=== PATIENT | male | born 1935 | race Caucasian/White ===

== ENCOUNTER → 2021-07-04 12:26 | Outpatient (CLI) | payer MEDICARE, SELFPAY ==
--- NOTE | ~2021-07-04 | XR_ITS ---
XR chest 2V 07/04/2021 12:55 Indication: COPD. Dyspnea. Procedure: 2 view chest Comparison: 02/20/2019 Findings: Status post median sternotomy for CABG. Pacemaker leads are stable. Cardiomegaly. 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 No focal pneumonia, edema, pleural ef fusion or pneumothorax. No acute osseous abnormality Impression: 1: No acute cardiopulmonary disease. Reviewed, dictated and finalized at location B. Impression: 1: No acute cardiopulmonary disease.
== END ==
PROVIDERS: Visit Provider Internal Medicine
DX: J44.9 Chronic obstructive pulmonary disease, unspecified (principal); I50.9 Heart failure, unspecified; I51.7 Cardiomegaly
CPT/HCPCS: 71046

== ENCOUNTER 2022-06-08 14:55 | Outpatient (CLI) | payer MEDICARE, SELFPAY ==
--- NOTE | ~2022-06-08 | CT_ITS ---
EXAMINATION: CT lumbar spine wo con DATE: 06/08/2022 15:19 INDICATION: Low back pain. TECHNIQUE: Computed tomography (CT) of the lumbar spine was performed without intravenous contrast. A utomated exposure control and iterative reconstruction technique were employed. The dose-length produ ct was 1157.38 mGy-cm. COMPARISON: CT lumbar spine 10/27/2014 FINDINGS: Partially visualized is cardiomegaly. There is 7 degrees dextrocurvature of lumbar spine. T here is mild chronic anterior wedging of L2 vertebral body. There is 3 mm retrolisthesis of L3 on L4. There are changes of posterior fusion procedure at L4-L5 with pedicle screws. There is mildly decrea sed disc height at L1-L2 and severely decreased disc height at L3-L4 and L5-S1 with endplate remodeli ng. A bone stimulator is noted. There are bone graft donor sites in the bilateral iliac bones. The fo llowing disc levels are specifically discussed: L1-L2: The disc is bulging. There is severe bilateral facet joint osteoarthritis. There is mild bilat eral neural foraminal stenosis. There is mild central canal stenosis. L2-L3: The disc is bulging. There is severe bilateral facet joint osteoarthritis. There is moderate b ilateral neural foraminal stenosis. There is moderate central canal stenosis. L3-L4: The disc is bulging. There is severe bilateral facet joint osteoarthritis. There is moderate b ilateral neural foraminal stenosis. There is mild central canal stenosis. There is severe stenosis of right lateral recess. L4-L5: There is no facet joint hypertrophy. There is no neural foraminal stenosis. There is no centra l canal stenosis. L5-S1: The disc is bulging. There is severe bilateral facet joint osteoarthritis. There is moderate b ilateral neural foraminal stenosis. There is mild central canal stenosis. IMPRESSION: 1. Severe lumbar spondylosis, stable from 10/27/2014. 2. Posterior fusion procedure at L4-L5. Reviewed, dictated and finalized at location A.
== END 2022-06-08 14:56 | disposition home or self-care (01) ==
PROVIDERS: PCP Family Medicine; Visit Provider Family Medicine
DX: G89.29 Other chronic pain (principal); G95.19 Other vascular myelopathies; M54.9 Dorsalgia, unspecified; M47.816 Spondylosis without myelopathy or radiculopathy, lumbar region; Z98.1 Arthrodesis status
CPT/HCPCS: 72131

== ENCOUNTER 2022-08-06 09:45 | Outpatient (CLI) | payer MEDICARE, SELFPAY ==
[2022-08-06 10:28] LABS: INR 1.2; Prothrombin Time 14.7 Seconds (11.1-14.7)
== END 2022-08-06 09:46 | disposition home or self-care (01) ==
PROVIDERS: PCP Family Medicine; Visit Provider Pain Medicine Pain Medicine
DX: Z79.01 Long term (current) use of anticoagulants (principal)
CPT/HCPCS: 36415; 85610

== ENCOUNTER → 2022-10-09 09:43 | Outpatient (CLI) | payer MEDICARE, SELFPAY ==
--- NOTE | ~2022-10-09 | XR_ITS ---
AP view of the pelvis and AP and lateral views of the left hip Clinical history: Pain Findings: No acute fracture or dislocation is seen. Osseous alignment is anatomic. Right hip arthropl asty in place. There is moderate degenerative change of the left hip joint. Soft tissues are unremark able. Impression: Moderate degenerative change of the left hip joint. Right hip arthroplasty. Reviewed, dictated and finalized at location . 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 Right hip arthroplasty.
== END ==
PROVIDERS: PCP Family Medicine; Visit Provider Nurse Practitioner Family
DX: M25.552 Pain in left hip (principal); Z96.641 Presence of right artificial hip joint; R93.6 Abnormal findings on diagnostic imaging of limbs
CPT/HCPCS: 73502

== ENCOUNTER 2023-01-02 11:30 | Outpatient (CLI) | payer MEDICARE, SELFPAY ==
[2023-01-02 12:07] LABS: Sodium 141 mmol/L (137-145)
[2023-01-02 12:08] LABS: Anion Gap 6 mmol/L (8-16); Blood Urea Nitrogen 23 mg/dL (9-20); Carbon Dioxide 32 mmol/L (22-30); Chloride 103 mmol/L (98-107); Estimated Glomerular Filt Rate > 60; Glucose 92 mg/dL (65-110); Magnesium 2.3 mg/dL (1.6-2.3); Potassium 4.3 mmol/L (3.4-5.0)
[2023-01-02 12:10] LABS: INR 2.1; Prothrombin Time 22.5 Seconds (11.1-14.7)
== END 2023-01-02 11:31 | disposition home or self-care (01) ==
PROVIDERS: PCP Family Medicine; Visit Provider Internal Medicine Cardiovascular Disease
DX: Z01.812 Encounter for preprocedural laboratory examination (principal); I48.92 Unspecified atrial flutter; I48.0 Paroxysmal atrial fibrillation
CPT/HCPCS: 36415; 80048; 83735; 85610

== ENCOUNTER 2023-01-18 10:48 | Outpatient (CLI) | payer MEDICARE, SELFPAY ==
[2023-01-18 12:19] LABS: Basophils Percent Auto 0.4 % (0.2-1.2); Eosinophils Absolute Auto 0.1 K/mm3 (0-0.3); Eosinophils Percent Auto 1.4 % (0-4.4); Hematocrit 39.9 % (42.0-52.0); Hemoglobin 12.8 g/dL (14.0-18.0); Immature Granulocyte Absolute 0.03 K/mm3 (0.00-0.031); Immature Granulocyte Percent A 0.4 % (0-0.5); Lymphocytes Absolute Auto 1.14 K/mm3 (0.9-3.2); Lymphocytes Percent Auto 16.5 % (18.3-44.2); Mean Corpuscular HGB Conc 32.1 g/dl (32-36); Mean Corpuscular Volume 93.7 fl (80-100); Mean Platelet Volume 9.1 fl (7.4-10.4); Monocytes Absolute Auto 0.6 K/mm3 (0.1-0.6); Monocytes Percent Auto 8.5 % (2.6-8.5); Neutrophils Percent Auto 72.8 % (45.5-73.1); Platelet Count Result 151 k/mm3 (150-375); Red Blood Count 4.26 M/mm3 (4.6-6.20); Red Cell Distribution Width 16.2 % (11.5-14.5); White Blood Count 6.9 K/mm3 (4.5-10.0)
[2023-01-18 12:42] LABS: Alanine Aminotransferase 28 U/L (6-50); Albumin Level 4.2 g/dL (3.5-5.1); Alkaline Phosphatase 82 U/L (38-126); Anion Gap 3 mmol/L (8-16); Aspartate Amino Transferase 30 U/L (17-59); Bilirubin,Total 1.2 mg/dL (0.2-1.3); Blood Urea Nitrogen 23 mg/dL (9-20); Calcium 8.5 mg/dL (8.4-10.2); Carbon Dioxide 30 mmol/L (22-30); Chloride 106 mmol/L (98-107); Cholesterol 112 mg/dL (0-200); Estimated Glomerular Filt Rate > 60; Glucose 101 mg/dL (65-110); HDL Direct 42 mg/dL; Potassium 4.2 mmol/L (3.4-5.0); Sodium 139 mmol/L (137-145); Triglycerides 109 mg/dL (<150); Uric Acid 3.2 mg/dL (3.5-8.5)
[2023-01-18 12:53] LABS: LDL Cholesterol Direct 39 mg/dL
[2023-01-18 14:30] LABS: Hemoglobin A1C 5.7 % (<5.7)
== END 2023-01-18 10:49 | disposition home or self-care (01) ==
PROVIDERS: PCP Family Medicine; Visit Provider Internal Medicine Cardiovascular Disease
DX: R10.9 Unspecified abdominal pain (principal); M79.606 Pain in leg, unspecified; Z95.810 Presence of automatic (implantable) cardiac defibrillator; G20 Parkinson's disease; M19.90 Unspecified osteoarthritis, unspecified site; R20.0 Anesthesia of skin; I42.9 Cardiomyopathy, unspecified; R06.02 Shortness of breath; E78.2 Mixed hyperlipidemia; R42 Dizziness and giddiness; I50.9 Heart failure, unspecified; I49.3 Ventricular premature depolarization; I34.0 Nonrheumatic mitral (valve) insufficiency; G47.00 Insomnia, unspecified; K92.2 Gastrointestinal hemorrhage, unspecified; I49.01 Ventricular fibrillation; I47.20 Ventricular tachycardia, unspecified; R07.9 Chest pain, unspecified; M25.559 Pain in unspecified hip; D64.9 Anemia, unspecified; E03.9 Hypothyroidism, unspecified; I48.0 Paroxysmal atrial fibrillation; Z79.01 Long term (current) use of anticoagulants; I25.10 Atherosclerotic heart disease of native coronary artery without angina pectoris; I45.10 Unspecified right bundle-branch block; G47.30 Sleep apnea, unspecified; R19.7 Diarrhea, unspecified; N18.9 Chronic kidney disease, unspecified; Z85.828 Personal history of other malignant neoplasm of skin; I48.92 Unspecified atrial flutter; Z87.891 Personal history of nicotine dependence; Z86.69 Personal history of other diseases of the nervous system and sense organs; Z01.812 Encounter for preprocedural laboratory examination; Z01.810 Encounter for preprocedural cardiovascular examination; Z23 Encounter for immunization
CPT/HCPCS: 36415; 80053; 80061; 82248; 83036; 84550; 85025

== ENCOUNTER 2023-02-06 16:15 | Emergency (ER) | payer MEDICARE, SELFPAY ==
[2023-02-06 16:26] VITALS: BP 140/73; PULSE 84; RESP 18; TEMP 36.5; O2SAT 92
[2023-02-06 16:48] LABS: Appearance Urine Clear (Clear); Bilirubin Urine Negative (Negative); Blood Urine Negative (Negative); Color Urine Dark Yellow (Yellow); Glucose Urine UA Negative (Negative); Ketones Urine Negative (Negative); Leukocyte Esterase Ur Negative LEU/UL (Negative); Nitrate Urine Negative (Negative); Protein Urine Negative (Negative); Specific Grav Ur 1.015 (1.001-1.035); Urobilinogen Urine 0.2 mg/dL (<2.0)
[2023-02-06 16:52] LABS: Add Urine Microscopic? NO
--- NOTE | 2023-02-06 17:36 | ED.GENADULT ---
HPI - General Adult General Chief complaint: Urogenital-Male Stated complaint: sent by heart , concerned for bladder Time Seen by Provider: 02/06/23 17:25 History of Present Illness HPI narrative: 87-year-old male with a history of BPH here for evaluation of abnormal ultrasound done as an outpatient. Patient states that his booking officer ordered an abdominal ultrasound due to some nausea and diarrhea, this was done today and he was referred to the ED because his bladder was distended. Patient states that he did not urinate prior to the exam. He does state that he has some difficulty with urinary retention over the past year or so but he has been able to void and denies any discomfort in his abdomen, blood in his urine, burning with urination. This has been attributed to BPH in the past that he follows with Dr. Briceno. He has never required a urinary catheter. Related Data Home Medications Medication Instructions Recorded Confirmed allopurinol 300 mg tablet 300 mg PO DAILY 09/23/19 01/28/23 dofetilide 500 mcg capsule 500 mcg PO ONCE 09/23/19 01/28/23 magnesium oxide 400 mg PO DAILY 09/23/19 01/28/23 tamsulosin 0.4 mg capsule 0.4 mg PO DAILY 09/23/19 01/28/23 furosemide 40 mg tablet 20 mg PO QAM 04/26/21 01/28/23 sacubitril 24 mg-valsartan 26 mg 1 tablet PO BID 04/26/21 01/28/23 tablet (Entresto) atorvastatin 20 mg tablet 20 mg PO DAILY 10/26/21 01/28/23 budesonide 160 mcg-glycopyr 9 2 inh inhalation QAM AND QPM 10/26/21 01/28/23 mcg-formot 4.8 mcg/actuation HFA inhaler (Breztri Aerosphere) cholecalciferol (vitamin D3) 50 50 mcg PO DAILY 03/02/22 01/28/23 mcg (2,000 unit) capsule omega-3 417 mg-dha 120 mg-epa-276 cap PO 03/02/22 01/28/23 mg-fish oil 600 mg-tumeric capsule ([place] MonoPure Curcumin EC) turmeric 400 mg capsule mg PO 03/02/22 01/28/23 warfarin 5 mg tablet 7.5 mg PO QMWF 04/25/22 01/28/23 Allergies Allergy/AdvReac Type Severity Reaction Status Date / Time codeine Allergy Mild rash Verified 02/06/23 16:17 Review of Systems Review of Systems: Gen.: Denies fevers or chills Eyes: Denies eye pain or visual change ENT: Denies congestion Respiratory: Denies shortness of breath or cough CV: Denies chest pain or palpitations GI: Denies abdominal pain nausea, emesis or diarrhea reports chronic urinary retention. 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 Smoked 22 years, less than 1/2 ppd. Surgical History Surgical History AICD (automatic cardioverter/defibrillator) present H/O mitral valve replacement History of total hip arthroplasty R Family History Family History Sibling Family history of cardiovascular disease, Onset Age: 49 Mother Family history of malignant neoplasm, Onset Age: 82 Other Family history of Hodgkin's lymphoma Family history of gastrointestinal disorder Hypertension Social History Social History (Updated 01/25/23 @ 09:44 by Yamileth Malone) Social History: Smoking status: Former smoker Tobacco type: cigarettes Second hand tobacco smoke exposure: No Smoking end date: 09/16/75 Alcohol intake: never Substance use: never Substance use type: does not use Lack of Transportation: No Lack of Food: Never True Current Housing: I Have Housing Concerned About Future Housing: No Difficulty Paying Gas/Electric Bills: No Difficult
[2023-02-06 18:00] VITALS: BP 112/78; PULSE 80; RESP 16; O2SAT 98
--- NOTE | 2023-02-06 18:16 | PC.NURSE ---
bladder scan showing 360ml of urine in bladder after attempting to urinate
[2023-02-06] MEDS: LIDOCAINE HCL 2% GEL UROJET 10 ML PKG (18:44)
--- NOTE | 2023-02-06 18:45 | PC.NURSE ---
attempted to insert a 16Fr indwelling urinary catheter without success. catheter would not advance. urojet instilled into urethra preparing for a coude.
[2023-02-06 18:48] VITALS: BP 127/85; PULSE 80; RESP 16; O2SAT 97
[2023-02-06 19:26] VITALS: BP 133/82; PULSE 80; RESP 17; TEMP 36.6; O2SAT 98
== END 2023-02-06 20:56 | disposition home or self-care (01) ==
PROVIDERS: Emergency Medicine; Emergency Provider Physician Assistant; PCP Family Medicine
DX: N40.1 Benign prostatic hyperplasia with lower urinary tract symptoms (principal); R33.8 Other retention of urine; I48.20 Chronic atrial fibrillation, unspecified; Z95.810 Presence of automatic (implantable) cardiac defibrillator; Z96.641 Presence of right artificial hip joint; Z95.2 Presence of prosthetic heart valve; Z87.891 Personal history of nicotine dependence; Z79.01 Long term (current) use of anticoagulants
CPT/HCPCS: 51702; 81003; 99283

== ENCOUNTER → 2023-05-07 15:37 | Outpatient (CLI) | payer MEDICARE, SELFPAY ==
--- NOTE | ~2023-05-07 | XR_ITS ---
EXAMINATION: XR knee RT min 4V DATE: 05/07/2023 16:24 INDICATION: Right knee pain and swelling TECHNIQUE: Four views of the right knee were obtained. COMPARISON: None. FINDINGS: Alignment is normal. No fracture or osteochondral lesion. There is moderate tricompartmenta l osteoarthritis. A small knee joint effusion is present. Calcified atherosclerosis is noted. IMPRESSION: 1. Tricompartmental osteoarthritis and small knee joint effusion without acute osseous abnormality. Reviewed, dictated and finalized at location A.
== END ==
PROVIDERS: PCP Family Medicine; Visit Provider Nurse Practitioner Family
DX: M25.561 Pain in right knee (principal); M17.12 Unilateral primary osteoarthritis, left knee
CPT/HCPCS: 73564

== ENCOUNTER 2023-08-30 11:46 | Outpatient (CLI) | payer MEDICARE, SELFPAY | END 2023-08-30 11:47 | disposition home or self-care (01) | PROVIDERS: PCP Family Medicine; Visit Provider Physician Assistant | DX: E03.9 Hypothyroidism, unspecified (principal) | CPT/HCPCS: 36415; 84443 ==

== ENCOUNTER 2023-10-30 12:30 | Outpatient (RCR) | payer MEDICARE, SELFPAY ==
--- NOTE | 2023-10-18 14:06 | STOPEVAL1 ---
Assessment and note entered by Shae Chun CEMENTING MACHINE OPERATOR Evaluation Information Assessment Status Evaluation Reported Pain Level Pain Score 0: Self Report Assessment ST Clinical Summary BEDSIDE SWALLOW EVALUATION The patient was seen for a Bedside Swallow Evaluation at the request of his physician. Patient has no specific history, according to him, that would lend itself to Dysphagia. He reports that he has difficulty swallowing liquids, that it does cause me to strangle and cough a lot. Patient reports that he generally does tolerate food consistencies well but that if he is not careful, he can suck food into my lungs, too. He reports that these issues are long-standing. The patient was presented with thin liquid per cup /straw, pudding, fruit cocktail, and elliott cracker. He exhibited intermittent throat clearing throughout this evaluation after consuming all consistencies except the pudding. No cough was observed, no complaints of pharyngeal residue were offered, and vocal quality was clear throughout. Patient was instructed about the anatomy and physiology of normal swallowing using verbal, visual, and written aids, and then abnormal swallowing with resultant signs/symptoms of aspiration were described. Patient voiced understanding and admitted he does not feel that his valve is closing correctly, contributing to frequent coughing. Patient was seen for a treatment including instruction of head flexion, purpose and how to use it including demonstration and verbal/visual/ written instructions. He was then taught and provided with a written list of six exercises for strengthening the muscles of the swallowing including base of tongue retraction exercises, the Masaka procedure, and effortful swallows with chin tuck against resistance. Patient voiced and demonstrated good understanding of home exercise program. Patient will be seen for an additional three visits to assess response to use of head flexion and home exercise p
--- NOTE | 2023-10-22 11:56 | OPREHPOC ---
Outpatient Therapy Plan of Care This is a Multidisciplinary Plan of Care that may contain components documented by all disciplines (PT, OT, and ST.) ST Problem 1 ST Problem #[address] Goal 1 Goal 1. Patient will voice and demonstrate good understanding of normal vs. abnormal swallowing skills, use of head flexion, and purpose and use of home exercise program to improve the swallowing . Target Visit [address] Problem #[address] Goal 1 Goal 1. Patient will complete a variety of laryngeal elevation and base of tongue retraction exercises, along with the Sherice procedure and hard, effortful swallows using chin tuck against resistance with good strength and effort. Target Visit 3 ST Goal 2 Goal 2. Patient will report reduced coughing/throat clearing during meals at home and during therapy tasks from frequent to minimal. Target Visit 3
--- NOTE | 2023-11-01 10:23 | STOPDC ---
Assessment and note entered by Shae Chun, CREDIT VERIFIER Reported Pain Level Pain Score 0: Self Report Assessment ST Clinical Summary TREATMENT NOTE AND DISCHARGE SUMMARY Patient seen for swallowing evaluation and then two additional treatments for swallowing disorder. Patient was instructed in the use of laryngeal adduction, laryngeal elevation, and base of tongue retraction exercises in order to improve the strength of the swallowing to reduce coughing, throat clearing when consuming liquids, especially, but all consistencies. Patient voiced and demonstrated good ability to complete the exercises. He reports he completes the program at home, initially admitting he was not completing them as frequently as he should, but by time of discharge, today at last treatment session, he admits he has been completing them more often as he can see the benefit. He initially complained of coughing frequently on thin liquids but today, he would consider his coughing to be more intermittent, not every sip. While completing the exercises today, he was noted to cough twice in the 60 minute session and then stated that he revealed his problem to me, perhaps hoping that he would not cough indicating significant improvement. In spite of demonstrating his dysphagia, he still requested discharge as he understands that at this point, continuing would involve repetition of exercises and he feels he can do them at home independently with his 's assistance. agreed to continue to encourage patient to complete home program on a regular basis. Patient is discharged today with all goals for instruction and understanding of home program achieved. Additionally, a swallowing goal was written with the goal to demonstrate minimal difficulty however patient does admit that drinking the water can still cause trouble. Goal as written is achieved however patient continues to require use of head flexion, small sips, and to continue home exercise program. Patient and voiced understanding of discharge recommendations. Plan of Care ST Services Indicated No
== END 2023-11-01 13:34 | disposition home or self-care (01) ==
LOC: ANHST 12:30
PROVIDERS: PCP Family Medicine; Visit Provider Family Medicine
DX: R13.10 Dysphagia, unspecified (principal); R09.89 Other specified symptoms and signs involving the circulatory and respiratory systems
CPT/HCPCS: 92526; 92610

== ENCOUNTER 2023-11-26 11:49 | Outpatient (CLI) | payer MEDICARE, SELFPAY ==
[2023-11-26 12:43] LABS: Basophils Percent Auto 0.4 % (0.2-1.2); Eosinophils Absolute Auto 0.2 K/mm3 (0-0.3); Eosinophils Percent Auto 1.6 % (0-4.4); Hemoglobin 13.1 g/dL (14.0-18.0); Immature Granulocyte Absolute 0.19 K/mm3 (0.00-0.031); Immature Granulocyte Percent A 1.9 % (0-0.5); Lymphocytes Absolute Auto 0.85 K/mm3 (0.9-3.2); Lymphocytes Percent Auto 8.5 % (18.3-44.2); Mean Corpuscular HGB Conc 31.2 g/dl (32-36); Mean Corpuscular Hemoglobin 29.6 pg (26-34); Mean Corpuscular Volume 94.8 fl (80-100); Mean Platelet Volume 9.5 fl (7.4-10.4); Monocytes Absolute Auto 0.9 K/mm3 (0.1-0.6); Monocytes Percent Auto 9.4 % (2.6-8.5); Neutrophils Absolute Auto 7.8 K/mm3 (1.3-6.7); Neutrophils Percent Auto 78.2 % (45.5-73.1); Platelet Count Result 158 k/mm3 (150-375); Red Blood Count 4.43 M/mm3 (4.6-6.20); Red Cell Distribution Width 17.1 % (11.5-14.5)
[2023-11-26 12:59] LABS: Alanine Aminotransferase 27 U/L (6-50); Alkaline Phosphatase 85 U/L (38-126); Anion Gap 0 mmol/L (8-16); Aspartate Amino Transferase 27 U/L (17-59); Bilirubin,Total 1.8 mg/dL (0.2-1.3); Blood Urea Nitrogen 25 mg/dL (9-20); Calcium 9.2 mg/dL (8.4-10.2); Carbon Dioxide 31 mmol/L (22-30); Chloride 105 mmol/L (98-107); Cholesterol 144 mg/dL (0-200); Estimated Glomerular Filt Rate > 60; Glucose 98 mg/dL (65-110); HDL Direct 53 mg/dL; Potassium 4.5 mmol/L (3.4-5.0); Sodium 136 mmol/L (137-145); Triglycerides 118 mg/dL (<150)
[2023-11-26 13:11] LABS: LDL Cholesterol Direct 66 mg/dL
[2023-11-26 13:13] LABS: Digoxin < 0.5 ng/mL (0.8-2.0)
[2023-11-26 14:13] LABS: Free T4 Free Thyroxine 1.37 ng/mL (0.78-2.19)
== END 2023-11-26 11:50 | disposition home or self-care (01) ==
LOC: ANHLAB 11:54
PROVIDERS: PCP Family Medicine; Visit Provider Family Medicine
DX: I50.9 Heart failure, unspecified (principal); E78.2 Mixed hyperlipidemia; I10 Essential (primary) hypertension; E03.9 Hypothyroidism, unspecified
CPT/HCPCS: 36415; 80053; 80061; 80162; 84439; 84443; 85025

== ENCOUNTER 2024-05-08 13:33 | Outpatient (CLI) | payer MEDICARE, SELFPAY ==
[2024-05-08 14:01] LABS: Basophils Percent Auto 0.4 % (0.2-1.2); Eosinophils Percent Auto 0.6 % (0-4.4); Hematocrit 36.8 % (42.0-52.0); Hemoglobin 11.8 g/dL (14.0-18.0); Immature Granulocyte Absolute 0.09 K/mm3 (0.00-0.031); Immature Granulocyte Percent A 1.3 % (0-0.5); Lymphocytes Absolute Auto 0.96 K/mm3 (0.9-3.2); Lymphocytes Percent Auto 13.7 % (18.3-44.2); Mean Corpuscular HGB Conc 32.1 g/dl (32-36); Mean Corpuscular Hemoglobin 30.1 pg (26-34); Mean Corpuscular Volume 93.9 fl (80-100); Mean Platelet Volume 9.1 fl (7.4-10.4); Monocytes Absolute Auto 0.7 K/mm3 (0.1-0.6); Monocytes Percent Auto 9.7 % (2.6-8.5); Neutrophils Absolute Auto 5.2 K/mm3 (1.3-6.7); Neutrophils Percent Auto 74.3 % (45.5-73.1); Platelet Count Result 179 k/mm3 (150-375); Red Blood Count 3.92 M/mm3 (4.6-6.20); Red Cell Distribution Width 16.6 % (11.5-14.5)
[2024-05-08 14:12] LABS: INR 1.5; Prothrombin Time 18.8 Seconds (11.1-14.7)
[2024-05-08 14:13] LABS: Alanine Aminotransferase 17 U/L (6-50); Albumin Level 3.9 g/dL (3.5-5.1); Alkaline Phosphatase 81 U/L (38-126); Anion Gap 6 mmol/L (4-12); Aspartate Amino Transferase 27 U/L (17-59); Bilirubin,Total 1.1 mg/dL (0.2-1.3); Blood Urea Nitrogen 20 mg/dL (9-20); Calcium 8.7 mg/dL (8.4-10.2); Carbon Dioxide 31 mmol/L (22-30); Chloride 102 mmol/L (98-107); Estimated Glomerular Filt Rate > 60; Glucose 96 mg/dL (65-110); Potassium 4.3 mmol/L (3.4-5.0); Sodium 139 mmol/L (137-145)
[2024-05-08 14:13] LABS: Partial Thromboplastin Time 37.6 Seconds (22.3-36.8)
== END 2024-05-08 13:34 | disposition home or self-care (01) ==
LOC: ANHLAB 13:35
PROVIDERS: PCP Family Medicine; Visit Provider Internal Medicine Cardiovascular Disease
DX: I48.0 Paroxysmal atrial fibrillation (principal); I50.9 Heart failure, unspecified; I48.92 Unspecified atrial flutter; Z79.01 Long term (current) use of anticoagulants
CPT/HCPCS: 36415; 80053; 85025; 85610; 85730

== ENCOUNTER 2024-05-21 12:30 | Outpatient (CLI) | payer MEDICARE, SELFPAY ==
--- NOTE | ~2024-05-21 | CT_ITS ---
EXAMINATION: CT lumbar spine wo con DATE: 05/21/2024 13:10 INDICATION: Lumbar radicular pain. TECHNIQUE: Computed tomography (CT) of the lumbar spine was performed without intravenous contrast. A utomated exposure control and iterative reconstruction technique were employed. The dose-length produ ct was 1015.54 mGy-cm. COMPARISON: CT lumbar spine 06/08/2022 FINDINGS: The bladder is markedly distended. There is 4 degrees dextrocurvature of lumbar spine. Ther e is mild chronic anterior wedging of L1 and L2 vertebral bodies. There are changes of posterior fusi on procedure L4-L5 with pedicle screws. There is mildly decreased disc height at L1-L2 and severely d ecreased disc height at L3-L4 and L5-S1. A bone stimulator is noted. The following disc levels are sp ecifically discussed: L1-L2: The disc is bulging. There is severe bilateral facet joint osteoarthritis. There is mild bilat eral neural foraminal stenosis. There is mild central canal stenosis. L2-L3: The disc is bulging. There is severe bilateral facet joint osteoarthritis. There is moderate b ilateral neural foraminal stenosis. There is moderate central canal stenosis. L3-L4: The disc is bulging. There is severe bilateral facet joint osteoarthritis. There is moderate b ilateral neural foraminal stenosis. There is mild central canal stenosis. There is severe stenosis of right lateral recess. L4-L5: The disc is bulging. There is no facet joint hypertrophy. There is mild bilateral neural iftikhar inal stenosis. There is no central canal stenosis. There is posterior decompression. L5-S1: The disc is bulging. There is severe bilateral facet joint osteoarthritis. There is moderate b ilateral neural foraminal stenosis. There is mild central canal stenosis. IMPRESSION: 1. Severe lumbar spondylosis, stable from 06/08/2022. 2. Posterior fusion procedure at L4-L5. Reviewed, dictated and finalized at location A.
== END 2024-05-21 12:31 | disposition home or self-care (01) ==
LOC: MICIMG 12:31
PROVIDERS: PCP Family Medicine; Visit Provider Nurse Practitioner Family
DX: M43.06 Spondylolysis, lumbar region (principal); Z98.1 Arthrodesis status
CPT/HCPCS: 72131

== ENCOUNTER 2024-12-16 10:13 | Outpatient (CLI) | payer MEDICARE, SELFPAY ==
[2024-12-16 11:03] LABS: Hematocrit 37.3 % (42.0-52.0); Mean Corpuscular HGB Conc 32.2 g/dl (32-36); Mean Corpuscular Hemoglobin 29.8 pg (26-34); Mean Corpuscular Volume 92.6 fl (80-100); Mean Platelet Volume 9.2 fl (7.4-10.4); Platelet Count Result 136 k/mm3 (150-375); Red Blood Count 4.03 M/mm3 (4.6-6.20); Red Cell Distribution Width 16.3 % (11.5-14.5); White Blood Count 4.8 K/mm3 (4.5-10.0)
[2024-12-16 11:14] LABS: Alanine Aminotransferase 17 U/L (6-50); Alkaline Phosphatase 96 U/L (38-126); Anion Gap 8 mmol/L (4-12); Aspartate Amino Transferase 23 U/L (17-59); Bilirubin,Total 1.4 mg/dL (0.2-1.3); Blood Urea Nitrogen 19 mg/dL (9-20); Carbon Dioxide 27 mmol/L (22-30); Chloride 105 mmol/L (98-107); Cholesterol 122 mg/dL (0-200); Estimated Glomerular Filt Rate > 60; Glucose 102 mg/dL (65-110); HDL Direct 43 mg/dL; Potassium 4.3 mmol/L (3.4-5.0); Sodium 140 mmol/L (137-145); Triglycerides 93 mg/dL (<150)
[2024-12-16 11:25] LABS: LDL Cholesterol Direct 45 mg/dL; NT Pro B Type Natriuretic Pept 1040 pg/mL (19.9-100)
--- OUTSIDE RECORDS SUMMARY | 2024-12-16 11:31 | XMS_ITS | Encounter Summary ---
Author Organization [facility] Address [address] [place] [address] Phone Care Team Providers Care Extruder Operator Horizontal Name Role Phone Srini Elizabeth MD Primary Care Provider [phone] Hanna Carey RN Unavailable [phone] Suzi Mitchell MD Primary Care Provider Encounter Details Date Type Department Care Team (Late st Contact Info) Description 03/18/2019 Telephone [facility] Orthopaedic Surgery [address] [facility] [facility] 1[address] [place] [address] Len Colon MD [address] [facility] [address] [place] [address] Social History Tobacco Use Types Packs/Day Years Used Date Smoking Tobacco: Some Days Cigarettes Last attempted to quit: 09/16/1975 Alcohol Use Standard Drinks/Week Comments Yes 0 (1 standard drink = 0.6 oz pur e alcohol) Sex and Gender Information Value Date Recorded Sex Assigned at Not on file 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 Gender Identity Not on file Sexual Orientation Not on file documented as of this encounter Plan of Treatment Not on file documented as of this encounter Visit Diagnoses Not on filedocumented in this encounter Care Teams Extruder Operator Horizontal Relationship Specialty Start Date End Date Srini Elizabeth MD [address] [place] [address] PCP - General 07/15/14 04/16/22 Suzi Mitchell MD [address] [facility] [address] [place] [address] PCP - General Family Medicine 04/17/22 Hanna Carey, RN [address] [place] [address] Outpatient Senior Medical Transcriptionist 03/12/1907/05 documented as of this encounter
--- OUTSIDE RECORDS SUMMARY | 2024-12-16 11:31 | XMS_ITS | Clinical Summary ---
Author Organization [facility] Address [address] [place] [address] Care Team Providers Care Family Court Counsellor Name Role Phone Suzi Mitchell MD Primary Care Provider Allergies Active Allergy Reactions Criticality Noted Date Comments Codeine Other (See comments) Low 10/28/2015 Reaction: FAINTNESS, DISORIENTED Patient is taking it now, and tolerating well Medications dofetilide (TIKOSYN) 500 mcg capsuleIndications :Cardioversion of Atrial Fibrillation Take 500 mcg by mouth 2 (two) times a day 1 12/13/19 19 Active finasteride (PROSCAR) 5 mg tabletIndications: prostate Take 5 mg by mouth nightly 12/19/19 19 Active tamsulosin (FLOMAX) 0.4 mg extended release capsuleIndications :prostate Take 0.4 mg by mouth nightly 12/19/19 19 Active DIGOX 125 mcg tabletIndications: heart Take 125 mcg by mouth nightly 0 12/12/19 19 Active allopurinol (ZYLOPRIM) 300 mg tabletIndications: prevention of acute gout attack Take 300 mg by mouth every morning 3 11/20/19 19 Active furosemide (LASIX) 40 mg tabletIndications: Edema,hypertension Take 40 mg by mouth every morning 0 11/20/19 19 Active levothyroxine (SYNTHROID, LEVOTHROID) 75 mcg tabletIndications: hypothyroidism Take 75 mcg by mouth every morning 1 11/03/19 19 Active atorvastatin (LIPITOR) 20 mg tabletIndications: coronary artery disease,hyperlipid emia Take 20 mg by mouth every morning 11 01/23/20 19 Active neomycin-polymyxin -HC (CORTISPORIN) 3.5-10,000-1 mg/mL-unit/mL-% otic suspension PLACE 1 - 2 DROPS BID AEA FOR 10 DAYS 0 01/22/20 19 Active warfarin (COUMADIN) 2 mg tabletIndications: Anticoagulation monitoring, special range TAKE 2 AND 1/2 TABLETS BY MOUTH DAILY AT 5:00 PM 225 tablet 1 04/08/20 19 Active Additional Information Patient taking differently: 2.5 mg oral See admin instructions, TAKE 2 AND 1/2 TABLETS BY MOUTH DAILY AT 5:00 PM,Indications: atrial fibrillation, Informant: Self, Reported on 04/20/2022 nitroglycerin (NITROSTAT) 0.4 mg SL tablet 03/29/20 19 Active AMOXICILLIN 500 mg capsuleIndications :Prophylaxis, Medical Take 1,000 mg by mouth as needed 1 hr before dentist 2 08/18/20 19 Active umeclidinium-vilan teroL (Anoro Ellipta) 62.5-25 mcg/actuation blister with deviceIndications: Bronchospasm Prevention with COPD Inhale 2 puffs every morning 07/08/20 20 Active traMADoL (ULTRAM) 50 mg tabletIndications: Pain Take 50 mg by mouth as needed Active magnesium oxide (MAG-OX) 400 mg (241.3 mg elemental magnesium) tabletIndications: supplement Take 400 mg by mouth 2 (two) times a day 10/30/19 14 Active gabapentin (NEURONTIN) 100 mg capsuleIndications :Neuropathic Pain Take 100 mg by mouth nightly 07/08/20 20 Active sacubitriL-valsart an (ENTRESTO) 24-26 mg tabletIndications: chronic heart failure Take 0.5 tablets by mouth every morning Active warfarin (COUMADIN) 5 mg tabletIndications: atrial fibrillation Take 5 mg by mouth as directed 11/07/19 22 Active rOPINIRole (REQUIP) 1 mg tabletIndications: Idiopathic Parkinsonism Take 1 mg by mouth 2 (two) times a day 10/22/19 22 Active potassium chloride ER 20 mEq CR tabletIndications: supplement Take 20 mEq by mouth every morning 10/22/19 22 Active levoFLOXacin (LEVAQUIN) 500 mg tablet TAKE 1 TABLET BY MOUTH BEFORE DENTAL SURGERY 02/17/20 22 Active acetaminophen (TYLENOL) 500 mg tabletIndications: Pain Take 1,000 mg by mouth every 6 (six) hours as needed for pain Active mupirocin (BACTROBAN) 2 % ointmentIndication s:Primary osteoarthritis of left hip Apply topically 2 (two) times a day Apply to both nares twice daily for 5 days prior to surgery. 22 g 04/27/20 22 Active Active Problems Problem Noted Date Diagnosed Date Primary osteoarthritis of left hip 03/05/2022 Overview (03/05/2022): Added automatically from request for surgery [id number] Degeneration of intervertebral disc 01/18/2021 Primary localized osteoarthritis of pelvic regio n and thigh 01/18/2021 Mitral stenosis 12/30/2020 Encounter for immunization 12/02/2020 Numbness of foot 12/02/2020 Anemia 07/08/2020 GI bleed 07/08/2020 Hematoma 03/31/2019 Assessment & Plan (04/01/2019 1:47 PM CDT): 83 yo male with multiple medical comorbidities s/p R CHELE on 03/25/19 c/b postoperative hematoma s/p I+D on 03/29/19. There are no signs or symptoms of infection based on history or exam and reportedly no c/f infection intra op. Pt currently on vanc/cefazolin per primary team. Hip hematoma cx remain NGTD. Pt on vanc/cefazolin per primary team. Recommendations: - if he remains on vanc/cefazolin, would check a VT before next dose. Goal VT 15-20. Monitor LFTs as his ast was very slightly elevated. - Our clinical suspicion of an active infection is very low and wound not plan on [facility] ab[facility] at this time. We will follow culture results from his hematoma. If these are positive, our plan will likely change. - ID will continue to follow peripherally while in house- please call with questions or concerns. Primary osteoarthritis of right hip 02/18/2019 Overview (02/18/2019): Added automatically from request for surgery [id number] Arteriosclerosis of coronary artery 01/20/2019 Chest pain 01/02/2019 Arthralgia of right lower leg 12/18/2018 Hypothyroidism 06/29/2016 RBBB 11/11/2015 Overview (01/18/2021): QRS more than 150msec Chronic kidney disease, unspecified 09/15/2015 Personal history of nicotine dependence 08/26/20 Parkinson's disease 08/23/2014 Encounter for postoperative care 07/15/2014 Overview (12/21/2016): Postoperative visit Cholelithiasis 05/31/2014 Overview (12/21/2016): Cholelithiasis Cardiomyopathy 07/08/2013 Shortness of breath 10/10/2012 Atrial fibrillation 10/10/2012 Ventricular tachycardia 10/10/2012 Presence of automatic (implantable) cardiac defi brillator 08/09/2008 Dyslipidemia 09/16/1959 Immunizations Immunization Administration Dates Next Due Pfizer SARS-CoV-2 Monovalent Vaccination (12+ Yrs) PURPLE 01/03/2022,06/19/2021,12/08/2020,2020 Surgical History Surgery Date Site/Laterality Comments CARDIAC DEFIBRILLATOR PLACEMENT 09/16/2007 - 09/15/[address] UDY AND ABLATION 09/16/2012 - 09/15/2013 PATTERSON-MAZE MICROWAVE ABLATION 09/16/2005 - 09/15/2006 MITRAL VALVE REPAIR 09/16/2005 - 09/15/2006 CHOLECYSTECTOMY 06/16/2014 - 07/16/2014 HAND SURGERY multiple times LUMBAR FUSION 09/16/1995 - 09/15/1996 Medical History Medical History Date Comments Sleep apnea mouth gaurd Duodenal ulcer Family History Medical History Relation Name Comments Stroke Brother Stroke Father Stroke Mother Relation Name Status Comments Brother Alive Father Mother Social History Tobacco Use Types Packs/Day Years Used Date Smoking Tobacco: Former Cigarettes Q uit: 1975 Pipe Cigars Smokeless Tobacco: Never Comments:1970 Alcohol Use Standard Drinks/Week Comments Yes 0 (1 standard drink = 0.6 oz pur e alcohol) AUDIT-C Answer Date Recorded Q1: How often do you have a drink containing alcohol? Never 04/20/2022 Q2: How many drinks containi ng alcohol do you have on a typical day when you are drinking? Patient does not drink Q3: How often do you have si x or more drinks on one occasion? 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 Gender Identity Not on file Sexual Orientation Not on file Obstetrics History Last Filed Vital Signs Vital Sign Reading Time Taken Comments Blood Pressure 103/62 04/20/2022 11:43 AM CDT Pulse 78 04/20/2022 11:40 AM CDT Temperature 37.3 C (99.1 F) 04/06/2019 8:10 AM CDT Respiratory Rate 18 04/06/2019 8:10 AM CDT Oxygen Saturation 96% 04/20/2022 11:40 AM CDT Inhaled Oxygen Concentration - - Weight 97.1 kg (214 lb) 04/20/2022 11:15 AM CDT Height 182.9 cm (6') 04/20/2022 11:15 AM CDT Body Mass Index 29.02 04/20/2022 11:15 AM CDT Plan of Treatment Health Maintenance Due Date Last Done Comments Depression Screening 1935 DTaP/Tdap/Td Vaccine (1 - Tdap) 12/22/1946 Hepatitis B Screening 12/22/1953 Pneumococcal vaccine 65+ (1 of 1 - PCV) 12/22/1985 Zoster Vaccine (1 of 2) 12/22/1985 Well Visit 65+ 12/22/2000 Fall Risk Assessment 04/20/2023 04/20/2022 Covid-19 Vaccine (5 - 2023-2 5 season) 2024 01/03/2022, 06/19/2021, 12/08/2020, Additional history exists Influenza Vaccine (#1) 2024 Medical Devices Implanted Type Area Wire Harness Design Engineer Device Identifier Shelf Expiration Date Model / Serial / Lot Icd Left: Chest [employer] [id number] 56mm Limit 4 Hole Hip F Hemisphere Offset Shell Acetabular - [id number] Implanted:Qty: 1 on 03/25/2019 by Len Colon MD at [facility] Right: Hip [employer] [id number] 09/17/2028 [id number] / / [id number] [employer] [id number] Trilogy 6.5mm 25mm Self Tap Screw Bone - [id number] Implanted:Qty: 1 on 03/25/2019 by Len Colon MD at [facility] Right: Hip [employer] [id number] 07/16/2028 [id number] / / [id number] [employer] [id number] Trilogy 6.5mm 20mm Self Tap Screw Bone - [id number] Implanted:Qty: 1 on 03/25/2019 by Len Colon MD at [facility] Right: Hip [employer] [id number] 08/15/2028 [id number] / / [id number] [employer] [id number] 44mm 2 Mobility Hip F Liner Acetabular - [id number] Implanted:Qty: 1 on 03/25/2019 by Len Colon MD at [facility] Right: Hip [employer] [id number] 01/16/2029 [id number] / / [id number] [employer] [id number] Taperloc 142mm Type 1 Press Fit Reduce Hip 133d 11 High Offset - [id number] Implanted:Qty: 1 on 03/25/2019 by Len Colon MD at [facility] Right: Hip [employer] 09/22/2028 [id number] / / [id number] [employer] [id number] Active Articulation 44mm Bearing Hip Arcomxl Sterile 28mm Modular - [id number] Implanted:Qty: 1 on 03/25/2019 by Len Colon MD at [facility] Right: Hip [employer] [id number] 01/20/2024 [id number] / / [id number] [employer] [id number] 28mm Modular Hip Standard Head Femoral Biolox Delta - [id number] Implanted:Qty: 1 on 03/25/2019 by Len Colon MD at [facility] Right: Hip [employer] 08/13/2028 [id number] / / [id number] Insurance UHC MEDICARE ADVANTAGE [facility] MEDICARE Address: [address] [address] [place] [address] MEDICARE FORMERLY [facility] MEDICARE FORMERLY [facility] MEDICARE ADVANTAGE [facility] MEDICARE ADVANTAGE Advance Directives For more information, please contact: [phone] * Full Code (Latest Code Status on File) Date Activated Date Inactivated Comments 03/25/2019 6:35 PM 04/06/2019 7:[address] Counsellor Relationship Specialty Start Date End Date Suzi Mitchell MD [address] [facility] [address] [place] [address] PCP - General Family Medicine 04/17/22
--- OUTSIDE RECORDS SUMMARY | 2024-12-16 11:31 | XMS_ITS | CONTINUITY OF CARE DOCUMENT ---
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 Cony Chatman RN CAD active Hilda Quinteros MD CARDIOMYOPATHY active Jordyn Mcwilliams ATRIAL FIBRILLATION active Linda Samuel Unstable gait active Hilda Quinteros MD Abdominal pain active Garry Moreno Pre-procedural laboratory examination completed - Garry Moreno Dizziness active Garry Moreno Insomnia active Hilda Quinteros MD Hip pain active Hilda Quinteros MD Diarrhea active Saray Salazar Mitral stenosis active Saray Salazar Leg pain, bilateral active Saray Salazar Numbness in feet and legs active Saray Salazar s/p Vaccination for COVID-19 active Saray Salazar GI bleed active Saray Salazar Anemia active Saray Salazar Chest pain active Eloy Plata Preoperative cardiovascular evaluation active Eloy Plata Ventricular fibrillation active Essence Luis derson Hypothyroidism active Hilda Quinteros MD S/P BIV Biotronik ICD -/ Gen change BiV ICD [id number]/// Gen Change BiV ICD 05/14/24( NOT MRI SAFE/Med.Leads) active Tonja Lozada RBBB active Hilda Quinteros MD QRS more than 150msec Renal insufficiency chronic unspecified active Hilda Quinteros MD Tobacco use, quit active Hilda Quinteros MD Parkinson's disease active 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 Hilda Quinteros MD SKIN CANCER, HX OF active ? Hilda Quinteros MD CATARACT, HX OF active ? Hilda Quinteros MD ARTHRITIS active ? Hilda Quinteros MD CHF active ? Hilda Quinteros MD Dyslipidemia active Hilda Quinteros MD MITRAL INSUFFICIENCY-10/22 MVR active ? Hilda Quinteros MD ENCOUNTERS Date Type Provider Location Encounter Diag nosis - In-person encounter Office Visit Hilda Quinteros MD [facility] Unstable gait - In-person encounter Office Visit Hilda Quinteros MD [facility] - In-person encounter Office Visit Hilda Quinteros MD [facility] - In-person encounter Office Visit Hilda Quinteros MD [facility] Pre-procedural laboratory examination - In-person encounter Office Visit Hilda Quinteros MD [facility] - In-person encounter Office Visit Hilda Quinteros MD [facility] Abdominal pain - In-person encounter Office Visit Hilda Quinteros MD [facility] Dizziness - In-person encounter Office Visit Hilda Quinteros MD [facility] Hip painInsomnia - In-person encounter Office Visit Hilda Quinteros MD [facility] - In-person encounter Office Visit Hilda Quinteros MD [facility] - In-person encounter Office Visit Hilda Quinteros MD [facility] - In-person encounter Office Visit Hilda Quinteros MD [facility] - In-person encounter Office Visit Hilda Quinteros MD [facility] - In-person encounter Office Visit Hilda Quinteros MD [facility] - In-person encounter Office Visit Hilda Quinteros MD [facility] Diarrhea - In-person encounter Office Visit Hilda Quinteros MD [facility] Mitral stenosis - In-person encounter Office Visit Hilda Quinteros MD [facility] s/p Vaccination for COVID-19Numbness in feet and legsLeg pain, bilateral - In-person encounter Office Visit Hilda Quinteros MD [facility] AnemiaGI bleed - In-person encounter Office Visit Hilda Quinteros MD [facility] - In-person encounter Office Visit Hilda Quinteros MD [facility] - In-person encounter Office Visit Hilda Quinteros MD [facility] S/P BIV Biotronik ICD -/ Gen change BiV ICD [id number]/31/22// Gen Change BiV ICD 05/14/24( NOT MRI SAFE/Med.Leads)Preoperati ve cardiovascular evaluationChest pain - In-person encounter Office Visit Hilda Quinteros MD [facility] - In-person encounter Office Visit Hilda Quinteros MD [facility] - In-person encounter Office Visit Hilda Quinteros MD [facility] ATRIAL FLUTTERVentricular fibrillation - In-person encounter Office Visit Hilda Quinteros MD [facility] S/P BIV Biotronik ICD -/ Gen change BiV ICD Ibzvepxzb09/31/22// Gen Change BiV ICD 05/14/24( NOT MRI SAFE/Med.Leads) - In-person encounter Office Visit Hilda Quinteros MD [facility] DyslipidemiaFamily History of CVA or Stroke:Family History of Sudden Cardiac :Hypothyroidism - In-person encounter Office Visit Hilda Quinteros MD [facility] - In-person encounter Office Visit Hilda Quinteros MD [facility] - In-person encounter Office Visit Hilda Quinteros MD [facility] RBBB - In-person encounter Office Visit Hilda Quinteros MD [facility] - In-person encounter Office Visit Hilda Quinteros MD [facility] - In-person encounter Office Visit Hilda Quinteros MD [facility] Renal insufficiency chronic unspecified - In-person encounter Office Visit Hilda Quinteros MD [facility] Tobacco use, quit - In-person encounter Office Visit Hilda Quinteros MD [facility] Parkinson's disease - In-person encounter Office Visit Hilda Quinteros MD [facility] - In-person encounter Office Visit Hilda Quinteros MD [facility] - In-person encounter Office Visit Hilda Quniteros MD [facility] - In-person encounter Office Visit Hilda Quinteros MD [facility] - In-person encounter Office Visit Hilda Quinteros MD [facility] ATRIAL FLUTTER - In-person encounter Office Visit Hilda Quinteros MD [facility] MITRAL INSUFFICIENCY-10/22 MVRDyslipidemiaCHFARTHRIT ISCATARACT, HX OFSKIN CANCER, HX OFSLEEP APNEAVENTRICULAR TACHYCARDIAPVC'SSHORTNESS OF BREATH VITAL SIGNS Date Observation Value Provider Body Mass Index (Ratio) 29.51 kg/m2 Ben Quinteros MD blood pressure, diastolic 81 mm[Hg] Tequila nkLogic blood pressure, systolic 132 mm[Hg] Maria E kLogic blood pressure, diastolic 81 mm[Hg] Salvador hallman [facility] blood pressure, systolic 132 mm[Hg] Yenxi chavez [facility] blood pressure, cuff size regular Salvador yla [facility] oxygen saturation, oximetry 96 % Nicole [facility] pulse rate 78 /min [facility] E&M 217 [lb_av] Nicole [facility] height E&M 71.9 [in_i] [facility] Body Mass Index (Ratio) 29.78 kg/m2 Garry Moreno blood pressure, diastolic 78 mm[Hg] Dena Zhu blood pressure, systolic 120 mm[Hg] [facility] pulse rate 80 /min [facility] respiratory rate E&M 16 /min [facility] oxygen saturation, oximetry 90 % [facility] weight E&M 219 [lb_av] [facility] blood pressure, cuff size regular Vi [facility] height E&M 71.9 [in_i] [facility] Body Mass Index (Ratio) 29.51 kg/m2 [facility] blood pressure, cuff size regular Ke rri Gruenenfelder blood pressure, diastolic 80 mm[Hg] Ke rri Gruenenfelder blood pressure, systolic 122 mm[Hg] Ker ri Gruenenfelder oxygen saturation, oximetry 100 % Lesli Gruenenfelder respiratory rate E&M 12 /min Lesli G ruenenfelder pulse rate 80 /min Lesli Gruenenfe lder weight E&M 217 [lb_av] Lesli Gruenenfe ld height E&M 71.9 [in_i] Lesli Gruenenfe lder Body Mass Index (Ratio) 29.92 kg/m2 [facility] blood [facility], cuff size regular Ke rri Gruenenfelder blood pressure, diastolic 70 mm[Hg] Ke rri Gruenenfelder blood pressure, systolic 104 mm[Hg] Ker ri Gruenenfelder weight E&M 220 [lb_av] Lesli Gruenenfe lder oxygen saturation, oximetry 93 % Lesli Gruenenfelder respiratory rate E&M 12 /min Lesli G ruenenfelder pulse rate 78 /min Lesli Breannnenfe [facility] height E&M 71.9 [in_i] Lesli Emilianoe [facility] Body Mass Index (Ratio) 29.10 kg/m2 Garry Frost blood pressure, diastolic 71 mm[Hg] Tequila natyLog blood pressure, systolic 118 mm[Hg] Maria E [facility] oxygen saturation, oximetry 98 % Mihaela Saunders pulse rate 80 /min Mihaela Saunders respiratory rate E&M 18 /min Mihaela Saunders blood pressure, diastolic 71 mm[Hg] kathryn Saunders blood pressure, systolic 118 mm[Hg] She pawel Saunders blood pressure, cuff size large kathryn Saunders weight E&M 214 [lb_av] [facility] height E&M 71.9 [in_i] Mhiaela Saunders Body Mass Index (Ratio) 29.37 kg/m2 Garry [facility] blood pressure, diastolic 70 mm[Hg] eTquila nkLog blood pressure, systolic 102 mm[Hg] Maria E og blood pressure, cuff size regular Ke rri Gruenenfeld blood pressure, diastolic 70 mm[Hg] Ke rri Gruenenfelder blood pressure, systolic 102 mm[Hg] Meliton ri Breannnenfmarko oxygen saturation, oximetry 98 % Lesli Mireyanfmarko respiratory rate E&M 14 /min Lesli wild pulse rate 64 /min Lesli Gruenenfe [facility] weight E&M 216 [lb_av] Lesli Gruenenfe sharon height E&M 71.9 [in_i] Lesli Gruenenfe [facility] Body Mass Index (Ratio) 29.92 kg/m2 Garry Ahmedzai blood pressure, diastolic -1 mm[Hg] Li nkLogic blood pressure, systolic 131 mm[Hg] Maria E kLogic blood pressure, diastolic 74 mm[Hg] An maricel Compa blood pressure, systolic 131 mm[Hg] Laura jasmine Compa oxygen saturation, oximetry 98 % Shannon Compa pulse rate 57 /min Shannon Compa weight E&M 220 [lb_av] Shannon Compa blood pressure, cuff size large An maricel Compa height E&M 71.9 [in_i] Shannon Compa Body Mass Index (Ratio) 29.51 kg/m2 Ben Quinteros MD blood pressure, diastolic 73 mm[Hg] Maryanne moore Candelario blood pressure, systolic 120 mm[Hg] [facility] oxygen saturation, oximetry 96 % Aura Candelario pulse rate 85 /min Aura abbasi weight E&M 217 [lb_av] Aura abbasi respiratory rate E&M 16 /min Thu Candelario height E&M 71.9 [in_i] Aura abbasi Body Mass Index (Ratio) 28.69 kg/m2 Garry Ahmedzai blood pressure, diastolic 71 mm[Hg] Li nkLogic blood pressure, systolic 107 mm[Hg] Maria E kLogic blood pressure, diastolic 71 mm[Hg] Mi teresa Candelario blood pressure, systolic 107 mm[Hg] [facility] helle [place] oxygen saturation, oximetry 96 % Aura Candelario pulse rate 90 /min Aura abbasi weight E&M 211 [lb_av] Aura abbasi blood pressure, cuff size large Maryanne moore [employer] respiratory rate E&M 16 /min Thu Candelario height E&M 71.9 [in_i] Aura Alex abbasi Body Mass Index (Ratio) 29.24 kg/m2 Ben Quinteros MD blood pressure, cuff size large Ke rri Gruenenfelder blood pressure, diastolic 77 mm[Hg] Ke rri Gruenenfelder blood pressure, systolic 144 mm[Hg] Ker ri Gruenenfelder oxygen saturation, oximetry 99 % Lesli Gruenenfelder respiratory rate E&M 16 /min Lesli G ruenenfelder pulse rate 78 /min Lesli Gruenenfe [facility] weight E&M 215 [lb_av] Lesli Gruenenfe [facility] height E&M 71.9 [in_i] Lesli Gruenenfe [facility] Body Mass Index (Ratio) 29.37 kg/m2 [place] blood pressure, cuff size large Ke rri Gruenenfelder blood pressure, diastolic 74 mm[Hg] Ke rri Gruenenfelder blood pressure, systolic 120 mm[Hg] Ker ri Gruenenfelder oxygen saturation, oximetry 96 % Lesli Gruenenfelder respiratory rate E&M 14 /min Lesli G ruenenfelder pulse rate 72 /min Lesli Gruenenfe [facility] weight E&M 216 [lb_av] Lesli Gruenenfe [facility] height E&M 71.9 [in_i] Lesli Gruenenfe [facility] Body Mass Index (Ratio) 28.69 kg/m2 [place] blood pressure, cuff size large Ke rri Gruenenfelder blood pressure, diastolic 62 mm[Hg] Ke rri Gruenenfelder blood pressure, systolic 110 mm[Hg] Ker ri Gruenenfelder oxygen saturation, oximetry 92 % Lesli Gruenenfelder respiratory rate E&M 16 /min Lesli G ruenenfelder pulse rate 70 /min Lesli Gruenenfe lder weight E&M 211 [lb_av] Lesli Gruenenfe lder height E&M 71.9 [in_i] Lesli Gruenenfe lder Body Mass Index (Ratio) 27.88 kg/m2 [place] on blood pressure, diastolic 72 mm[Hg] Li nkLogic blood pressure, systolic 82 mm[Hg] Maria E kLogic blood pressure, cuff size large Ke rri Gruenenfelder blood pressure, diastolic 72 mm[Hg] Ke rri Gruenenfelder blood pressure, systolic 82 mm[Hg] Meliton ri Gruenenfelder oxygen saturation, oximetry 97 % Lesli Gruenenfelder respiratory rate E&M 16 /min Lesli G ruenenfelder pulse rate 76 /min Lesli Gruenenfe lder weight E&M 205 [lb_av] Lesli Gruenenfe lder height E&M 71.9 [in_i] Lesli Gruenenfe lder Body Mass Index (Ratio) 28.42 kg/m2 [place] blood pressure, cuff size large Ke rri Gruenenfelder blood pressure, diastolic 86 mm[Hg] Ke rri Gruenenfelder blood pressure, systolic 142 mm[Hg] Ker ri Gruenenfelder oxygen saturation, oximetry 98 % Lesli Gruenenfelder respiratory rate E&M 16 /min Lesli G ruenenfelder pulse rate 81 /min Lesli Grkirknenfe lder weight E&M 209 [lb_av] Lesli Gruenenfe lder height E&M 71.9 [in_i] Lesli Grkirknenfe [facility] Body Mass Index (Ratio) 29.51 kg/m2 [place] blood pressure, cuff size large Ke rri [facility] hospital[facility] blood pressure, diastolic 62 mm[Hg] Ke rri Gruenenfelder blood pressure, systolic 126 mm[Hg] Meliton massey Gruenenfelder oxygen saturation, oximetry 92 % Lesli Crainneevelynelder respiratory rate E&M 16 /min Lesli Alexis ruenenfelder pulse rate 79 /min Lesli Grkirknenfe [facility] weight E&M 217 [lb_av] Lesli Grjatine [facility] height E&M 71.9 [in_i] Lesli Gruenenfe [facility] Body Mass Index (Ratio) 30.03 kg/m2 Jord en Zheng blood pressure, diastolic 69 mm[Hg] Lynne Rios blood pressure, systolic 111 mm[Hg] Berna Rios oxygen saturation, oximetry 94 % Yuni Rios respiratory rate E&M 20 /min Amol Doughertyenson pulse rate 92 /min Yuni diazon weight E&M 220.8 [lb_av] Yuni jain height E&M 71.9 [in_i] Yuni houston Body Mass Index (Ratio) 27.20 kg/m2 Jord en Zheng blood pressure, diastolic 60 mm[Hg] Atul colvin Mcdonald blood pressure, systolic 100 mm[Hg] Lex Silverioam oxygen saturation, oximetry 98 % Alex Mcdonald respiratory rate E&M 16 /min [place] Mcdonald pulse rate 82 /min Alex Mcdonald weight E&M 200 [lb_av] Alex height E&M 71.9 [in_i] Alex Mcdonald Body Mass Index (Ratio) 28.56 kg/m2 Romie Plata oxygen saturation, oximetry 97 % Nayeli Chatman pulse rate 79 /min Nayeli Gunter s respiratory rate E&M 17 /min Nayeli Chatman blood pressure, cuff size large Cr pam Chatman blood pressure, diastolic 60 mm[Hg] Cr pam Chatman blood pressure, systolic 100 mm[Hg] Cry stabrenton Chatman weight E&M 210 [lb_av] Nayeli bain height E&M 71.9 [in_i] Nayeli Gunter s Body Mass Index (Ratio) 27.88 kg/m2 Romie goodson Boni blood pressure, cuff size regular Cy gustavokenroy Banerjee blood pressure, diastolic 64 mm[Hg] Cy gunner Banerjee blood pressure, systolic 110 mm[Hg] Bhavna lul Banerjee oxygen saturation, oximetry 93 % Jodee Banerjee respiratory rate E&M 16 /min Jodee Banerjee pulse rate 91 /min Jodee Woodybel l weight E&M 205 [lb_av] Jodee Campbel l height E&M 71.9 [in_i] Jodee Campbel l Body Mass Index (Ratio) 28.56 kg/m2 Ben Quinteros MD blood pressure, diastolic 80 mm[Hg] Atul Silverioam blood pressure, systolic 128 mm[Hg] Lex Silverioam oxygen saturation, oximetry 98 % Alex Mcdonald respiratory rate E&M 16 /min Alex Mcdonald pulse rate 94 /min [place] Mcdonald weight E&M 210 [lb_av] Alex Mcdonald height E&M 71.9 [in_i] [place] Body Mass Index (Ratio) 28.29 kg/m2 Ben Quinteros MD blood pressure, cuff size regular Ke rri Carlitos blood pressure, diastolic 75 mm[Hg] Ke rri Carlitos blood pressure, systolic 108 mm[Hg] Meliton shilpa Urbina oxygen saturation, oximetry 97 % Leslishilpa Urbina pulse rate 95 /min Lesli Owen [facility] respiratory rate E&M 16 /min Lesli wild weight E&M 208 [lb_av] Lesli Brayden [facility] height E&M 71.9 [in_i] Lesli Owen [facility] blood pressure, resting No Zheng gutierrez [facility] Body Mass Index (Ratio) 28.31 kg/m2 Zheng gutierrez Miguel blood pressure, diastolic 82 mm[Hg] Lynne Rios blood pressure, systolic 119 mm[Hg] Berna Rios oxygen saturation, oximetry 93 % Yuni Rios respiratory rate E&M 20 /min Amol Rios pulse rate 91 /min Yuni houston weight E&M 208.2 [lb_av] Yuni jain height E&M 71.9 [in_i] Yuni houston blood pressure, diastolic 70 mm[Hg] Lynne Rios blood pressure, systolic 102 mm[Hg] Berna Rios pulse rate 93 /min Yuni h[place] oxygen saturation, oximetry 93 % Yuni Rios respiratory rate E&M 16 /min Amol Rios Body Mass Index (Ratio) 27.96 kg/m2 Radha Rios weight E&M 205.6 [lb_av] Yuni jain blood pressure, diastolic 65 mm[Hg] Lynne Rios blood pressure, systolic 111 mm[Hg] Berna Rios pulse rate 108 /min Yuni houston oxygen saturation, oximetry 96 % Yuni Rios respiratory rate E&M 16 /min Amol Rios Body Mass Index (Ratio) 28.29 kg/m2 Radha Rios weight E&M 208 [lb_av] Yuni Dubon [place] blood pressure, diastolic 75 mm[Hg] Ms alexia Davey blood pressure, systolic 118 mm[Hg] Romelia guillen Davey pulse rate 102 /min Noemy Davey oxygen saturation, oximetry 98 % Noemy Davey respiratory rate E&M 15 /min Noemy Davey Body Mass Index (Ratio) 27.88 kg/m2 Zarina guerrero Davey weight E&M 205 [lb_av] Noemy Davey blood pressure, diastolic 85 mm[Hg] Lynne Rios blood pressure, systolic 118 mm[Hg] Berna Rios pulse rate 80 /min Yuni houston oxygen saturation, oximetry 98 % Yuni Rios respiratory rate E&M 16 /min Amol Rios Body Mass Index (Ratio) 27.41 kg/m2 Radha Rios weight E&M 201.6 [lb_av] Yuni jain blood pressure, diastolic 77 mm[Hg] Rodrigo jama Carlitos blood pressure, systolic 127 mm[Hg] Meliton massey Josekirkandreinaevelynmarko pulse rate 81 /min Lesli Owen lder oxygen saturation, oximetry 97 % Lesli Garciaryanevelynmjblanca respiratory rate E&M 16 /min Lesli Espinoza junito Body Mass Index (Ratio) 27.61 kg/m2 Senthil vargas Carlitos weight E&M 203 [lb_av] Lesli Owen lder blood pressure, diastolic 83 mm[Hg] Me alexia Davey blood pressure, systolic 126 mm[Hg] Romelia wilmer Davey pulse rate 90 /min Noemy Davey oxygen saturation, oximetry 96 % Noemy Davey respiratory rate E&M 15 /min Noemy Davey Body Mass Index (Ratio) 28.29 kg/m2 Zarina ssa Davey weight E&M 208 [lb_av] Noemy Davey blood pressure, diastolic 75 mm[Hg] Me alexia blood pressure, systolic 111 mm[Hg] Romelia wilmer Davey pulse rate 88 /min Noemy Davey oxygen saturation, oximetry 96 % Noemy Davey respiratory rate E&M 15 /min Noemy Davey Body Mass Index (Ratio) 28.29 kg/m2 Zarina ssa Davey weight E&M 208 [lb_av] Nomey Davey blood pressure, diastolic 79 mm[Hg] Me alexia Davey blood pressure, systolic 118 mm[Hg] Romelia wilmer Davey pulse rate 70 /min Noemy Davey oxygen saturation, oximetry 98 % Noemy Davey respiratory rate E&M 15 /min Noemy Davey Body Mass Index (Ratio) 28.42 kg/m2 Zarina Davey weight E&M 209 [lb_av] Noemy Davey pulse rate 90 /min Sravani Poe oxygen saturation, oximetry 96 % Sravani Poe Body Mass Index (Ratio) 28.15 kg/m2 Ashl ee Deepika blood pressure, diastolic 60 mm[Hg] As hlee kane blood pressure, systolic 100 mm[Hg] Kyrie martin Poe respiratory rate E&M 18 /min Sravani harriett weight E&M 207 [lb_av] Sravani [facility] Body Mass Index (Ratio) 28.56 kg/m2 Ndiaye i Carlitos blood pressure, diastolic 60 mm[Hg] Ke rri Carlitos blood pressure, systolic 146 mm[Hg] Meliton Urbina pulse rate 105 /min Lesli Brayden lder oxygen saturation, oximetry 96 % Lesli Urbina respiratory rate E&M 16 /min Lesli wild weight E&M 210 [lb_av] Lesli Owen lder blood pressure, diastolic 86 mm[Hg] Cody Hammond RN blood pressure, systolic 110 mm[Hg] Wing Hammond RN pulse rate 95 /min Wing Hammond RN oxygen saturation, oximetry 98 % Wing Hammond RN respiratory rate E&M 16 /min Wing mckeon RN Body Mass Index (Ratio) 30.17 kg/m2 Wing Hammond RN weight E&M 221 [lb_av] Wing Hammond RN blood pressure, diastolic 82 mm[Hg] Cody Hammond RN blood pressure, systolic 118 mm[Hg] Wing Hammond RN pulse rate 93 /min Wing Hammond RN oxygen saturation, oximetry 98 % Wing Hammond RN respiratory rate E&M 16 /min Wing mckeon RN weight E&M 219 [lb_av] Wing Hammond RN blood pressure, diastolic, left arm 86 mm [Hg] Wing Hammond RN blood pressure, systolic, left arm 122 mm [Hg] Wing Hammond RN blood pressure, diastolic, right arm 83 m m[Hg] Wing Hammond RN blood pressure, systolic, right arm 121 m m[Hg] Wing Hammond RN blood pressure, diastolic 86 mm[Hg] Cody almeida Hammond RN blood pressure, systolic 122 mm[Hg] Wing Pooles RN pulse rate 89 /min Wing Hammond RN oxygen saturation, oximetry 96 % Wing Hammond RN respiratory rate E&M 16 /min Wing mckeon RN Body Mass Index (Ratio) 33.99 kg/m2 Wing Hammond RN weight E&M 249 [lb_av] Wing Hammond RN Body Mass Index (Ratio) 29.35 kg/m2 Senthil Urbina blood pressure, diastolic 64 mm[Hg] Rodrigo Urbina blood pressure, systolic 98 mm[Hg] Meliton Urbina pulse rate 96 /min Lesli herreraer oxygen saturation, oximetry 96 % Lesli Urbina respiratory rate E&M 17 /min Lesli wild weight E&M 215 [lb_av] Lesli herreraer blood pressure, diastolic 83 mm[Hg] Cody almeida Hammond RN blood pressure, systolic 129 mm[Hg] Wing Hammond RN pulse rate 85 /min Wing Hammond RN oxygen saturation, oximetry 95 % Wing Hammond RN respiratory rate E&M 16 /min Wing mckeon RN weight E&M 219 [lb_av] Wing Hammond RN height E&M 71.9 [in_i] Wing Hammond RN ALLERGIES Allergy Name Onset Date Reaction Criticality Status CODEINE Low Criticality active RESULTS Date Observation Value Provider Reference Range Interpretation Location international normalized ratio (INR) 2.3 Betty Cervantes Normal coagulation managed by Betty Cervantes RN Betty Cervantes 10/11 coagulation managed by Cony Chatman RN 10/11 international normalized ratio (INR) 3.0 Cony Chatman RN Normal 10/11 prothrombin time (patient) 36.2 s Cony Chatman RN 09/12 coagulation managed by Cony Chatman RN 09/12 international normalized ratio (INR) 2.5 Cony Chatman RN Normal 09/12 prothrombin time (patient) 30.2 s Cony Chatman RN 08/16 coagulation managed by Wing Hammond RN 08/16 international normalized ratio (INR) 3.3 Wing Hammond RN Normal 08/16 prothrombin time (patient) 39.9 s Wing Hammond RN 07/19 coagulation managed by Wnig Hammond RN 07/19 international normalized ratio (INR) 3.5 Wing Hammond RN Normal 07/19 prothrombin time (patient) 41.6 s Wing Hammond RN 06/21 coagulation managed by Wing Hammond RN 06/21 international normalized ratio (INR) 2.4 Wing Hammond RN Normal 06/21 prothrombin time (patient) 29.4 s Wing Hammond RN 06/03 international normalized ratio (INR) 2.3 Betty Cervantes Normal 06/03 coagulation managed by Betty Cervantes 05/17 coagulation managed by Wing Hammond RN 05/17 international normalized ratio (INR) 2.0 Wing Hammond RN Normal 05/17 prothrombin time (patient) 24.3 s Wing Hammond RN 05/10 prothrombin time (patient) 20.4 s Cony Chatman RN 05/10 coagulation managed by Cony Chatman RN Cony Chatman RN 05/10 international normalized ratio (INR) 1.7 Cony Chatman RN Normal 05/03 coagulation managed by Wing Hammond RN 05/03 international normalized ratio (INR) 4.6 Wing Hammond RN Normal 05/03 prothrombin time (patient) 55.8 s Wing Hammond RN 04/12 coagulation managed by Cony Chatman RN Cony Chatman RN 04/12 international normalized ratio (INR) 2.7 Cony Chatman RN Normal 04/12 prothrombin time (patient) 28.7 s Cony Chatman RN 04/05 coagulation managed by Cony Chatman RN Cony Chatman RN 04/05 international normalized ratio (INR) 2.4 Cony Chatman RN Normal 03/08 coagulation managed by Wing Hammond RN 03/08 international normalized ratio (INR) 2.0 Wing Hammond RN Normal 03/08 prothrombin time (patient) 23.5 s Wing Hammond RN 02/05 coagulation managed by Wing Hammond RN Wing Pooles RN 02/05 international normalized ratio (INR) 2.3 Wing Hammond RN Normal 02/05 prothrombin time (patient) 28.1 s Wing Hammond RN 01/18 coagulation managed by Wing Pooles RN 01/18 international normalized ratio (INR) 2.9 Wing Hammond RN Normal 01/18 prothrombin time (patient) 34.4 s Wing Hammond RN 01/11 coagulation managed by Wing Pooles RN 01/11 international normalized ratio (INR) 3.1 Wing Hammond RN Normal 01/11 prothrombin time (patient) 37.5 s Wing Hammond RN 12/14 coagulation managed by Cony Chatman RN 12/14 international normalized ratio (INR) 2.2 Cony Chatman RN Normal 12/14 prothrombin time (patient) 26.2 s Cony Chatman RN 11/30 coagulation managed by Wing Hammond RN 11/30 international normalized ratio (INR) 2.4 Wing Hammond RN Normal 11/30 prothrombin time (patient) 29.2 s Wing Hammond RN 11/16 coagulation managed by Wing Hammond RN 10/19 coagulation managed by Cony Chatman RN 10/19 international normalized ratio (INR) 2.8 Cony Chatman RN Normal 10/19 prothrombin time (patient) 34.1 s Cony Chatman RN 09/21 coagulation managed by Wing Hammond RN 09/21 international normalized ratio (INR) 2.1 Wing Hammond RN Normal 09/21 prothrombin time (patient) 24.9 s Wing Pooles RN 09/14 coagulation managed by Wing Hammond RN 09/14 international normalized ratio (INR) 3.1 Wing Stephany JENNINGS Normal 09/14 prothrombin time (patient) 36.7 s Wing Pooles RN 08/31 coagulation managed by Wing Stephany JENNINGS Wing Hammond RN 08/31 prothrombin time (patient) 35.7 s Wing Hammond RN 08/31 international normalized ratio (INR) 3.0 Wing Hammond RN Normal 08/17 coagulation managed by Cony Chatman RN 08/17 international normalized ratio (INR) 2.1 Cony Chatman RN Normal 08/08 coagulation managed by Cony Chatman RN 08/08 international normalized ratio (INR) 1.2 Cony Chatman RN Normal 08/08 prothrombin time (patient) 14.1 s Cony Chatman RN 07/11 coagulation managed by Cony Chatman RN 07/11 international normalized ratio (INR) 2.4 Cony Chatman RN Normal 07/11 prothrombin time (patient) 29.3 s Cony Chatman RN 06/06 PTT patient 35 s [facility] 23-32 High [facility] [place] [id number] [place] [id number] [facility] international normalized ratio (INR) 2.6 Aura Candelario Normal 06/01 prothrombin time (patient) 31.5 s Aura Candelario 05/24 coagulation managed by Betty Cervantes 05/24 international normalized ratio (INR) 4.2 Betty Cervantes Normal 04/26 coagulation managed by Cony Chatman RN 04/26 international normalized ratio (INR) 2.6 Cony Chatman RN Normal 04/26 prothrombin time (patient) 30.9 s Cony Chatman RN 04/11 coagulation managed by Cony Chatman RN 04/11 international normalized ratio (INR) 2.6 Cony Chatman RN Normal 04/11 prothrombin time (patient) 31.5 s Cony Chatman RN 04/04 coagulation managed by Cony Chatman RN 04/04 international normalized ratio (INR) 2.7 Cony Chatman RN Normal 04/04 prothrombin time (patient) 32.1 s Cony Chatman RN 03/21 coagulation managed by Cony Chatman RN 03/21 international normalized ratio (INR) 3.1 Cony Chatman RN Normal 03/21 prothrombin time (patient) 37.5 s Cony Chatman RN 03/07 coagulation managed by Cony Chatman RN 03/07 international normalized ratio (INR) 3.1 Cony Chatman RN Normal 03/07 prothrombin time (patient) 36.6 s Cony Chatman RN 03/02 coagulation managed by Cony Chatman RN 03/02 prothrombin time (patient) 26.7 s Cony Chatman RN 03/02 international normalized ratio (INR) 2.2 Cony Chatman RN Normal 02/23 coagulation managed by Betty Cervantes 02/23 international normalized ratio (INR) 2.0 Betty Cervantes Low 02/23 prothrombin time (patient) 23.8 s Lesli Urbina 12/21 coagulation managed by Wing Hammond RN 12/21 international normalized ratio (INR) 1.6 Dipti Trevor Normal 12/21 prothrombin time (patient) 19.1 s Dipti Trevor 12/07 prothrombin time (patient) 23.7 s [facility] 9.0-11.5 High 12/07 international normalized ratio (INR) 2.5 [facility] High 12/07 PTT patient 33 s [facility] 23-32 High 12/07 basophils as percent of blood leukocytes 0.7 % [facility] Normal 12/07 eosinophils as percent of blood leukocytes 1.1 % [facility] Normal 12/07 monocyte count, blood 8.6 % [facility] Normal 12/07 lymphocyte count, blood 25.9 % [facility] Normal 12/07 neutrophils as percent of blood leukocytes 63.7 % [facility] Normal 12/07 basophils, absolute, manual 43 cells/mcL [facility] 0-200 Normal 12/07 eosinophils, absolute, manual 67 cells/mcL [facility] 15-500 Normal 12/07 monocytes, absolute, manual 525 cells/mcL [facility] 200-950 Normal 12/07 lymphocytes, absolute 1580 CELLS/UL [facility] 850-3900 Normal 12/07 Absolute Neutrophil count 3886 cells/mcL [facility] 7486-0387 Normal 12/07 mean platelet volume 9.9 fL [facility] 7.5-12.5 Normal 12/07 platelet count 161 THOUSAND/UL [facility] 140-400 Normal 12/07 red blood cell distribution width 14.7 % [facility] 11.0-15.0 Normal 12/07 mean corpuscular hemoglobin concentration, RBC 33.4 G/DL [facility] 32.0-36.0 Normal 12/07 mean corpuscular hemoglobin, RBC 30.1 pg [facility] 27.0-33.0 Normal 12/07 mean corpuscular volume, RBC 90.0 fL [facility] 80.0-100.0 Normal 12/07 hematocrit, blood 38.9 % [facility] 38.5-50.0 Normal 12/07 hemoglobin electrophoresis, blood 13.0 [facility] 13.2-17.1 Low 12/07 erythrocyte (RBC) count 4.32 MILLION/UL [facility] 4.20-5.80 Normal 12/07 leukocyte (white blood cells) count, blood 6.1 THOUSAND/UL [facility] 3.8-10.8 Normal 12/07 alanine aminotransferase (SGPT), serum 17 1/L [facility] 9-46 Normal 12/07 aspartate aminotransferase (SGOT), serum 19 1/L [facility] 10-35 Normal 12/07 alkaline phosphatase, serum 67 1/L [facility] 35-144 Normal 12/07 bilirubin, serum, total 1.0 mg/dL [facility] 0.2-1.2 Normal 12/07 albumin/globulin ratio, serum 2.0 (calc) [facility] 1.0-2.5 Normal 12/07 globulins, serum, total 2.2 G/DL (CALC) [facility] 1.9-3.7 Normal 12/07 albumin, serum 4.3 g/dL [facility] 3.6-5.1 Normal 12/07 protein, total, serum 6.5 g/dL [facility] 6.1-8.1 Normal 12/07 calcium, serum 9.5 mg/dL [facility] 8.6-10.3 Normal 12/07 carbon dioxide, venous blood 31 mmol/L [facility] 20-32 Normal 12/07 chloride, serum 104 mmol/L [facility] 98-110 Normal 12/07 potassium, serum 4.5 mmol/L [facility] 3.5-5.3 Normal 12/07 sodium, serum 142 mmol/L [facility] 135-146 Normal 12/07 urea nitrogen/creatini ne ratio, serum 17 (calc) [facility] 6-22 Normal 12/07 Estimated Glomerular Filtration Rate (calc) 56 mL/min/{1.7 3_m2} [facility] > OR = 60 Low 12/07 creatinine, serum 1.34 mg/dL [facility] 0.70-1.11 High 12/07 urea nitrogen, blood 23 mg/dL [facility] 7-25 Normal 12/07 blood glucose, random 93 mg/dL [facility] 65-99 Normal 12/31 magnesium, serum 2.4 mg/dL [facility] 1.6-2.3 High 12/31 pro brain natriuretic peptide 1126 pg/mL [facility] 0-486 High 12/31 platelet count 177 X10E3/UL [facility] 253-460 7061/ 04/17 red blood cell distribution width 15.3 % [facility] 11.6-15.4 12/31 mean corpuscular hemoglobin concentration, RBC 33.8 G/DL [facility] 31.5-35.7 12/31 mean corpuscular hemoglobin, RBC 30.6 pg [facility] 26.6-33.0 12/31 mean corpuscular volume, RBC 91 fL [facility] 79-97 12/31 hematocrit, blood 39.9 % [facility] 37.5-51.0 12/31 hemoglobin, blood 13.5 g/dL [facility] 13.0-17.7 12/31 erythrocyte (RBC) count 4.41 X10E6/UL [facility] 4.14-5.80 12/31 leukocyte count, blood 7.0 X10E3/UL [facility] 3.4-10.8 12/31 alanine aminotransferase (SGPT), serum 18 1/L [facility] 0-44 12/31 aspartate aminotransferase (SGOT), serum 29 1/L [facility] 0-40 12/31 alkaline phosphatase, serum 91 1/L [facility] 39-117 12/31 bilirubin, serum, total 0.8 mg/dL [facility] 0.0-1.2 12/31 albumin/globulin ratio, serum 1.9 [facility] 1.2-2.2 12/31 globulin, serum 2.3 [facility] 1.5-4.5 12/31 albumin, serum 4.4 g/dL [facility] 3.6-4.6 12/31 protein, total, serum 6.7 g/dL [facility] 6.0-8.5 12/31 calcium, serum 9.2 mg/dL [facility] 8.6-10.2 12/31 carbon dioxide, venous blood 28 mmol/L [facility] 20-29 12/31 chloride, serum 104 mmol/L [facility] 96-106 12/31 potassium, serum 4.5 mmol/L [facility] 3.5-5.2 12/31 sodium, serum 142 mmol/L [facility] [phone]/ 04/17 urea nitrogen/creatini ne ratio, serum 17 [facility] 10-24 12/31 eGFR if 70 mL/min/{1.7 3_m2} [facility] >59 12/31 eGFR if not 61 mL/min/{1.7 3_m2} [facility] >59 12/31 creatinine, serum 1.10 mg/dL [facility] 0.76-1.27 12/31 urea nitrogen, blood 19 mg/dL [facility] 8-27 12/31 blood glucose, random 103 mg/dL [facility] 65-99 High 04/24 coagulation managed by Wing Hammond RN 04/24 international normalized ratio (INR) 3.4 [facility] Normal 04/24 prothrombin time (patient) 40.4 s [facility] 01/22 prothrombin time (patient) 17.3 s [facility] 9.0-11.5 High 01/22 international normalized ratio (INR) 1.7 [facility] High 01/22 basophils as percent of blood leukocytes 1.4 % [facility] Normal 01/22 eosinophils as percent of blood leukocytes 1.3 % [facility] Normal 01/22 monocyte count, blood 11.5 % [facility] Normal 01/22 lymphocyte count, blood 18.7 % [facility] Normal 01/22 neutrophils as percent of blood leukocytes 67.1 % [facility] Normal 01/22 basophils, absolute, manual 90 cells/mcL [facility] 0-200 Normal 01/22 eosinophils, absolute, manual 83 cells/mcL [facility] 15-500 Normal 01/22 monocytes, absolute, manual 736 cells/mcL [facility] 200-950 Normal 01/22 lymphocytes, absolute 1197 CELLS/UL [facility] 850-3900 Normal 01/22 Absolute Neutrophil count 4294 cells/mcL [facility] 9230-0077 Normal 01/22 mean platelet volume 9.7 fL [facility] 7.5-12.5 Normal 01/22 platelet count 167 THOUSAND/UL [facility] 140-400 Normal 01/22 red blood cell distribution width 15.2 % [facility] 11.0-15.0 High 01/22 mean corpuscular hemoglobin concentration, RBC 33.7 G/DL [facility] 32.0-36.0 Normal 01/22 mean corpuscular hemoglobin, RBC 29.8 pg [facility] 27.0-33.0 Normal 01/22 mean corpuscular volume, RBC 88.5 fL [facility] 80.0-100.0 Normal 01/22 hematocrit, blood 38.6 % [facility] 38.5-50.0 Normal 01/22 hemoglobin electrophoresis, blood 13.0 [facility] 13.2-17.1 Low 01/22 erythrocyte (RBC) count 4.36 MILLION/UL [facility] 4.20-5.80 Normal 01/22 leukocyte (white blood cells) count, blood 6.4 THOUSAND/UL [facility] 3.8-10.8 Normal 01/22 calcium, serum 9.1 mg/dL [facility] 8.6-10.3 Normal 01/22 carbon dioxide, venous blood 28 mmol/L [facility] 20-32 Normal 01/22 chloride, serum 104 mmol/L [facility] 98-110 Normal 01/22 potassium, serum 4.4 mmol/L [facility] 3.5-5.3 Normal 01/22 sodium, serum 139 mmol/L [facility] 135-146 Normal 01/22 urea nitrogen/creatini ne ratio, serum NOT APPLICABLE (calc) [facility] 6-22 01/22 Estimated Glomerular Filtration Rate (calc) 77 mL/min/{1.7 3_m2} [facility] > OR = 60 Normal 01/22 creatinine, serum 1.04 mg/dL [facility] 0.70-1.11 Normal 01/22 urea nitrogen, blood 20 mg/dL [facility] 7-25 Normal 01/22 blood glucose, random 96 mg/dL [facility] 65-99 Normal 01/22 cholesterol, non-HDL, total 218 MG/DL (CALC) [facility] <130 High 01/22 cholesterol/HDL ratio, serum, percent 7.8 (calc) [facility] <5.0 High 01/22 LDL cholesterol, serum * mg/dL (calc) [facility] 01/22 triglyceride, serum, fasting 439 mg/dL [facility] <150 High 01/22 HDL cholesterol, serum 32 mg/dL [facility] >40 Low 01/22 cholesterol, serum 250 mg/dL [facility] <200 High 06/28 international normalized ratio (INR) 2.0 [facility] 0.9-1.1 High 06/28 prothrombin time (patient) 20.9 s [facility] 9.0-11.5 High 06/28 thyroid stimulating hormone, serum 1.62 ?IU/ML [facility] 0.27-4.20 06/28 very low density lipoproteins 159.2 mg/dL [facility] 5.0-40.0 High 06/28 LDL/HDL (low-density lipoprotein/high- density lipoprotein) ratio 2 mg/dL [facility] 0-5 06/28 lipoprotein, beta, serum, point, quantitative, calculated 54 mg/dL [facility] 0-100 06/28 HDL cholesterol, serum 28 mg/dL [facility] 35-55 Low 06/28 cholesterol, serum 241 mg/dL [facility] 0-200 High 06/28 triglyceride, serum, fasting 796 mg/dL [facility] 0-150 High 06/28 Total LDL-cholesterol direct 72 mg/dL [facility] 0-100 06/28 Estimated Glomerular Filtration Rate (calc) 63 (?) [facility] >59 06/28 chloride, serum 103 mmol/L [facility] 98-107 06/28 potassium, serum 4.2 mmol/L [facility] 3.5-5.1 06/28 sodium, serum 144 mmol/L [facility] [phone]/ 10/13 creatinine, serum 1.2 mg/dL [facility] 0.7-1.2 06/28 carbon dioxide, venous blood 27 mmol/L [facility] 23-31 06/28 albumin, serum 4.7 g/dL [facility] 3.5-5.2 06/28 calcium, serum 9.5 mg/dL [facility] 8.6-10.2 06/28 aspartate aminotransferase (SGOT), serum 23 1/L [facility] 0-40 06/28 alkaline phosphatase, serum 73 1/L [facility] 40-130 06/28 alanine aminotransferase (SGPT), serum 14 1/L [facility] 0-41 06/28 protein, total, serum 6.9 g/dL [facility] 6.6-8.7 06/28 bilirubin, serum, total 0.7 mg/dL [facility] 0.0-1.2 06/28 urea nitrogen, blood 26 mg/dL [facility] 8-23 High 06/28 blood glucose, random 97 mg/dL [facility] 74-99 06/28 platelet count 170 THOUSAND/UL [facility] [phone]/ 10/13 Absolute Basophils 0.1 CELLS/UL [facility] 0.0-0.2 06/28 Absolute Monocytes 0.6 CELLS/UL [facility] 0.2-1.0 06/28 Absolute Lymphocytes 1.40 CELLS/UL [facility] 0.85-3.90 06/28 Absolute Neutrophils 4.2 CELLS/UL [facility] 1.5-7.8 06/28 mean corpuscular volume, RBC 98 fL [facility] 75-100 06/28 mean corpuscular hemoglobin concentration, RBC 32 G/DL [facility] 31-38 06/28 mean corpuscular hemoglobin, RBC 31 pg [facility] 25-35 06/28 hematocrit, blood 49 % [facility] 35-55 06/28 hemoglobin, blood 15.5 g/dL [facility] 11.5-16.5 06/28 erythrocyte count, whole blood 5.0 MILLION/UL [facility] 3.5-5.5 02/21 magnesium, serum 2.2 mg/dL [facility] 1.6-2.3 02/21 prothrombin time (patient) 26.4 s [facility] 9.1-12.0 High 02/21 international normalized ratio (INR) 2.6 [facility] 0.8-1.2 High 02/21 calcium, serum 9.0 mg/dL [facility] 8.6-10.2 02/21 carbon dioxide, venous blood 26 mmol/L [facility] 18-29 02/21 chloride, serum 100 mmol/L [facility] 96-106 02/21 potassium, serum 4.4 mmol/L [facility] 3.5-5.2 02/21 sodium, serum 145 mmol/L [facility] 134-144 High 02/21 urea nitrogen/creatini ne ratio, serum 13 [facility] 10-24 02/21 eGFR if not 58 mL/min/{1.7 3_m2} [facility] >59 Low 02/21 creatinine, serum 1.18 mg/dL [facility] 0.76-1.27 02/21 urea nitrogen, blood 15 mg/dL [facility] 8-27 02/21 blood glucose, random 128 mg/dL [facility] 65-99 High 11/22 coagulation managed by Wing Hammond RN 11/22 international normalized ratio (INR) 1.6 Noemy Davey Normal 11/22 prothrombin time (patient) 19.7 s Noemy Rodriguezann 11/11 coagulation managed by Wing Hammond RN 11/11 international normalized ratio (INR) 2.0 Yuni Rios Normal 11/11 prothrombin time (patient) 23.9 s Yunijuan pablo Rios 11/02 coagulation managed by Wing Hammond RN 11/02 international normalized ratio (INR) 2.0 Lesli Urbina Normal 11/02 prothrombin time (patient) 24.1 s Lesli Urbina 10/28 coagulation managed by Wing Hammond RN 10/28 international normalized ratio (INR) 2.1 Wing Hammond RN Normal 10/28 prothrombin time (patient) 25.0 s Wing Hammond RN 10/21 coagulation managed by Wing Hammond RN 10/21 international normalized ratio (INR) 2.2 Wing Hammond RN Normal 10/21 prothrombin time (patient) 26.1 s Wing Hammond RN 10/19 coagulation managed by Wing Hammond RN 10/19 international normalized ratio (INR) 2.0 Lesli Urbina Normal 10/19 prothrombin time (patient) 23.7 s Lesli Cummingselder 10/18 red blood cell distribution width, size density 58.9 fL [facility] - 10/18 immature granulocytes, percentage of total cells, blood 0.6 % [facility] - 10/18 nucleated red blood cells as percent of blood leukocytes 0.0 % [facility] - 10/18 red blood cell (erythrocyte) count, per high power field 0.0 10*3/UL [facility] - 10/18 eosinophils as percent of blood leukocytes 0.7 % [facility] - 10/18 neutrophils as percent of blood leukocytes 72.2 % [facility] - 10/18 Absolute Neutrophils 6.1 CELLS/UL [facility] 1.5 - 7.8 10/18 basophils as percent of blood leukocytes 0.9 % [facility] - 10/18 Absolute Basophils 0.1 CELLS/UL [facility] 0.0 - 0.2 10/18 monocytes as percent of blood leukocytes 10.2 % [facility] - 10/18 Absolute Monocytes 0.9 CELLS/UL [facility] 0.2 - 1.0 10/18 lymphocytes as percent of blood leukocytes 15.4 % [facility] - 10/18 Absolute Lymphocytes 1.3 CELLS/UL [facility] 0.9 - 3.9 10/18 mean platelet volume 10.3 (?) [facility] - 10/18 platelet count 178.0 THOUSAND/UL [facility] 100.0 - 400.0 10/18 mean corpuscular hemoglobin concentration, RBC 30.4 G/DL [facility] 31.0 - 38.0 Low 10/18 mean corpuscular hemoglobin, RBC 30.1 pg [facility] 25.0 - 35.0 10/18 mean corpuscular volume, RBC 99.0 fL [facility] 75.0 - 100.0 10/18 hematocrit, blood 47.7 % [facility] 35.0 - 55.0 10/18 hemoglobin, blood 14.5 g/dL [facility] 11.5 - 16.5 10/18 erythrocyte count, whole blood 4.8 MILLION/UL [facility] 3.5 - 5.5 10/18 activated partial thromboplastin time 32.7 SECONDS [facility] 23.0 - 33.0 10/18 prothrombin time (patient) 17.7 s [facility] 9.0 - 11.5 High 10/18 international normalized ratio (INR) 1.7 [facility] 0.9 - 1.1 High 10/18 urea nitrogen/creatini ne ratio, serum 16.1 [facility] - 10/18 Estimated Glomerular Filtration Rate (calc) 38.9 (?) [facility] 59.0 - Low 10/18 chloride, serum 98.5 mmol/L [facility] 98.0 - 107.0 10/18 potassium, serum 4.1 mmol/L [facility] 3.5 - 5.1 10/18 sodium, serum 141.0 mmol/L [facility] 136.0 - 145.0 10/18 creatinine, serum 1.8 mg/dL [facility] 0.7 - 1.2 High 10/18 carbon dioxide, venous blood 29.0 mmol/L [facility] 23.0 - 31.0 10/18 calcium, serum 9.0 mg/dL [facility] 8.6 - 10.2 10/18 urea nitrogen, blood 29.0 mg/dL [facility] 8.0 - 23.0 High 10/18 blood glucose, random 88.0 mg/dL [facility] 74.0 - 99.0 09/30 coagulation managed by Wing Hammond RN 09/30 international normalized ratio (INR) 1.8 Noemy Davey Normal 09/30 prothrombin time (patient) 21.6 s Noemy Davey 09/06 coagulation managed by Wing Hammond RN 09/06 international normalized ratio (INR) 2.7 Yuni Rios Normal 09/06 prothrombin time (patient) 32.6 s Yuni Doughertyenson 09/01 coagulation managed by Wing Hammond RN 09/01 international normalized ratio (INR) 2.1 Noemy Rodriguezann Normal 09/01 prothrombin time (patient) 25.7 s Noemy Davey 08/30 coagulation managed by Wing Hammond RN 08/30 international normalized ratio (INR) 1.6 Lesli Cummingsmjblanca Normal 08/30 prothrombin time (patient) 19.6 s Lesli Urbina 08/27 magnesium, serum 2.2 mg/dL [facility] 1.6 - 2.4 08/27 urea nitrogen/creatini ne ratio, serum 19.2 [facility] - 08/27 Estimated Glomerular Filtration Rate (calc) 62.1 (?) [facility] 59.0 - 08/27 chloride, serum 100.8 mmol/L [facility] 98.0 - 107.0 08/27 potassium, serum 4.1 mmol/L [facility] 3.5 - 5.1 08/27 sodium, serum 143.0 mmol/L [facility] 136.0 - 145.0 08/27 creatinine, serum 1.2 mg/dL [facility] 0.7 - 1.2 08/27 carbon dioxide, venous blood 27.0 mmol/L [facility] 23.0 - 31.0 08/27 calcium, serum 9.4 mg/dL [facility] 8.6 - 10.2 08/27 urea nitrogen, blood 23.0 mg/dL [facility] 8.0 - 23.0 08/27 blood glucose, random 90.0 mg/dL [facility] 74.0 - 99.0 08/27 prothrombin time (patient) 17.9 s [facility] 9.0 - 11.5 High 08/27 international normalized ratio (INR) 1.7 [facility] 0.9 - 1.1 High 12/05 coagulation managed by Wing Hammond RN 12/05 prothrombin time (patient) 22.9 s Wing Hammond RN 12/05 international normalized ratio (INR) 2.3 Wing Hammond RN Normal 11/28 coagulation managed by Wing Hammond RN 11/28 prothrombin time (patient) 15.6 s Ami Bautista 11/28 international normalized ratio (INR) 1.6 Ami Bautista Normal 11/24 coagulation managed by Radha Puri RN 11/24 prothrombin time (patient) 36.4 s Radha Puri RN 11/24 international normalized ratio (INR) 3.40 Radha Puri RN Normal 11/21 prothrombin time (patient) 21.6 s Lesli Urbina 11/21 international normalized ratio (INR) 2.2 Lesli Urbina Normal 11/14 coagulation managed by Wing Hammond RN 11/14 prothrombin time (patient) 24.2 s Lesli Urbina 11/14 international normalized ratio (INR) 2.4 Lesli Urbina Normal 11/03 creatinine, serum 1.51 mg/dL Isamar Lan HISTORY OF MEDICATION USE Medication Status Instructions Dates Provider Indications Com ments Entresto 24-26 mg tablet active TAKE ONE TABLET BY MOUTH TWICE DAILY. DECREASE DIGOXIN TO 4 TIMES WEEKLY 12/15 Radha Rushing clindamycin HCl 150 mg capsule active Take 1 capsule by mouth twice a day 06/05 Garry Ahmedzai Breztri Aerosphere 160-9-4.8 mcg/actuation HFA aerosol inhaler active Eduar Mohanan cephalexin 500 mg capsule completed Take 1 capsule by mouth three times a day 05/14 - 06/05 Garry Ahmedzai furosemide 20 mg tablet active TAKE 1 TABLET BY MOUTH EVERY DAY Radha Rushing digoxin 125 mcg (0.125 mg) tablet completed - 06/05 Eduar Zhu gabapentin 300 mg capsule active Garry Claudiozai dofetilide 500 mcg capsule active Take 1 capsule by mouth twice a day TAKE 1 CAPSULE BY MOUTH TWICE DAILY 04/05 Cony Chatman RN warfarin 5 mg tablet completed Take 1 tablet by mouth every evening EXCEPT on Mon, Wed, Fri take 1 & 1/2 tabs (7.5 mg) 04/05 - 06/05 Eduar Marko dofetilide 500 mcg capsule completed TAKE 1 CAPSULE BY MOUTH TWICE DAILY 03/07 - 04/05 Cony Chatman RN Entresto 24-26 mg tablet completed Take 1 tablet by mouth twice a day one tab by mouth twice daily. DECREASE lanoxin to 4 times weekly. 01/31 - 12/15 Radha Rushing atorvastatin 20 mg tablet active TAKE 1 TABLET BY MOUTH EVERY DAY 01/16 Radha Rushing tramadol 50 mg tablet active Take 1 tablet by mouth twice a day as needed for pain TAKE 1 TABLET BY MOUTH TWICE A DAY NEEDED, do not sell,share or abuse 12/14 Hilda Quinteros MD Anemia dofetilide 500 mcg capsule completed TAKE 1 CAPSULE BY MOUTH TWICE A DAY 09/26 - 03/07 Cony Chatman RN tramadol 50 mg tablet completed Take 1 tablet by mouth twice a day as needed for pain TAKE 1 TABLET BY MOUTH TWICE A DAY NEEDED 11/12 - 12/14 Hilda Quinteros MD Anemia warfarin 5 mg tablet completed Take 1 1/2 tablet by mouth every evening Take one and a half tabs by mouth every evening. EXCEPT on Mon, Wed and Fri take 1 tab 10/08 - 04/05 Cony Chatman RN trazodone 50 mg tablet completed Take 1 tablet by mouth at bedtime 06/01 - 06/05 Eduardory Llanosjuan pablo tramadol 50 mg tablet completed Take 1 tablet by mouth single dose as needed for pain 06/01 - 11/12 Hilda Quinteros MD warfarin 5 mg tablet completed Take 1 1/2 tablet by mouth every evening except on Mon&Fri take 1 tab (5MG) - 10/08 Cony Chatman RN atorvastatin 20 mg tablet completed Take 1 tablet by mouth once a day 01/29 - 01/[address] [facility] at[facility] 20 mg tablet completed Take 1 tablet by mouth at bedtime 01/24 - 03/02 Saray Salazra clindamycin HCl 150 mg capsule completed Take 1 capsule by mouth three times a day 12/14 - 12/19 Hilda Quinteros MD Verquvo 2.5 mg tablet completed 1 tablet by mouth once a day 03/31 - 10/06 Saray Salazar Entresto 24-26 mg tablet completed one tab by mouth twice daily. DECREASE lanoxin to 4 times weekly. 12/30 - 01/31 Mely Medel Levo-T 75 mcg tablet active once a day 12/30 Lesli Urbina Anoro Ellipta 62.5-25 mcg/actuation blister with device completed Take as directed - 06/05 Eduar Zhu gabapentin 100 mg capsule active Take 1 once a day Lesli Urbina B COMPLETE ORAL TABLET active Take 1 once a day Lesli Urbina LEVOFLOXACIN 500 MG ORAL TABLET completed one tablet daily for 14 days, aware pt is taking coumadin and atorvastatin 10/23 - 04/03 Lesli Urbina TYLENOL WITH CODEINE #3 300-30 MG ORAL TABLET completed as needed - 04/03 Lesli Urbina ropinirole 0.25 mg tablet active 1 tablet twice a day Yuni Rios atorvastatin 20 mg tablet completed 1 tablet once a day 01/22 - 01/24 Hilda Quinteros MD potassium chloride 10 mEq tablet extended release active Take 1 tablet by mouth once a day Lesli Urbina #90, 90 days supply, Prescribed by GINI VARGHESE, Filled 10/13/2018 tramadol 50 mg tablet completed Take 1 tablet by mouth twice a day - 01/13 Hilda Quinteros MD #60, 30 days supply, Prescribed by Rainer VARGHESE, Filled 11/19/2018 ACETAMINOPHEN-CO DEINE 300-15 MG ORAL TABLET completed TK 1 T PO BID PRN P - 04/03 Lesli Urbina #60, 30 days supply, Prescribed by GINI VARGHESE, Filled 11/20/2018 tamsulosin 0.4 mg capsule active Take 1 capsule by mouth every night Lesli Urbina #90, 90 days supply, Prescribed by DARIUS MARTINEZ, Filled 12/18/2018 finasteride 5 mg tablet active Take 1 tablet by mouth once a day Lesli Urbina #90, 90 days supply, Prescribed by DARIUS MARTINEZ, Filled 12/18/2018 FENOFIBRATE MICRONIZED 130 MG ORAL CAPSULE completed Take 1 tab daily - 04/03 Yuni Rios FENOFIBRATE 120 MG ORAL TABLET completed Take 1 tab by mouth once daily - Karime Coffman RN d/t insurance coverage VENTOLIN HFA 108 (90 BASE) MCG/ACT INHALATION AEROSOL SOLUTION completed One puff twice a day prn 02/01 - 04/03 Lesli Urbina FIBERCON 625 MG ORAL TABLET completed One daily. 02/01 - Jodee Chriss Do not take with other medications . GABAPENTIN 100 MG ORAL CAPSULE completed ONE TAB. DAILY - Jodee Banerjee LISINOPRIL 5 MG ORAL TABLET completed ONE TAB. DAILY - 04/03 Lesli Urbina Nitrostat 0.4 mg tablet, sublingual completed 1 tablet under tongue every two hours as needed 12/08 - 06/05 Eduar Zhu COUMADIN 7.5 MG ORAL TABLET completed One tablet every other day, alternate with 5mg tablets 10/21 - 04/03 Lesli Urbina CYCLOBENZAPRINE HCL 10 MG ORAL TABLET completed One tablet at bedtime as needed for muscle spasms 12/08 - 04/03 Yuni Rios LEVAQUIN 500 MG ORAL TABLET completed ONE TAB. DAILY FOR TEN DAYS 10/28 - 04/03 Yuni Rios CARBIDOPA-LEVODO PA 10-100 MG ORAL TABLET completed 3 times daily - 04/03 Lesli Urbina SPIRONOLACTONE 25 MG ORAL TABLET completed take one pill a day 10/21 - 10/27 Noemy Davey COUMADIN 5 MG ORAL TABLET completed Take 1 tablet every other day 10/21 - 03/01 Hilda Quinteros MD magnesium oxide 400 mg (241.3 mg magnesium) tablet active 2 tablet twice a day 10/30 Lesli Urbina 1600mg twice a day. LISINOPRIL 2.5 MG ORAL TABLET completed ONE TAB. DAILY 10/30 - Noemy Davey CARDIOMYOPATHY ASPIRIN 81 MG ORAL TABLET completed ONE TAB. DAILY - 04/03 Lesli Urbina dofetilide 500 mcg capsule completed Take 1 capsule by mouth twice a day 04/11 - 09/26 Cony Chatman RN MAGNESIUM OXIDE 400 MG ORAL TABLET completed take one pill twice a day 11/21 - 04/03 Lesli Urbina SPIRONOLACTONE 25 MG ORAL TABLET completed take one pill a day 11/21 - 05/01 Wing Hammond RN DEXILANT 60 MG ORAL CAPSULE DELAYED RELEASE completed take one pill twice a day 11/21 - 05/01 Wing Hammond RN metoprolol succinate 25 mg tablet extended release 24 hr completed 0.25 once a day 11/05 - 10/06 Lesli Urbina KLOR-CON M20 20 MEQ ORAL TABLET EXTENDED RELEASE completed 2 tablet by mouth daily - 10/30 Wing Hammond RN PACERONE 200 MG ORAL TABLET completed 1 tablet by mouth daily 10/10 - 12/26 Hilda Quinteros MD allopurinol 100 mg tablet active 1 tablet by mouth once a day 10/10 Lesli Urbina CARVEDILOL 3.125 MG ORAL TABLET completed 1 tablet by mouth twice daily 10/10 - 04/03 Lesli Urbina COUMADIN 5 MG ORAL TABLET completed daily 11/14 - 05/01 Wing Hammond RN LEVOTHROID 75 MCG TABS completed ONE TAB. DAILY - 04/03 Lesli Urbina DIOVAN 160 MG ORAL TABLET completed 1 tablet by mouth daily 10/10 - 12/26 Wing Hammond RN ASPIRIN 81 MG ORAL TABLET completed 1 tablet by mouth daily 10/10 - 05/01 Wing Hammond RN Lanoxin 125 mcg (0.125 mg) tablet completed 1 tablet by mouth four times a day 10/10 - 05/03 Garry Frost SIMVASTATIN 20 MG ORAL TABLET completed ONE TAB. DAILY - 04/03 Sravani Poe Lasix 20 mg tablet completed Take 1 tablet by mouth once a day 03/31 - [facility] SOCIAL HISTORY Date Observation Value Provider drug use none Garry mehnaz alcohol use no Garryramiro Frostsam passive cigarette sm pam exposure no Garryramiro Frostsam smoking, year quit 1975 [facility] number of years as a smoker 20 a Garryramiro Frostsam smoking history, tot al pack/year 7.5 Garry mehnazsam smoking history, tot al pack/day 1/2 Garry mehnaz cigarette use yes Garry mehnazsam smoking status Former smoker Garry Frost sam drug use none Garryramiro Frostsam alcohol use no Garryramiro Frostsam passive cigarette sm pam exposure no Garryramiro Frostsam smoking, year quit 1975 [facility] number of years as a smoker 20 a Garry Frostsam smoking history, tot al pack/year 7.5 Garryramiro Frostsam smoking history, tot al pack/day 1/2 Garryramiro Frostsam cigarette use yes Garryramiro Frostsam smoking status Former smoker Garry Frost i drug use none Garryramiro Frostsam alcohol use no Garryramiro Frostsam passive cigarette sm pam exposure no Garryramiro Frostsam smoking, year quit 1975 [facility] number of years as a smoker 20 a Garryramiro Frostsam smoking history, tot al pack/year 7.5 Garry Moreno smoking history, tot al pack/day 1/2 Garry Moreno cigarette use yes Garry Moreno smoking status Former smoker Garry Frost i drug use none Garry Moreno alcohol use no Garry Moreno passive cigarette sm pam exposure no Garryramiro Moreno smoking, year quit 1975 Garry crockett number of years as a smoker 20 a Garry Moreno smoking history, tot al pack/year 7.5 Garryramiro Moreno smoking history, tot al pack/day 1/2 Garry Moreno cigarette use yes Garryramiro Moreno smoking status Former smoker Garry Frost i social history reviewed E&M revi ewed - no changes required aGrry Moreno social history reviewed E&M revi ewed - no changes required Garry Moreno social history E&M Marital Statu s: Brenton estevez with family/friends E thnicity: Smoking History: Noemi polo is a former smoker. Garryramiro Frostsam social history reviewed E&M revi ewed - no changes required Garryramiro Moreno caffeine use, averag e drinks per day 0 /d Shannon Chatman passive cigarette sm pam exposure no Shannon Chatman smoking, year quit 1975 Shannonkenroy clay number of years as a smoker 20 a Shannon Chatman smoking history, tot al pack/year 7.5 Shannon Chatman smoking history, tot al pack/day 1/2 Shannon Chatman cigarette use yes Shannon Chatman smoking status Former smoker Shannon bain social history E&M Marital Statu s: L herb with family/friends E thnicity: S moking History: Noemi polo is a former smoker. Garry Shanonjose eduardo social history reviewed E&M revi ewed - no changes required [facility] E&M Marital Statu s: L herb with family/friends E thnicity: Smoking History: Noemi polo is a former smoker. Garry veljose eduardo social history reviewed E&M revi ewed - no changes required [facility] caffeine use, averag e drinks per day 0 /d Aura Candelario passive cigarette sm pam exposure no Aura Candelario smoking, year quit 1975 Aura Candelario number of years as a smoker 20 a Aura Candelario smoking history, tot al pack/year 7.5 Aura [place] smoking history, tot al pack/day 1/2 Aura [place] cigarette use yes Aura Fleming ray smoking status Former smoker Aura [facility] social history E&M Marital Statu s: L herb with family/friends E thnicity: Smoking History: Noemi polo is a former smoker. [facility] reviewed E&M revi ewed - no changes required [facility] caffeine use, averag e drinks per day 0 /d Lesli Urbina passive cigarette sm pam exposure no Lesli Urbina smoking, year quit 1975 Lesli cabral number of years as a smoker 20 a Lesli Urbina smoking history, tot al pack/year 7.5 Lesli Urbina smoking history, tot al pack/day 1/2 Lesli Urbina cigarette use yes Lesli zhu smoking status Former smoker Lesli mirza social history E&M Marital Statu s: L herb with family/friends E thnicity: Smoking History: Noemi polo is a former smoker. Saray Salazar social history reviewed E&M revi ewed - no changes required Saray Salazar caffeine use, averag e drinks per day 0 /d Lesli Urbina passive cigarette sm pam exposure no Lesli Urbina smoking, year quit 1975 Lesli sigalanisha number of years as a smoker 20 a Lesli Urbina smoking history, tot al pack/year 7.5 Lesli Urbina smoking history, tot al pack/day 1/2 Lesli Urbina cigarette use yes Lesli zhu smoking status Former smoker Lesli mirza social history reviewed E&M revi ewed - no changes required Garry Moreno social history E&M Marital Statu s: L herb with family/friends E thnicity: Smoking History: Noemi polo is a former smoker. Saray Salazar social history reviewed E&M revi ewed - no changes required Saray Salazar caffeine use, averag e drinks per day 0 /d Lesli Urbina passive cigarette sm pam exposure no Lesli Urbina smoking, year quit 1975 Lesli lagosblanca number of years as a smoker 20 a Lesli Urbina smoking history, tot al pack/year 7.5 Lesli Carlitos smoking history, tot al pack/day 1/2 Lesli Carlitos cigarette use yes Lesli zhu smoking status Former smoker Lesli mirza social history E&M Marital Statu s: L herb with family/friends E thnicity: Smoking History: Noemi polo is a former smoker. Saray Salazar social history reviewed E&M revi ewed - no changes required Saray Salazar caffeine use, averag e drinks per day 0 /d Lesli Urbina passive cigarette sm pam exposure no Lesli Urbina smoking, year quit 1975 Lesli lagosblanca number of years as a smoker 20 a Lesli Urbina smoking history, tot al pack/year 7.5 Lesli Urbina smoking history, tot al pack/day 1/2 Lesli Urbina cigarette use yes Lesli zhu smoking status Former smoker Lesli mirza social history E&M Marital Statu s: L herb with family/friends E thnicity: Smoking History: Noemi polo is a former smoker. Saray Salazar social history reviewed E&M revi ewed - no changes required Saray Salazar smoking status Former smoker Lesli mirza caffeine use, averag e drinks per day 0 /d Lesli Urbina passive cigarette sm pam exposure no Lesli Urbina smoking, year quit 1975 Lesli lagosblanca number of years as a smoker 20 a Lesli Urbina smoking history, tot al pack/year 7.5 Lesli Urbina smoking history, tot al pack/day 1/2 Lesli Urbina cigarette use yes Lesli zhu social history reviewed E&M revi ewed - no changes required Saray Salazar social history E&M Marital Statu s: L herb with family/friends E thnicity: Smoking History: P atient is a former smoker. Saray Salazar social history reviewed E&M revi ewed - no changes required Saray Salazar caffeine use, averag e drinks per day 0 /d Lesli Urbina passive cigarette sm pam exposure no Lesli Urbina smoking, year quit 1975 Lesli Dickens marianna number of years as a smoker 20 a Lesli Cummingsmjblanca smoking history, tot al pack/year 7.5 Lesli Cummingsmjblanca smoking history, tot al pack/day 1/2 Lesli Cummingsmjblanca cigarette use yes Lesli zhu smoking status Former smoker Lesli rivasmarko social history reviewed E&M revi ewed - no changes required Cory Calzada caffeine use, averag e drinks per day 0 /d Yuni Rios passive cigarette sm pam exposure no Yuni Rios smoking, year quit 1976 Yuni Rios number of years as a smoker 20 a Yuni Rios smoking history, tot al pack/year 7.5 Yuni Rios smoking history, tot al pack/day 1/2 Yuni Doughertyenson cigarette use yes Yuni jain smoking status Former smoker Yunijuan pablo Olsen social history E&M Marital Statu s: L herb with family/friends E thnicity: Smoking History: P atient is a former smoker. Omar Marshall social history reviewed E&M revi ewed - no changes required Omar Marshall caffeine use, averag e drinks per day 0 /d Alex Mcdonald passive cigarette sm pam exposure no Alex Mcdonald smoking, year quit 1975 Alex greene number of years as a smoker 20 a Alex Mcdonald smoking history, tot al pack/year 7.5 Alex Mcdonald smoking history, tot al pack/day 1/2 Alex Mcdonald cigarette use yes Alex Mcdonald smoking status Former smoker Alex Silverio am social history reviewed E&M revi ewed - no changes required Eloy Plata social history E&M Marital Statu s: L herb with family/friends E thnicity: Smoking History: Noemi polo is a former smoker. Eloy Plata cigarette use yes Nayeli Abrams ms smoking status Former smoker Nayeli clay social history reviewed E&M revi ewed - no changes required Eloy Plata social history E&M Marital Statu s: L herb with family/friends E thnicity: Smoking History: Noemi polo is a former smoker. Eloy Plata alcohol use, average drinks per day no Jodee Banerjee alcohol use no Jodee farris caffeine use, averag e drinks per day 0 /d Jodee Banerjee drug use none Jodee farris passive cigarette sm pam exposure no Jodee Banerjee smoking, year quit 1975 Jodee hernandez number of years as a smoker 20 a Jodee Banerjee smoking history, tot al pack/year 7.5 Jodee Banerjee smoking history, tot al pack/day 1/2 Jodee Banerjee cigarette use yes Jodee sotomayor smoking status Former smoker Jodee briceño alcohol use, average drinks per day no Hilda Quinteros MD alcohol use no Hilda santos MD caffeine use, averag e drinks per day 0 /d Hilda Quinteros MD drug use none Hilda santos MD passive cigarette sm pam exposure no Hilda Quinteros MD smoking, year quit 1975 Hilda tirado MD number of years as a smoker 20 a Hilda Quinteros MD smoking history, tot al pack/year 7.5 Hilda Quinteros MD smoking history, tot al pack/day 1/2 Hilda Quinteros MD cigarette use yes Hilda hall MD smoking status Former smoker Hilda horton MD social history reviewed E&M revi ewed - no changes required Hilda Quinteros MD smoking status Former smoker Hilda horton MD social history E&M Marital Statu s: L herb with family/friends E thnicity: Smoking History: P melani is a former smoker. Hilda Quinteros MD number of grandchildren Hilda Vazquez social history reviewed E&M revi ewed - no changes required Anabel Vazquez alcohol use, average drinks per day no Lesli Urbina alcohol use no Lesli golden caffeine use, averag e drinks per day 0 /d Lesli Urbina drug use none Lesli golden passive cigarette sm pam exposure no Lesli Urbina smoking, year quit 1975 Lesli cabral number of years as a smoker 20 a Lesli Urbina smoking history, tot al pack/day 1/2 Lesli Urbina cigarette use yes Lesli zhu social history reviewed E&M revi ewed - no changes required Cassandra BRAVO alcohol use, average drinks per day no Yuni Rios alcohol use no Yuni diazon caffeine use, averag e drinks per day 0 /d Estrada Miguel drug use none Yuni diazon passive cigarette sm pam exposure no Yuni Rios smoking, year quit 1975 Yuni Rios number of years as a smoker 20 a Yuni Rios smoking history, tot al pack/day 1/2 Yuni Rios cigarette use yes Yuni jain smoking status Former smoker Yuni Olsen social history reviewed E&M revi ewed - no changes required Hilda Quinteros MD social history E&M Marital Statu s: Brenton estevez with family/friends E thnicity: Smoking History: Noemi polo is a former smoker. Hilda Quinteros MD alcohol use, average drinks per day no Yuni Rios alcohol use no Yuni Dubon [place] caffeine use, averag e drinks per day no Yuni Rios drug use none Yuni Dubon [place] passive cigarette sm pam exposure no Yuni Rios smoking, year quit 1976 Yuni Rios number of years as a smoker 20 a Yuni Rios smoking history, tot al pack/year 7.5 Yuni Rios smoking history, tot al pack/day 1/2 Yuni Rios cigarette use yes Yuni hinojosaguille smoking status Former smoker Yuni Olsen social history reviewed E&M revi ewed - no changes required Hilda Quinteros MD alcohol use, average drinks per day no Yuni Rios alcohol use no Yuni diazon caffeine use, averag e drinks per day no Yuni Rios drug use none Yuni diazon passive cigarette sm pam exposure no Yuni Rios smoking, year quit 1975 Yuni Rios number of years as a smoker 20 a Yuni Rios smoking history, tot al pack/year 7.5 Yuni Rios smoking history, tot al pack/day 1/2 Yuni Rios cigarette use yes Yuni hinojosaon smoking status Former smoker Yuni Olsen social history reviewed E&M revi ewed - no changes required Hilda Quinteros MD alcohol use, average drinks per day no Noemy Davey alcohol use no Noemy Davey caffeine use, averag e drinks per day no Noemy Davey drug use none Noemy Davey passive cigarette sm pam exposure no Noemy Davey smoking, year quit 1975 Noemy Cutler cCagabriella number of years as a smoker 20 a Noemy Davey smoking history, tot al pack/year 7.5 Noemy Davey smoking history, tot al pack/day 1/2 Noemy Davey cigarette use yes Noemy Davey smoking status Former smoker Noemy [place] gabriella social history reviewed E&M revi ewed - no changes required Hilda Quinteros MD alcohol use, average drinks per day no Yuni Rios alcohol use no Yuni Dubon joeon caffeine use, averag e drinks per day no Yuni Rios drug use none Yuni Dubon joeon passive cigarette sm pam exposure no Yuni Rios smoking, year quit 1975 Yuni Rios number of years as a smoker 20 a Yuni Rios smoking history, tot al pack/year 7.5 Yuni Rios smoking history, tot al pack/day 1/2 Yuni Rios cigarette use yes Yuni jain smoking status Former smoker Yuni Olsen social history reviewed E&M revi ewed - no changes required Hilda Quinteros MD alcohol use no Lesli Gomesjacobo lder smoking status Former smoker [facility] reviewed E&M revi ewed - no changes required Hilda Quinteros MD alcohol use, average drinks per day no Noemy Davey alcohol use no Noemy Davey caffeine use, averag e drinks per day no Noemy Davey drug use none Noemy Davey passive cigarette sm pam exposure no Noemy Davey smoking, year quit 1975 Noemy Cutler [facility] number of years as a smoker 20 a Noemy Davey smoking history, tot al pack/year 7.5 Noemy Davey smoking history, tot al pack/day 1/2 Noemy Davey cigarette use yes Noemy Davey smoking status Former smoker Noemy [place] gabriella alcohol use, average drinks per day no Noemy Davey alcohol use no Noemy Davey caffeine use, averag e drinks per day no Noemy Davey drug use none Noemy Davey passive cigarette sm pam exposure no Noemy Davey smoking, year quit 1975 Noemy Culter [facility] number of years as a smoker 20 a Noemy Davey smoking history, tot al pack/year 7.5 Noemy Davey smoking history, tot al pack/day 1/2 Noemy Davey cigarette use yes Noemy Davey smoking status Former smoker Noemy [place] nn social history E&M Marital Statu s: Brenton estevez with family/friends E thnicity: Smoking History: Noemi polo is a former smoker. Hilda Quinteros MD social history reviewed E&M revi ewed - no changes required Hilda Quinteros MD alcohol use, average drinks per day no Noemy Davey alcohol use no Noemy Davey caffeine use, averag e drinks per day no Noemy Davey drug use none Noemy Davey passive cigarette sm pam exposure no Noemy Davey smoking, year quit 1976 Noemy Cutler cCagabriella number of years as a smoker 20 a Noemy Davey smoking history, tot al pack/year 7.5 Noemy Davey smoking history, tot al pack/day 1/2 Noemy Davey cigarette use yes Noemy Davey smoking status Former smoker Noemy [place] nn social history reviewed E&M revi ewed - no changes required Hilda Quinteros MD smoking, year quit 1976 Sravani cross cigarette use yes Sravani Poe smoking status Former smoker Sravani Ochoalesleekane alcohol use no Lesli golden number of years as a smoker 20 a Lesli Urbina smoking history, tot al pack/day 1/2 Lesli Urbina cigarette use yes Lesli zhu smoking status Former smoker Lesli mirza social history reviewed E&M reviewed Wing Hammond RN social history reviewed E&M reviewed Wing Hammond RN social history reviewed E&M reviewed Wing Hammond RN smoking/tobacco cess ation, patient education and counseling yes Hilda Quinteros MD social history reviewed E&M reviewed Hilda Quinteros MD drug use none Hilda santos MD passive cigarette sm pam exposure no Hilda Quinteros MD smoking history, tot al pack/year 7.5 Lesli Carlitos smoking, year quit 1976 Lesil cabral drug use none Hilda santos MD social history E&M Marital Statu s: L herb with family/friends E thnicity: Wing Hammond RN caffeine use, averag e drinks per day no Wing Hammond RN alcohol use, average drinks per day no Wing Hammond RN smoking status former smoker Wing Al[place] social history reviewed E&M reviewed Wing Hammond RN FUNCTIONAL STATUS Date Observation Value Provider HRA, CV Assess/Plan, Angina (inactive) Management Plan continue current therapy Garry Ahmedzai HRA, CV Assess/Plan, Angina (inactive) Management Plan continue current therapy Garry Ahmedzai HRA, CV Assess/Plan, Angina (inactive) Management Plan continue current therapy Garry Ahmedzai HRA, CV Assess/Plan, Angina (inactive) Management Plan continue current therapy Garry Ahmedzai HRA, CV Assess/Plan, Angina (inactive) Management Plan continue current therapy Garry Ahmedzai HRA, CV Assess/Plan, Angina (inactive) Management Plan continue current therapy Garry Ahmedzai HRA, CV Assess/Plan, Angina (inactive) Management Plan continue current therapy Garry Ahmedzai Reason Fall Assessment not done medical c ontraindication Shannon Compa HRA, CV Assess/Plan, Angina (inactive) Management Plan continue current therapy Garry Ahmedzai HRA, CV Assess/Plan, Angina (inactive) Management Plan continue current therapy Garry Ahmedzai HRA, CV Assess/Plan, Angina (inactive) Management Plan continue current therapy Garry Claudiozai HRA, CV Assess/Plan, Angina (inactive) Management Plan continue current therapy Taravi Martin HRA, CV Assess/Plan, Angina (inactive) Management Plan continue current therapy Garry Claudiozai HRA, CV Assess/Plan, Angina (inactive) Management Plan continue current therapy Taewon Martin HRA, CV Assess/Plan, Angina (inactive) Management Plan continue current therapy Taewon Martin HRA, CV Assess/Plan, Angina (inactive) Management Plan continue current therapy Taewon Martin HRA, CV Assess/Plan, Angina (inactive) Management Plan continue current therapy Taewon Martin HRA, CV Assess/Plan, Angina (inactive) Management Plan continue current therapy Taewon Martin HRA, CV Assess/Plan, Angina (inactive) Management Plan continue current therapy Cory Calzada HRA, CV Assess/Plan, Angina (inactive) Management Plan continue current therapy Cory Zheng MENTAL STATUS Date Observation Value Provider assessment of judgme nt and insight E&M Alert and oriented to time, place and person. Mood and affect are normal. Wing Hammond RN assessment of judgme nt and insight E&M Alert and oriented to time, place and person. Mood and affect are normal. Wing Hammond RN assessment of judgme nt and insight E&M Alert and oriented to time, place and person. Mood and affect are normal. Wing Hammond RN assessment of judgme nt and insight E&M Alert and oriented to time, place and person. Mood and affect are normal. Hilda Quinteros MD assessment of judgme nt and insight E&M Alert and oriented to time, place and person. Mood and affect are normal. Wing Hammond RN FAMILY HISTORY Family Member Condition Father Family History of Hy pertension: Father Family History of Co ngestive Heart Failure: Father Family History of CV A or Stroke: Mother Family History of Hicks dden Cardiac : Mother Family History of Co ngestive Heart Failure: Mother Family History of Jacqueline ng Cancer: Mother Family History of Hy pertension: Mother Family History of Di abetes: Mother Family History of CV A or Stroke: INSURANCE PROVIDERS Payer name Policy type / Coverage type Zita red alliance party ID [facility] Other [employer]ARP MEDICARE ADVANTAGE [employer] (PPO) Medicare [id number] ADVANCE DIRECTIVES Name Date DISCUSSED - NO DECISION MADE TREATMENT PLAN Date Name Performer [id number],C, E cho ef 45%, 03/2022 E cho today shows EF unchanged from previous study, valves stable as well [facility] [id number],C,r ecieving radiation treatments on head lesion [facility] [id number],C, s /p cardioversion w ill screen for AF clinical study I NR today was 4.6 Garry [facility] [id number],C, C ath from 2019 1 . 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 These need to be treated medically. There is n o need for stenting as there is no focal stenosis. 2 . 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 3 . Continue aggressive risk factor modification. Gar[facility] [id number],C,stable. Garry [facility] [id number],C, N o sxs currently Garry [facility] [id number],C,p resent on occasion, stable for now [facility] [id number],C,s/p cardiover dixon Garry [facility] [id number],C,w ill check echo to assess LVF d evice check shows clinically compensated Gar[facility] [id number],C, E cho ef 45%, 03/2022 will check up to date echo [facility] [id number],C, C ath from 2019 1 . 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 These need to be treated medically. There is n o need for stenting as there is no focal stenosis. 2 . 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 3 . Continue aggressive risk factor modification. Garry mehnaz [id number],C,O ccasional dizziness, will check carotid doppler Garry mehnaz [id number],C,B iV paced, he is in AFIB about 10-15%, he is mostly asymptomatic and does not have episodes. He does have SOB on exertion, unsure if this is due to AFIB. Will monitor for now and consider Cardioversion if medical management is ineffective. Pt will consider. [facility] [id number],C,No sxs curren tlxi [facility] [id number],C,P resent on exertion, seems to be worse than before, may be attributable to his AFIB. [facility] [id number],C,C ath from 2018 1 . 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 These need to be treated medically. There is n o need for stenting as there is no focal stenosis. 2 . 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 3 . Continue aggressive risk factor modification. Garry Moreno [id number],C,t razadone was added. Aware that pt is on tramadol Hilda Quinteros MD [id number],C,Hx of Hilda Quinteros MD [id number],C, Garry Frost i [id number],B, Garry Frost i [id number],S, n o angina His updated medication list for this problem includes: Warfarin 5 Mg Tablet (Warfarin) ..... Take 1 1/2 tablet by mouth every evening except on mon&fri take 1 tab (5mg) Nitrostat 0.4 Mg Tablet, Sublingual (Nitroglycerin) ..... 1 tablet under tongue every two hours as needed Garry Frost [id number],C, B IV paced o nly stop coumadin if there is life threatening bleeding c ontinue same dose of tikosyn. [facility] [id number],C,H is last INR was 4.2 and today's INR is 2.6. P atruchi and his want to have INRS done in they local hospital in [facility] W e will respect their wishes O rders: P ARTIAL THROMBOPLASTIN TIME, ACTIVATED (763) Garryramiro [facility] [id number],C,Symptomatic, multifactorial. [facility] [id number],C, n o angina [facility] [id number],C, E cho ef 45%, 03/2022 Garry [facility] [id number],C,H e is on maximal, optimal medical therapy currently. He is cardiovascularly cleared for this surgery but he has moderate to high risk due to his age primarily, as well as ongoing medical conditions and comorbidities. I discussed with the patient about the what he would be undertaking if he went through with the surgery, as well as expectations during and postop recovery, rehabilitation. His echo showed EF of 45%, 04/12. I recommended he follow up with orthopedist for alternative options that do not involve general anesthesia. [facility] [id number],S,n o angina H is updated medication list for this problem includes: Warfarin 5 Mg Tablet (Warfarin) ..... Take 1 1/2 tablet by mouth every evening as directed by [facility] per inr Nitrostat 0.4 Mg Tablet, Sublingual (Nitroglycerin) ..... 1 tablet under tongue every two hours as needed Orders: 9 9214 MOD 30-39min (CPT-65090) [facility] [id number],S, O rders: 9 9214 MOD 30-39min (CPT-66753) [facility] [id number],S, H is updated medication list for this problem includes: Warfarin 5 Mg Tablet (Warfarin) ..... Take 1 1/2 tablet by mouth every evening as directed by [facility] per inr Dofetilide 500 Mcg Capsule (Dofetilide) ..... Take 1 capsule by mouth twice a day Lanoxin 125 Mcg (0.125 Mg) Tablet (Digoxin) ..... 1 tablet by mouth four times a day Orders: 9 14 MOD 30-39min (CPT-05204) [facility] [id number],S, O rders: 9 14 MOD 30-39min (CPT-30005) [facility] [id number],C,P t is cardiovascularly cleared for his hip surgery with moderate risk. His echo showed EF of 45% today. H is updated medication list for this problem includes: Warfarin 5 Mg Tablet (Warfarin) ..... Take 1 1/2 tablet by mouth every evening as directed by [facility] per inr Nitrostat 0.4 Mg Tablet, Sublingual (Nitroglycerin) ..... 1 tablet under tongue every two hours as needed Orders: 9 9214 MOD 30-39min (CPT-52709) [facility] [id number],C, n o angina C ATH 01/2019 impression: 1. 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 These need to be treated medically. There is no need for stenting as there is no focal stenosis. Saray Martin [id number],C, 2 8% burden I NRs to be followed at [facility] now His updated medication list for this problem includes: Warfarin 5 Mg Tablet (Warfarin) ..... Take 1 1/2 tablet by mouth every evening as directed by [facility] per inr Dofetilide 500 Mcg Capsule (Dofetilide) ..... Take 1 capsule by mouth twice a day Lanoxin 125 Mcg (0.125 Mg) Tablet (Digoxin) ..... 1 tablet by mouth four times a day Saray Salazar [id number],C, L ast echo EF 40% in 05/2021 P atruchi is not on beta kayleigh due to orthostatic hypotension R epeat echo 03/2022. His updated medication list for this problem includes: Warfarin 5 Mg Tablet (Warfarin) ..... Take 1 1/2 tablet by mouth every evening as directed by [facility] per inr Dofetilide 500 Mcg Capsule (Dofetilide) ..... Take 1 capsule by mouth twice a day Lasix 20 Mg Tablet (Furosemide) ..... Take 1 tablet by mouth once a day Lanoxin 125 Mcg (0.125 Mg) Tablet (Digoxin) ..... 1 tablet by mouth four times a day Nitrostat 0.4 Mg Tablet, Sublingual (Nitroglycerin) ..... 1 tablet under tongue every two hours as needed Entresto 24-26 Mg Tablet (Sacubitril-valsartan) ..... One tab by mouth twice daily. decrease lanoxin to 4 times weekly. Saray Salazar [id number],C, Last echo EF 40% in 05/2021 Garryramiro Frost [id number],C, n o angina C ATH 01/2019 impression: 1. 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 These need to be treated medically. There is no need for stenting as there is no focal stenosis. [facility] [id number],C, b iV paced. Asymptomatic H is updated medication list for this problem includes: Dofetilide 500 Mcg Capsule (Dofetilide) ..... Take 1 capsule by mouth twice a day Lanoxin 125 Mcg (0.125 Mg) Tablet (Digoxin) ..... 1 tablet by mouth four times a day [facility] [id number],C, S table. Short of breath and fatigued, and these limit his activities. Denies chest pain, palpitations, syncope. R arm sitting BP 98/75, HR 94. S TOP verquvo - could not tolerate S TOP metoprolol - do not throw this away. D ECREASE lasix (furosemide) to 20mg daily - take HALF a tablet of 40mg once a day. Orders: F VC - 89172 (42898) F RC - 96022 (20937) D LCO - 38113 (08407) C omplete Echo (CPT-50834) [facility] [id number],C, n o recent shocks L ast shock on 01/16/17. normal device function [facility] [id number],C, n o angina H ad stress test done with Dr. Varghese, will request results C ATH 01/2019 impression: 1. 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 These need to be treated medically. There is no need for stenting as there is no focal stenosis. His updated medication list for this problem includes: Nitrostat 0.4 Mg Tablet, Sublingual (Nitroglycerin) ..... 1 tablet under tongue every two hours as needed [facility] [id number],C, O rders: C omplete Echo (CPT-66204) Last echo EF 40% in 12/2020 C ontinues on entresto C ould not tolerate Verquvo His updated medication list for this problem includes: Lasix 20 Mg Tablet (Furosemide) ..... Take 1 tablet by mouth once a day Lanoxin 125 Mcg (0.125 Mg) Tablet (Digoxin) ..... 1 tablet by mouth four times a day Dofetilide 500 Mcg Capsule (Dofetilide) ..... Take 1 capsule by mouth twice a day Entresto 24-26 Mg Tablet (Sacubitril-valsartan) ..... One tab by mouth twice daily. decrease lanoxin to 4 times weekly. [facility] [id number],C, B IV paced o nly stop coumadin if there is life threatening bleeding c ontinue same dose of tikosyn. Orders: F VC - 99927 (99792) F RC - 31625 (21708) DLCO - 88384 (99490) A adithya Duplex Ultrasound (CPT-58048) His updated medication list for this problem includes: Coumadin 5 Mg Oral Tablet (Warfarin sodium) ..... Take one tablet every other day Dofetilide 500mcg Capsules (Dofetilide) ..... Take one capsule by mouth twice john Saray Salazar [id number],C, Saray Salazar [id number],B, n o recent shocks L ast shock on 01/16/17. normal device function His updated medication list for this problem includes: Metoprolol Succinate Er 25 Mg Oral Tablet Extended Release 24 Hour (Metoprolol succinate) ..... 1/4 pill a day Nitrostat 0.4 Mg Sublingual Tablet Sublingual (Nitroglycerin) ..... One tab. under tongue as needed. may repeat twice in 10 minutes. Coumadin 5 Mg Oral Tablet (Warfarin sodium) ..... Take one tablet every other day Dofetilide 500mcg Capsules (Dofetilide) ..... Take one capsule by mouth twice daily Saray Salazar [id number],S, n o angina H e is planning to get R hip surgery in Fall 2020. Reviewed recent testing. Would check stress nuc reg and if it is unchanged from 2019 he would be OK to proceed - patient states he will get this done with Dr. Varghese. CATH 01/2019: 1. 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 These need to be treated medically. There is n o need for stenting as there is no focal stenosis. His updated medication list for this problem includes: Metoprolol Succinate Er 25 Mg Oral Tablet Extended Release 24 Hour (Metoprolol succinate) ..... 1/4 pill a day Nitrostat 0.4 Mg Sublingual Tablet Sublingual (Nitroglycerin) ..... One tab. under tongue as needed. may repeat twice in 10 minutes. Coumadin 5 Mg Oral Tablet (Warfarin sodium) ..... Take one tablet every other day Saray Martin [id number],B, B IV paced o nly stop coumadin if there is life threatening bleeding c ontinue same dose of tikosyn. His updated medication list for this problem includes: Metoprolol Succinate Er 25 Mg Oral Tablet Extended Release 24 Hour (Metoprolol succinate) ..... 1/4 pill a day Nitrostat 0.4 Mg Sublingual Tablet Sublingual (Nitroglycerin) ..... One tab. under tongue as needed. may repeat twice in 10 minutes. Coumadin 5 Mg Oral Tablet (Warfarin sodium) ..... Take one tablet every other day Dofetilide 500mcg Capsules (Dofetilide) ..... Take one capsule by mouth twice daily Ginoravi Martin [id number],B, H e is planning to get R hip surgery in Fall 2020. Reviewed recent testing. Would check stress nuc reg and if it is unchanged from 2019 he would be OK to proceed - patient states he will get this done with Dr. Varghese. 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 s /p right sided aflutter ablation 10/24/2015. 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 L ast EF 40% by echo doppler 12/30/2020. C ATH 01/2019: 1. 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 These need to be treated medically. There is n o need for stenting as there is no focal stenosis. O n Coumadin for OAC. No recurrence of bleeding. Ginovirgenguille Salazar [id number],S, A BI 12/2020 CONCLUSIONS: 1 . Mild arterial disease of the lower extremities bilaterally above the knee. 2 . Heavily calcified bilateral tibial arteries. 3 . 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 Currently being treated for PVD medically but consider intervention to [employer]TE[employer] TECHNICIAN if worsens Saray Salazar Cardiology:due to or thopedic issues, uses walker, advised him to take extra care when ambulating. Garry Moreno Cardiology: c ompensated His updated medication list for this problem includes: Furosemide 20 Mg Tablet (Furosemide) ..... Take 1 tablet by mouth every day Dofetilide 500 Mcg Capsule (Dofetilide) ..... Take 1 capsule by mouth twice a day take 1 capsule by mouth twice daily Garryramiro Frostsam Cardiology: o n OAC with warfarin His updated medication list for this problem includes: Dofetilide 500 Mcg Capsule (Dofetilide) ..... Take 1 capsule by mouth twice a day take 1 capsule by mouth twice daily [facility]: P t denies any CP or SOB. C ath from 2018 1 . 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 These need to be treated medically. There is n o need for stenting as there is no focal stenosis. 2 . 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 3 . Continue aggressive risk factor modification. [facility] Cardiology: E cho 04/2023 CONCLUSIONS: 1 . Abnormal septal motion consistent with pacemaker or ICD implant . Normal left ventricular size. Mild to moderate c oncentric left ventricular hypertrophy. Unable to determine diastolic function due to cardiac arrhythmia. Abnormal E/E`, s uggestive of elevated LVEDP. 19.9 Left ventricular ejection fraction is measured at 50 %. 2 . Normal right ventricular size. Normal right ventricular systolic function. Linear artifact seen in the right ventricle is s uggestive of a catheter, pacer lead, or ICD lead. 3 . The left atrium is normal in size. There is moderate enlargement of the left atrium. LA volume is 121 mL The left atrial v olume is severely abnormal. 4 . Linear artifact in right atrium suggestive of catheter, pacer lead, or ICD lead. The right atrium is not well visualized. [facility] Electrophysiology: P t denies any CP or SOB. C ath from 2018 1 . 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 These need to be treated medically. There is n o need for stenting as there is no focal stenosis. 2 . 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 3 . Continue aggressive risk factor modification. [facility]: c ompensated [facility] Electrophysiology: o n OAC with warfarin [facility] Electrophysiology: E cho 04/2023 CONCLUSIONS: 1 . Abnormal septal motion consistent with pacemaker or ICD implant . Normal left ventricular size. Mild to moderate c oncentric left ventricular hypertrophy. Unable to determine diastolic function due to cardiac arrhythmia. Abnormal E/E`, s uggestive of elevated LVEDP. 19.9 Left ventricular ejection fraction is measured at 50 %. 2. Normal right ventricular size. Normal right ventricular systolic function. Linear artifact seen in the right ventricle is s uggestive of a catheter, pacer lead, or ICD lead. 3 . The left atrium is normal in size. There is moderate enlargement of the left atrium. LA volume is 121 mL The left atrial v olume is severely abnormal. 4 . Linear artifact in right atrium suggestive of catheter, pacer lead, or ICD lead. The right atrium is not well visualized. [facility] Electrophysiology:compensated [facility] Electrophysiology:on OAC with wa rfarin [facility] Electrophysiology: H is updated medication list for this problem includes: Atorvastatin 20 Mg Tablet (Atorvastatin) ..... Take 1 tablet by mouth every day [facility] Electrophysiology: s table. [facility] Electrophysiology: P t denies any CP or SOB. C ath from 2018 1 . 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 These need to be treated medically. There is n o need for stenting as there is no focal stenosis. 2 . 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 3 . Continue aggressive risk factor modification. [facility] Electrophysiology:Pt denies any CP or SOB. C ath from 2018 1 . 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 These need to be treated medically. There is n o need for stenting as there is no focal stenosis. 2 . 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 3 . Continue aggressive risk factor modification. [facility] Electrophysiology:co mpensated His updated medication list for this problem includes: Dofetilide 500 Mcg Capsule (Dofetilide) ..... Take 1 capsule by mouth twice a day take 1 capsule by mouth twice daily Warfarin 5 Mg Tablet (Warfarin) ..... Take 1 tablet by mouth every evening except on mon, wed, fri take 1 & 1/2 tabs (7.5 mg) Furosemide 20 Mg Tablet (Furosemide) ..... Take 1 tablet by mouth every day Digoxin 125 Mcg (0.125 Mg) Tablet (Digoxin) Nitrostat 0.4 Mg Tablet, Sublingual (Nitroglycerin) ..... 1 tablet under tongue every two hours as needed [facility] Electrophysiology:no AF seen on ICD [facility] Electrophysiology: H is updated medication list for this problem includes: Atorvastatin 20 Mg Tablet (Atorvastatin) ..... Take 1 tablet by mouth every day [facility] Electrophysiology:Ec ho 04/2023 CONCLUSIONS: 1 . Abnormal septal motion consistent with pacemaker or ICD implant . Normal left ventricular size. Mild to moderate c oncentric left ventricular hypertrophy. Unable to determine diastolic function due to cardiac arrhythmia. Abnormal E/E`, s uggestive of elevated LVEDP. 19.9 Left ventricular ejection fraction is measured at 50 %. 2 . Normal right ventricular size. Normal right ventricular systolic function. Linear artifact seen in the right ventricle is s uggestive of a catheter, pacer lead, or ICD lead. 3 . The left atrium is normal in size. There is moderate enlargement of the left atrium. LA volume is 121 mL The left atrial v olume is severely abnormal. 4 . Linear artifact in right atrium suggestive of catheter, pacer lead, or ICD lead. The right atrium is not well visualized. [facility] Electrophysiology: E cho ef 45%, 03/2022 E cho today shows EF unchanged from previous study, valves stable as well [facility] Electrophysiology:re cieving radiation treatments on head lesion [facility] Electrophysiology: s /p cardioversion w ill screen for AF clinical study I NR today was 4.6 [facility] Electrophysiology: C ath from 2018 1 . 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 These need to be treated medically. There is n o need for stenting as there is no focal stenosis. 2. 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 3 . Continue aggressive risk factor modification. Garry mehnaz Electrophysiology:stable. Garry hauser Electrophysiology: N o sxs currently [facility] Electrophysiology:pr esent on occasion, stable for now Garry mehnaz Electrophysiology:s/p cardiovers ion [facility] Electrophysiology:wi ll check echo to assess LVF d evice check shows clinically compensated [facility]: Safia sumner ef 45%, 03/2022 will check up to date echo [facility] Electrophysiology: C ath from 2018 1 . 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 These need to be treated medically. There is n o need for stenting as there is no focal stenosis. 2. 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 3 . Continue aggressive risk factor modification. [facility] Electrophysiology:Oc casional dizziness, will check carotid doppler [facility] Electrophysiology:Bi V paced, he is in AFIB about 10-15%, he is mostly asymptomatic and does not have episodes. He does have SOB on exertion, unsure if this is due to AFIB. Will monitor for now and consider Cardioversion if medical management is ineffective. Pt will consider. [facility] Electrophysiology:No sxs current ly [facility] Electrophysiology:Pr esent on exertion, seems to be worse than before, may be attributable to his AFIB. [facility] Electrophysiology:Ca th from 2018 1 . 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 These need to be treated medically. There is n o need for stenting as there is no focal stenosis. 2 . 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 3 . Continue aggressive risk factor modification. Garry Moreno Electrophysiology:tr azadone was added. Aware that pt is on tramadol Hilda Quinteros MD Electrophysiology:Hx of Hilda Quinteros MD Electrophysiology Hilda hall MD Electrophysiology Garry Moreno Electrophysiology: n o angina His updated medication list for this problem includes: Warfarin 5 Mg Tablet (Warfarin) ..... Take 1 1/2 tablet by mouth every evening except on mon&fri take 1 tab (5mg) Nitrostat 0.4 Mg Tablet, Sublingual (Nitroglycerin) ..... 1 tablet under tongue every two hours as needed Hilda Quinteros MD Electrophysiology: B IV paced o nly stop coumadin if there is life threatening bleeding c ontinue same dose of tikosyn. Garry Moreno Electrophysiology:Hi s last INR was 4.2 and today's INR is 2.6. P atient and his want to have INRS done in they local hospital in [facility] W e will respect their wishes O rders: P ARTIAL THROMBOPLASTIN TIME, ACTIVATED (763) Hilda Quinteros MD Electrophysiology[Rx Rsp]:Symptomatic, multifactorial. Garry Moreno Electrophysiology[Rx Rsp]: n o angina Garry Moreno Electrophysiology[Rx Rsp]: E cho ef 45%, 03/2022 Garry Moreno Electrophysiology[Rx Rsp]:He is on maximal, optimal medical therapy currently. He is cardiovascularly cleared for this surgery but he has moderate to high risk due to his age primarily, as well as ongoing medical conditions and comorbidities. I discussed with the patient about the what he would be undertaking if he went through with the surgery, as well as expectations during and postop recovery, rehabilitation. His echo showed EF of 45%, 04/12. I recommended he follow up with orthopedist for alternative options that do not involve general anesthesia. Garry Frostsam Electrophysiology:no angina H is updated medication list for this problem includes: Warfarin 5 Mg Tablet (Warfarin) ..... Take 1 1/2 tablet by mouth every evening as directed by [facility] per inr Nitrostat 0.4 Mg Tablet, Sublingual (Nitroglycerin) ..... 1 tablet under tongue every two hours as needed Orders: 9 9214 MOD 30-39min (CPT-55450) Hilda Quinteros MD Electrophysiology: O rders: 9 9214 MOD 30-39min (CPT-94484) Hilda Quinteros MD Electrophysiology: H is updated medication list for this problem includes: Warfarin 5 Mg Tablet (Warfarin) ..... Take 1 1/2 tablet by mouth every evening as directed by [facility] per inr Dofetilide 500 Mcg Capsule (Dofetilide) ..... Take 1 capsule by mouth twice a day Lanoxin 125 Mcg (0.125 Mg) Tablet (Digoxin) ..... 1 tablet by mouth four times a day Orders: 9 9214 MOD 30-39min (CPT-66509) Hilda Quinteros MD Electrophysiology: O rders: 9 9214 MOD 30-39min (CPT-81097) Hilda Quinteros MD Electrophysiology:Pt is cardiovascularly cleared for his hip surgery with moderate risk. His echo showed EF of 45% today. H is updated medication list for this problem includes: Warfarin 5 Mg Tablet (Warfarin) ..... Take 1 1/2 tablet by mouth every evening as directed by sl per inr Nitrostat 0.4 Mg Tablet, Sublingual (Nitroglycerin) ..... 1 tablet under tongue every two hours as needed Orders: 9 9214 MOD 30-39min (CPT-74295) Hilda Quinteros MD Electrophysiology: n o angina C ATH 01/2019 impression: 1. 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 These need to be treated medically. There is no need for stenting as there is no focal stenosis. Saray Salazar Electrophysiology: 2 8% burden I NRs to be followed at [facility] now His updated medication list for this problem includes: Warfarin 5 Mg Tablet (Warfarin) ..... Take 1 1/2 tablet by mouth every evening as directed by [facility] per inr Dofetilide 500 Mcg Capsule (Dofetilide) ..... Take 1 capsule by mouth twice a day Lanoxin 125 Mcg (0.125 Mg) Tablet (Digoxin) ..... 1 tablet by mouth four times a day Moisesguille Martin Electrophysiology: L ast echo EF 40% in 05/2021 P atient is not on beta kayleigh due to orthostatic hypotension R epeat echo 03/2022. His updated medication list for this problem includes: Warfarin 5 Mg Tablet (Warfarin) ..... Take 1 1/2 tablet by mouth every evening as directed by [facility] per inr Dofetilide 500 Mcg Capsule (Dofetilide) ..... Take 1 capsule by mouth twice a day Lasix 20 Mg Tablet (Furosemide) ..... Take 1 tablet by mouth once a day Lanoxin 125 Mcg (0.125 Mg) Tablet (Digoxin) ..... 1 tablet by mouth four times a day Nitrostat 0.4 Mg Tablet, Sublingual (Nitroglycerin) ..... 1 tablet under tongue every two hours as needed Entresto 24-26 Mg Tablet (Sacubitril-valsartan) ..... One tab by mouth twice daily. decrease lanoxin to 4 times weekly. Saray Salazar Electrophysiology: Last echo EF 40% in 05/2021 Garry Moreno Electrophysiology: n o angina C ATH 01/2019 impression: 1. 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 These need to be treated medically. There is no need for stenting as there is no focal stenosis. Garry Moreno Electrophysiology: b iV paced. Asymptomatic H is updated medication list for this problem includes: Dofetilide 500 Mcg Capsule (Dofetilide) ..... Take 1 capsule by mouth twice a day Lanoxin 125 Mcg (0.125 Mg) Tablet (Digoxin) ..... 1 tablet by mouth four times a day Garry Moreno Electrophysiology: S table. Short of breath and fatigued, and these limit his activities. Denies chest pain, palpitations, syncope. R arm sitting BP 98/75, HR 94. S TOP verquvo - could not tolerate S TOP metoprolol - do not throw this away. D ECREASE lasix (furosemide) to 20mg daily - take HALF a tablet of 40mg once a day. Orders: F VC - 17525 ([id number]) F RC - 83972 ([id number]) D LCO - 15439 ([id number]) C omplete Echo (CPT-76387) [facility] Electrophysiology: n o recent shocks L ast shock on 01/16/17. normal device function Martin Electrophysiology: n o angina H ad stress test done with Dr. Varghese, will request results C ATH 01/2019 impression: 1. 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 These need to be treated medically. There is no need for stenting as there is no focal stenosis. His updated medication list for this problem includes: Nitrostat 0.4 Mg Tablet, Sublingual (Nitroglycerin) ..... 1 tablet under tongue every two hours as needed [facility] Electrophysiology: O rders: C omplete Echo (CPT-65433) Last echo EF 40% in 12/2020 C ontinues on entresto C ould not tolerate Verquvo His updated medication list for this problem includes: Lasix 20 Mg Tablet (Furosemide) ..... Take 1 tablet by mouth once a day Lanoxin 125 Mcg (0.125 Mg) Tablet (Digoxin) ..... 1 tablet by mouth four times a day Dofetilide 500 Mcg Capsule (Dofetilide) ..... Take 1 capsule by mouth twice a day Entresto 24-26 Mg Tablet (Sacubitril-valsartan) ..... One tab by mouth twice daily. decrease lanoxin to 4 times weekly. [facility] Electrophysiology: B IV paced o nly stop coumadin if there is life threatening bleeding c ontinue same dose of tikosyn. Orders: F VC - [id number] ([id number]) F RC - 22168 ([id number]) DLCO - 49648 ([id number]) A adithya Duplex Ultrasound (CPT-54559) His updated medication list for this problem includes: Coumadin 5 Mg Oral Tablet (Warfarin sodium) ..... Take one tablet every other day Dofetilide 500mcg Capsules (Dofetilide) ..... Take one capsule by mouth twice john Saray Martin Electrophysiology Follow up 12 T patt Martin Electrophysiology Fo llow up 12: n o recent shocks L ast shock on 01/16/17. normal device function His updated medication list for this problem includes: Metoprolol Succinate Er 25 Mg Oral Tablet Extended Release 24 Hour (Metoprolol succinate) ..... 1/4 pill a day Nitrostat 0.4 Mg Sublingual Tablet Sublingual (Nitroglycerin) ..... One tab. under tongue as needed. may repeat twice in 10 minutes. Coumadin 5 Mg Oral Tablet (Warfarin sodium) ..... Take one tablet every other day Dofetilide 500mcg Capsules (Dofetilide) ..... Take one capsule by mouth twice daily Saray Martin Electrophysiology Fo llow up 12: n o angina H e is planning to get R hip surgery in Fall 2020. Reviewed recent testing. Would check stress nuc reg and if it is unchanged from 2018 he would be OK to proceed - patient states he will get this done with Dr. Varghese. CATH 01/2019: 1. 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 These need to be treated medically. There is n o need for stenting as there is no focal stenosis. His updated medication list for this problem includes: Metoprolol Succinate Er 25 Mg Oral Tablet Extended Release 24 Hour (Metoprolol succinate) ..... 1/4 pill a day Nitrostat 0.4 Mg Sublingual Tablet Sublingual (Nitroglycerin) ..... One tab. under tongue as needed. may repeat twice in 10 minutes. Coumadin 5 Mg Oral Tablet (Warfarin sodium) ..... Take one tablet every other day Moisesguille Salazar Electrophysiology Fo llow up 12: B IV paced o nly stop coumadin if there is life threatening bleeding c ontinue same dose of tikosyn. His updated medication list for this problem includes: Metoprolol Succinate Er 25 Mg Oral Tablet Extended Release 24 Hour (Metoprolol succinate) ..... 1/4 pill a day Nitrostat 0.4 Mg Sublingual Tablet Sublingual (Nitroglycerin) ..... One tab. under tongue as needed. may repeat twice in 10 minutes. Coumadin 5 Mg Oral Tablet (Warfarin sodium) ..... Take one tablet every other day Dofetilide 500mcg Capsules (Dofetilide) ..... Take one capsule by mouth twice daily Saray Salazar Electrophysiology Fo llow up 12: H e is planning to get R hip surgery in Fall 2020. Reviewed recent testing. Would check stress nuc reg and if it is unchanged from 2018 he would be OK to proceed - patient states he will get this done with Dr. Varghese. 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 s /p right sided aflutter ablation 10/24/2015. 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 L ast EF 40% by echo doppler 12/30/2020. C ATH 01/2019: 1. 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 These need to be treated medically. There is n o need for stenting as there is no focal stenosis. O n Coumadin for OAC. No recurrence of bleeding. Saray Salazar Electrophysiology Fo llow up 12: A BI 12/2020 CONCLUSIONS: 1 . Mild arterial disease of the lower extremities bilaterally above the knee. 2 . Heavily calcified bilateral tibial arteries. 3 . 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 Currently being treated for PVD medically but consider intervention to PLANT MAINTENANCE TECHNICIAN if worsens Saray Salazar Electrophysiology Fo llow up 14: n o chest pain c ath 10/2015 results reviewed His updated medication list for this problem includes: Metoprolol Succinate Er 25 Mg Oral Tablet Extended Release 24 Hour (Metoprolol succinate) ..... 1/4 pill a day Nitrostat 0.4 Mg Sublingual Tablet Sublingual (Nitroglycerin) ..... One tab. under tongue as needed. may repeat twice in 10 minutes. Coumadin 5 Mg Oral Tablet (Warfarin sodium) ..... Take one tablet every other day Saray Salazar Electrophysiology Fo llow up 14: N o recent shocks from biv icd H is updated medication list for this problem includes: Metoprolol Succinate Er 25 Mg Oral Tablet Extended Release 24 Hour (Metoprolol succinate) ..... 1/4 pill a day Nitrostat 0.4 Mg Sublingual Tablet Sublingual (Nitroglycerin) ..... One tab. under tongue as needed. may repeat twice in 10 minutes. Coumadin 5 Mg Oral Tablet (Warfarin sodium) ..... Take one tablet every other day Dofetilide 500mcg Capsules (Dofetilide) ..... Take one capsule by mouth twice daily Saray Salazar Electrophysiology Fo llow up 14: b iV paced o nly stop coumadin if there is life threatening bleeding AT/AF [place]: 0.0% % Pacing: RA - 60% RV - 95% LV - 95% T ransthoracic Impedance: 69.7 ohms today c ompared to baseline of 68.5 ohms T echnician Summary: 4 AF event EGMs (longest duration 1 [id number] - fastest avg rate 90bpm) A trial burden 0% of day. 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 B attery: OK His updated medication list for this problem includes: Metoprolol Succinate Er 25 Mg Oral Tablet Extended Release 24 Hour (Metoprolol succinate) ..... 1/4 pill a day Nitrostat 0.4 Mg Sublingual Tablet Sublingual (Nitroglycerin) ..... One tab. under tongue as needed. may repeat twice in 10 minutes. Coumadin 5 Mg Oral Tablet (Warfarin sodium) ..... Take one tablet every other day Dofetilide 500mcg Capsules (Dofetilide) ..... Take one capsule by mouth twice daily Saray Salazar Electrophysiology Fo llow up 14: s tart entresto Echo 12/2020 CONCLUSIONS: 1 . There is dyskinesis in the Inferior and inferolateral arndt. Mild enlargement of left ventricular chamber. Normal wall t hickness. Left ventricular ejection fraction is measured at 40 %. 2 . Normal right ventricular size. Linear artifact seen in the right ventricle is suggestive of a catheter, pacer lead, or ICD lead. 3 . There is moderate enlargement of the left atrium. 4 . There is moderate enlargement of right atrium. Linear artifact in right atrium suggestive of catheter, pacer lead, or ICD l ead. 5 . Moderate mitral annular calcification. Mild mitral stenosis. There is non-specific thickening of the mitral valve leaflets. Mild m itral valve regurgitation. 6 . Normal appearing tricuspid valve leaflets. There is mild to moderate tricuspid regurgitation. Estimated peak pulmonary a rtery systolic pressure is 30.0 mmHg. His updated medication list for this problem includes: Entresto 24-26 Mg Oral Tablet (Sacubitril-valsartan) ..... One tab by mouth twice daily. decrease lanoxin to 4 times weekly. Metoprolol Succinate Er 25 Mg Oral Tablet Extended Release 24 Hour (Metoprolol succinate) ..... 1/4 pill a day Nitrostat 0.4 Mg Sublingual Tablet Sublingual (Nitroglycerin) ..... One tab. under tongue as needed. may repeat twice in 10 minutes. Coumadin 5 Mg Oral Tablet (Warfarin sodium) ..... Take one tablet every other day Lasix 40 Mg Oral Tablet (Furosemide) ..... Once daily or an extra 1/2 if needed Lanoxin 125 Mcg Oral Tablet (Digoxin) ..... 1 tablet by mouth four times a week. decreased dose. Dofetilide 500mcg Capsules (Dofetilide) ..... Take one capsule by mouth twice daily Saray Salazar Electrophysiology Fo llow up 14: b iV paced s /p atrial flutter left sided and fibrillation ablation on 11/11/2012. s /p right sided aflutter ablation 10/24/2015. His updated medication list for this problem includes: Metoprolol Succinate Er 25 Mg Oral Tablet Extended Release 24 Hour (Metoprolol succinate) ..... 1/4 pill a day Coumadin 5 Mg Oral Tablet (Warfarin sodium) ..... Take one tablet every other day Lanoxin 125 Mcg Oral Tablet (Digoxin) ..... 1 tablet by mouth four times a week. decreased dose. Dofetilide 500mcg Capsules (Dofetilide) ..... Take one capsule by mouth twice daily Saray Salazar Electrophysiology Fo llow up 14: A BI CONCLUSIONS: 1 . Mild arterial disease of the lower extremities bilaterally above the knee. 2 . Heavily calcified bilateral tibial arteries. 3 . 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 ravi Martin [facility] 20+: O rders: C OMPREHENSIVE METABOLIC PANEL, W/EGFR (70894) C BC (H/H, RBC, INDICES, WBC, PLT) (1759) M AGNESIUM (622) Saray Martin [facility] 20+: n o recurrence [facility] 20+: n o chest pain c ath 10/2015 results reviewed His updated medication list for this problem includes: Nitrostat 0.4 Mg Sublingual Tablet Sublingual (Nitroglycerin) ..... One tab. under tongue as needed. may repeat twice in 10 minutes. Coumadin 5 Mg Oral Tablet (Warfarin sodium) ..... Take one tablet every other day Metoprolol Succinate Er 25 Mg Oral Tablet Extended Release 24 Hour (Metoprolol succinate) ..... [facility] tab. [facility] 20[facility]: L ast shock on 01/16/17, successfully converted to sinus rhythm. His updated medication list for this problem includes: Lisinopril 2.5 Mg Oral Tablet (Lisinopril) ..... One tab at bedtime Nitrostat 0.4 Mg Sublingual Tablet Sublingual (Nitroglycerin) ..... One tab. under tongue as needed. may repeat twice in 10 minutes. Coumadin 7.5 Mg Oral Tablet (Warfarin sodium) ..... One tablet every other day, alternate with 5mg tablets Coumadin 5 Mg Oral Tablet (Warfarin sodium) ..... Take one tablet every other day Metoprolol Succinate Er 100 Mg Oral Tablet Extended Release 24 Hour (Metoprolol succinate) ..... One tab daily at night, stopped metoprolol tartrate 50mg bid. generic okay. Dofetilide 500 Mcg Oral Capsule (Dofetilide) ..... One tab twice daily Aspirin 81 Mg Oral Tablet (Aspirin) ..... One tab. daily Saray Salazar [facility] 20+: o nly stop coumadin if there is life threatening bleeding AT/AF [place]: 0.0% % Pacing: RA - 60% RV - 95% LV - 95% T ransthoracic Impedance: 69.7 ohms today c ompared to baseline of 68.5 ohms T echnician Summary: 4 AF event EGMs (longest duration 1 [id number] - fastest avg rate 90bpm) A trial burden 0% of day. C RT: 95% I CM trend is stable. B attery: OK His updated medication list for this problem includes: Nitrostat 0.4 Mg Sublingual Tablet Sublingual (Nitroglycerin) ..... One tab. under tongue as needed. may repeat twice in 10 minutes. Coumadin 5 Mg Oral Tablet (Warfarin sodium) ..... Take one tablet every other day Metoprolol Succinate Er 25 Mg Oral Tablet Extended Release 24 Hour (Metoprolol succinate) ..... One tab. daily Dofetilide 500mcg Capsules (Dofetilide) ..... Take one capsule by mouth twice daily Saray Salazar [facility] 20+: neeraj oswald does have known neuropathy however pain seems to be worse lately Orders: A rterial Duplex Bi-Lower EX (CPT-24253) Saray Salazar Electrophysiology [facility] Follow up - completed : O rders: F VC - 38710 ([id number]) F RC - 75231 (78752) D LCO - 24257 (90231) The following medications were removed from the medication list: Aspirin 81 Mg Oral Tablet (Aspirin) ..... One tab. daily Lisinopril 5 Mg Oral Tablet (Lisinopril) ..... One tab. daily His updated medication list for this problem includes: Lasix 40 Mg Oral Tablet (Furosemide) ..... Once daily or an extra 1/2 if needed Lanoxin 125 Mcg Oral Tablet (Digoxin) ..... 1 tablet by mouth daily Metoprolol Succinate Er 25 Mg Oral Tablet Extended Release 24 Hour (Metoprolol succinate) ..... One tab. daily Saray Salazar Electrophysiology Ho spital Follow up - completed : Neeraj oswald had an echo 10/2019 which shows an EF of 60%. Continues to have TR and minimal AI by atrial enlargement on echo. The following medications were removed from the medication list: Aspirin 81 Mg Oral Tablet (Aspirin) ..... One tab. daily Lisinopril 5 Mg Oral Tablet (Lisinopril) ..... One tab. daily Coumadin 7.5 Mg Oral Tablet (Warfarin sodium) ..... One tablet every other day, alternate with 5mg tablets His updated medication list for this problem includes: Nitrostat 0.4 Mg Sublingual Tablet Sublingual (Nitroglycerin) ..... One tab. under tongue as needed. may repeat twice in 10 minutes. Coumadin 5 Mg Oral Tablet (Warfarin sodium) ..... Take one tablet every other day Lasix 40 Mg Oral Tablet (Furosemide) ..... Once daily or an extra 1/2 if needed Lanoxin 125 Mcg Oral Tablet (Digoxin) ..... 1 tablet by mouth daily Metoprolol Succinate Er 25 Mg Oral Tablet Extended Release 24 Hour (Metoprolol succinate) ..... One tab. daily Dofetilide 500mcg Capsules (Dofetilide) ..... Take one capsule by mouth twice daily Saray Salazar Electrophysiology cam Follow up - completed :ECHO 10/2019: 1 . Abnormal septal motion consistent with pacemaker or ICD implant . There is septal hypertrophy without outflow tract o bstruction. Left ventricular dyssynchrony is present. Normal left ventricular size. Abnormal E/E`, suggestive of elevated L VEDP. 17.1. Left ventricular ejection fraction is measured at 55 %. 2 . Mild enlargement of right ventricle. Normal right ventricular systolic function. Linear artifact seen in the right ventricle is s uggestive of a catheter, pacer lead, or ICD lead. 3 . There is moderate enlargement of the left atrium. 4 . There is moderate enlargement of right atrium. Linear artifact in right atrium suggestive of catheter, pacer lead, or ICD l ead. 5 . The mitral valve leaflets appear myxomatous. The mitral valve is S/P Ring Repair. No mitral valve regurgitation is seen. 6 . There is non-specific thickening of the tricuspid valve. There is moderate tricuspid regurgitation. IVC is dilated with partial r espiratory response, consistent with moderately elevated right atrial pressures. The RA pressure is estimated at 3.0 mmHg. E stimated peak pulmonary artery systolic pressure is 31.0 mmHg. His updated medication list for this problem includes: Nitrostat 0.4 Mg Sublingual Tablet Sublingual (Nitroglycerin) ..... One tab. under tongue as needed. may repeat twice in 10 minutes. Coumadin 5 Mg Oral Tablet (Warfarin sodium) ..... Take one tablet every other day Lasix 40 Mg Oral Tablet (Furosemide) ..... Once daily or an extra 1/2 if needed Lanoxin 125 Mcg Oral Tablet (Digoxin) ..... 1 tablet by mouth daily Metoprolol Succinate Er 25 Mg Oral Tablet Extended Release 24 Hour (Metoprolol succinate) ..... One tab. daily Dofetilide 500mcg Capsules (Dofetilide) ..... Take one capsule by mouth twice daily Saray Salazar Electrophysiology [facility] Follow up - completed :COUMADIN SHOULD BE STOPPED IF LIFE THREATENING BLEEDING OCCURS The following medications were removed from the medication list: Aspirin 81 Mg Oral Tablet (Aspirin) ..... One tab. daily Lisinopril 5 Mg Oral Tablet (Lisinopril) ..... One tab. daily Coumadin 7.5 Mg Oral Tablet (Warfarin sodium) ..... One tablet every other day, alternate with 5mg tablets His updated medication list for this problem includes: Nitrostat 0.4 Mg Sublingual Tablet Sublingual (Nitroglycerin) ..... One tab. under tongue as needed. may repeat twice in 10 minutes. Coumadin 5 Mg Oral Tablet (Warfarin sodium) ..... Take one tablet every other day Metoprolol Succinate Er 25 Mg Oral Tablet Extended Release 24 Hour (Metoprolol succinate) ..... One tab. daily Dofetilide 500mcg Capsules (Dofetilide) ..... Take one capsule by mouth twice daily Saray Salazar Electrophysiology Cory Calzada Electrophysiology:Pe riodic EGM: AP/RVP/LVP 2 1 Atrial Flutter events ( longest duration [id number] ? fastest Ventricular rate 98bpm) C RT pacin% A trial [place]: 0% last 24 hr period T I trend is stable at 70ohm B attery status: 36% Cory Calzada Electrophysiology:He had an echo today which shows an EF of 60%. Continues to have TR and minimal AI by atrial enlargement on echo today. H is updated medication list for this problem includes: Lisinopril 5 Mg Oral Tablet (Lisinopril) ..... One tab. daily Nitrostat 0.4 Mg Sublingual Tablet Sublingual (Nitroglycerin) ..... One tab. under tongue as needed. may repeat twice in 10 minutes. Coumadin 7.5 Mg Oral Tablet (Warfarin sodium) ..... One tablet every other day, alternate with 5mg tablets Coumadin 5 Mg Oral Tablet (Warfarin sodium) ..... Take one tablet every other day Metoprolol Er Succinate 100mg Tabs (Metoprolol succinate) ..... Take 1 tablet by mouth daily at night( stopped metoprolol tartrate 50 mg twice daily) Aspirin 81 Mg Oral Tablet (Aspirin) ..... One tab. daily Cory Zheng Electrophysiology: H is updated medication list for this problem includes: Lisinopril 5 Mg Oral Tablet (Lisinopril) ..... One tab. daily Nitrostat 0.4 Mg Sublingual Tablet Sublingual (Nitroglycerin) ..... One tab. under tongue as needed. may repeat twice in 10 minutes. Coumadin 7.5 Mg Oral Tablet (Warfarin sodium) ..... One tablet every other day, alternate with 5mg tablets Coumadin 5 Mg Oral Tablet (Warfarin sodium) ..... Take one tablet every other day Lasix 40 Mg Oral Tablet (Furosemide) ..... Once daily or an extra 1/2 if needed Lanoxin 125 Mcg Oral Tablet (Digoxin) ..... 1 tablet by mouth daily Metoprolol Er Succinate 100mg Tabs (Metoprolol succinate) ..... Take 1 tablet by mouth daily at night( stopped metoprolol tartrate 50 mg twice daily) Dofetilide 500 Mcg Oral Capsule (Dofetilide) ..... One tab twice daily Aspirin 81 Mg Oral Tablet (Aspirin) ..... One tab. daily Cory Zheng Electrophysiology:He had an echo today which shows an EF of 60%. Continues to have TR and minimal AI by atrial enlargement on echo today. His updated medication list for this problem includes: Lisinopril 5 Mg Oral Tablet (Lisinopril) ..... One tab. daily Nitrostat 0.4 Mg Sublingual Tablet Sublingual (Nitroglycerin) ..... One tab. under tongue as needed. may repeat twice in 10 minutes. Coumadin 7.5 Mg Oral Tablet (Warfarin sodium) ..... One tablet every other day, alternate with 5mg tablets Coumadin 5 Mg Oral Tablet (Warfarin sodium) ..... Take one tablet every other day Lasix 40 Mg Oral Tablet (Furosemide) ..... Once daily or an extra 1/2 if needed Lanoxin 125 Mcg Oral Tablet (Digoxin) ..... 1 tablet by mouth daily Metoprolol Er Succinate 100mg Tabs (Metoprolol succinate) ..... Take 1 tablet by mouth daily at night( stopped metoprolol tartrate 50 mg twice daily) Dofetilide 500 Mcg Oral Capsule (Dofetilide) ..... One tab twice daily Aspirin 81 Mg Oral Tablet (Aspirin) ..... One tab. daily Cory Calzada Electrophysiology: H is updated medication list for this problem includes: Lisinopril 2.5 Mg Oral Tablet (Lisinopril) ..... One tab at bedtime Nitrostat 0.4 Mg Sublingual Tablet Sublingual (Nitroglycerin) ..... One tab. under tongue as needed. may repeat twice in 10 minutes. Coumadin 7.5 Mg Oral Tablet (Warfarin sodium) ..... One tablet every other day, alternate with 5mg tablets Coumadin 5 Mg Oral Tablet (Warfarin sodium) ..... Take one tablet every other day Metoprolol Succinate Er 100 Mg Oral Tablet Extended Release 24 Hour (Metoprolol succinate) ..... One tab daily at night, stopped metoprolol tartrate 50mg bid. generic okay. Dofetilide 500 Mcg Oral Capsule (Dofetilide) ..... One tab twice daily Aspirin 81 Mg Oral Tablet (Aspirin) ..... One tab. daily Orders: 9 9215 HIGH Complex (CPT-35570) S chedule Followup (*) P ROTHROMBIN TIME WITH INR (6547) Omar Alicearoberto carloscassandra Electrophysiology: H is updated medication list for this problem includes: Lisinopril 2.5 Mg Oral Tablet (Lisinopril) ..... One tab at bedtime Nitrostat 0.4 Mg Sublingual Tablet Sublingual (Nitroglycerin) ..... One tab. under tongue as needed. may repeat twice in 10 minutes. Coumadin 7.5 Mg Oral Tablet (Warfarin sodium) ..... One tablet every other day, alternate with 5mg tablets Coumadin 5 Mg Oral Tablet (Warfarin sodium) ..... Take one tablet every other day Lasix 40 Mg Oral Tablet (Furosemide) ..... Once daily or an extra 1/2 if needed Lanoxin 125 Mcg Oral Tablet (Digoxin) ..... 1 tablet by mouth daily Metoprolol Succinate Er 100 Mg Oral Tablet Extended Release 24 Hour (Metoprolol succinate) ..... One tab daily at night, stopped metoprolol tartrate 50mg bid. generic okay. Dofetilide 500 Mcg Oral Capsule (Dofetilide) ..... One tab twice daily Aspirin 81 Mg Oral Tablet (Aspirin) ..... One tab. daily Omar Alicearoberto carloscassandra Electrophysiology: H is updated medication list for this problem includes: Lisinopril 2.5 Mg Oral Tablet (Lisinopril) ..... One tab at bedtime Nitrostat 0.4 Mg Sublingual Tablet Sublingual (Nitroglycerin) ..... One tab. under tongue as needed. may repeat twice in 10 minutes. Coumadin 7.5 Mg Oral Tablet (Warfarin sodium) ..... One tablet every other day, alternate with 5mg tablets Coumadin 5 Mg Oral Tablet (Warfarin sodium) ..... Take one tablet every other day Lasix 40 Mg Oral Tablet (Furosemide) ..... Once daily or an extra 1/2 if needed Lanoxin 125 Mcg Oral Tablet (Digoxin) ..... 1 tablet by mouth daily Metoprolol Succinate Er 100 Mg Oral Tablet Extended Release 24 Hour (Metoprolol succinate) ..... One tab daily at night, stopped metoprolol tartrate 50mg bid. generic okay. Dofetilide 500 Mcg Oral Capsule (Dofetilide) ..... One tab twice daily Aspirin 81 Mg Oral Tablet (Aspirin) ..... One tab. daily Omar Joanna Electrophysiology: s /p BiV ICD 11/2015. E cho 06/27/18 showed EF 35%, mild-mod AR, mod LAE, mod LOGAN. His updated medication list for this problem includes: Lisinopril 2.5 Mg Oral Tablet (Lisinopril) ..... One tab at bedtime Nitrostat 0.4 Mg Sublingual Tablet Sublingual (Nitroglycerin) ..... One tab. under tongue as needed. may repeat twice in 10 minutes. Coumadin 7.5 Mg Oral Tablet (Warfarin sodium) ..... One tablet every other day, alternate with 5mg tablets Coumadin 5 Mg Oral Tablet (Warfarin sodium) ..... Take one tablet every other day Lasix 40 Mg Oral Tablet (Furosemide) ..... Once daily or an extra 1/2 if needed Lanoxin 125 Mcg Oral Tablet (Digoxin) ..... 1 tablet by mouth daily Metoprolol Succinate Er 100 Mg Oral Tablet Extended Release 24 Hour (Metoprolol succinate) ..... One tab daily at night, stopped metoprolol tartrate 50mg bid. generic okay. Dofetilide 500 Mcg Oral Capsule (Dofetilide) ..... One tab twice daily Aspirin 81 Mg Oral Tablet (Aspirin) ..... One tab. daily Eloy Plata Electrophysiology: s /p BiV ICD 11/2015. E cho 06/27/18 showed EF 35%, mild-mod AR, mod LAE, mod LOGAN. His updated medication list for this problem includes: Lisinopril 2.5 Mg Oral Tablet (Lisinopril) ..... One tab at bedtime Nitrostat 0.4 Mg Sublingual Tablet Sublingual (Nitroglycerin) ..... One tab. under tongue as needed. may repeat twice in 10 minutes. Coumadin 7.5 Mg Oral Tablet (Warfarin sodium) ..... One tablet every other day, alternate with 5mg tablets Coumadin 5 Mg Oral Tablet (Warfarin sodium) ..... Take one tablet every other day Lasix 40 Mg Oral Tablet (Furosemide) ..... Once daily or an extra 1/2 if needed Lanoxin 125 Mcg Oral Tablet (Digoxin) ..... 1 tablet by mouth daily Metoprolol Succinate Er 100 Mg Oral Tablet Extended Release 24 Hour (Metoprolol succinate) ..... One tab daily at night, stopped metoprolol tartrate 50mg bid. generic okay. Dofetilide 500 Mcg Oral Capsule (Dofetilide) ..... One tab twice daily Aspirin 81 Mg Oral Tablet (Aspirin) ..... One tab. daily Eloy Plata Electrophysiology: s /p atrial flutter left sided and fibrillation ablation on 11/11/2012. s /p right sided aflutter ablation 10/24/2015. R michelle in sinus rhythm on EKG today. His updated medication list for this problem includes: Coumadin 7.5 Mg Oral Tablet (Warfarin sodium) ..... One tablet every other day, alternate with 5mg tablets Coumadin 5 Mg Oral Tablet (Warfarin sodium) ..... Take one tablet every other day Lanoxin 125 Mcg Oral Tablet (Digoxin) ..... 1 tablet by mouth daily Metoprolol Succinate Er 100 Mg Oral Tablet Extended Release 24 Hour (Metoprolol succinate) ..... One tab daily at night, stopped metoprolol tartrate 50mg bid. generic okay. Dofetilide 500 Mcg Oral Capsule (Dofetilide) ..... One tab twice daily Aspirin 81 Mg Oral Tablet (Aspirin) ..... One tab. daily Eloy Plata Electrophysiology: N ormal function. N o VT. No shocks. Eloy Plata Electrophysiology: P atient is here to be cleared for upcoming knee surgery. 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 s /p right sided aflutter ablation 10/24/2015. 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 L ast EF 35% by echo doppler 06/27/18. O n Coumadin for OAC. Will check Adenosine nuclear stress test. Patient cannot walk on treadmill due to arthritis and knee pain. Orders: S tress Regadenoson (CPT-07222) His updated medication list for this problem includes: Lisinopril 2.5 Mg Oral Tablet (Lisinopril) ..... One tab at bedtime Nitrostat 0.4 Mg Sublingual Tablet Sublingual (Nitroglycerin) ..... One tab. under tongue as needed. may repeat twice in 10 minutes. Coumadin 7.5 Mg Oral Tablet (Warfarin sodium) ..... One tablet every other day, alternate with 5mg tablets Coumadin 5 Mg Oral Tablet (Warfarin sodium) ..... Take one tablet every other day Metoprolol Succinate Er 100 Mg Oral Tablet Extended Release 24 Hour (Metoprolol succinate) ..... One tab daily at night, stopped metoprolol tartrate 50mg bid. generic okay. Aspirin 81 Mg Oral Tablet (Aspirin) ..... One tab. daily Eloy Plata Electrophysiology fo llow up :Orders: C OMPREHENSIVE METABOLIC PANEL, W/EGFR (53084) C BC (H/H, RBC, INDICES, WBC, PLT) (1759) L IPID PANEL (5060) T HYROID PANEL WITH TSH, 3RD GENERATION (2038) M AGNESIUM (622) D IGOXIN [phone] HIGH Complex (CPT-65556) S chedule Followup (*) His updated medication list for this problem includes: Lisinopril 2.5 Mg Oral Tablet (Lisinopril) ..... One tab at bedtime Nitrostat 0.4 Mg Sublingual Tablet Sublingual (Nitroglycerin) ..... One tab. under tongue as needed. may repeat twice in 10 minutes. Coumadin 7.5 Mg Oral Tablet (Warfarin sodium) ..... One tablet every other day, alternate with 5mg tablets Coumadin 5 Mg Oral Tablet (Warfarin sodium) ..... Take one tablet every other day Metoprolol Succinate Er 100 Mg Oral Tablet Extended Release 24 Hour (Metoprolol succinate) ..... One tab daily at night, stopped metoprolol tartrate 50mg bid. generic okay. Dofetilide 500 Mcg Oral Capsule (Dofetilide) ..... One tab twice daily Aspirin 81 Mg Oral Tablet (Aspirin) ..... One tab. daily Eloy Plata Electrophysiology fo llow up :s/p BiV ICD 11/2015. E cho today 06/27/18 showed EF 35%, mild-mod AR, mod LAE, mod LOGAN. Orders: C OMPREHENSIVE METABOLIC PANEL, W/EGFR (66755) C BC (H/H, RBC, INDICES, WBC, PLT) (1759) L IPID PANEL (9610) T HYROID PANEL WITH TSH, 3RD GENERATION (7444) M AGNESIUM (622) D IGOXIN ([phone] HIGH Complex (CPT-92483) S chedule Followup (*) His updated medication list for this problem includes: Lisinopril 2.5 Mg Oral Tablet (Lisinopril) ..... One tab at bedtime Nitrostat 0.4 Mg Sublingual Tablet Sublingual (Nitroglycerin) ..... One tab. under tongue as needed. may repeat twice in 10 minutes. Coumadin 7.5 Mg Oral Tablet (Warfarin sodium) ..... One tablet every other day, alternate with 5mg tablets Coumadin 5 Mg Oral Tablet (Warfarin sodium) ..... Take one tablet every other day Lasix 40 Mg Oral Tablet (Furosemide) ..... Once daily or an extra 1/2 if needed Lanoxin 125 Mcg Oral Tablet (Digoxin) ..... 1 tablet by mouth daily Metoprolol Succinate Er 100 Mg Oral Tablet Extended Release 24 Hour (Metoprolol succinate) ..... One tab daily at night, stopped metoprolol tartrate 50mg bid. generic okay. Dofetilide 500 Mcg Oral Capsule (Dofetilide) ..... One tab twice daily Aspirin 81 Mg Oral Tablet (Aspirin) ..... One tab. daily Eloy Plata Electrophysiology fo llow up :Last shock on 01/16/17, successfully converted to sinus rhythm. Orders: E KG (CPT-51391) 9 9215 HIGH Complex (CPT-20028) His updated medication list for this problem includes: Lisinopril 2.5 Mg Oral Tablet (Lisinopril) ..... One tab at bedtime Nitrostat 0.4 Mg Sublingual Tablet Sublingual (Nitroglycerin) ..... One tab. under tongue as needed. may repeat twice in 10 minutes. Coumadin 7.5 Mg Oral Tablet (Warfarin sodium) ..... One tablet every other day, alternate with 5mg tablets Coumadin 5 Mg Oral Tablet (Warfarin sodium) ..... Take one tablet every other day Metoprolol Succinate Er 100 Mg Oral Tablet Extended Release 24 Hour (Metoprolol succinate) ..... One tab daily at night, stopped metoprolol tartrate 50mg bid. generic okay. Dofetilide 500 Mcg Oral Capsule (Dofetilide) ..... One tab twice daily Aspirin 81 Mg Oral Tablet (Aspirin) ..... One tab. daily Eloy Plata Electrophysiology:Will have labs done. Hilda Quinteros MD EP faxed 02/15/17:Per primary card iologist Hilda Quinteros MD EP faxed 02/15/17:View ed chest X-ray. Leads are in correct position. Device looks well. Hilda Quinteros MD EP faxed 02/15/17:EKG today shows underlying Atrial Flutter. Will schedule LINK/CV in 4 weeks Hilda Quinteros MD EP faxed 02/15/17:Kristen flowers on 01/16/2017. Patient received ICD shock that felt recording into the ventricular fibrillation zone, which is set for higher than 222 beats per minute. Shock was successful with the patient converted to sinus rhythm. Anabel Vazquez Cardiology faxed 12/15 05/02 1353:Increased beta kayleigh dose. Estrada Rivera Cardiology faxed 12/15 05/02 1353:No recent shocks. His updated medication list for this problem includes: Lisinopril 2.5 Mg Tabs (Lisinopril) ..... One tab at bedtime Nitrostat 0.4 Mg Subl (Nitroglycerin) ..... One tab. under tongue as needed. may repeat twice in 10 minutes. Coumadin 7.5 Mg Tabs (Warfarin sodium) ..... One tablet every other day, alternate with 5mg tablets Coumadin 5 Mg Tabs (Warfarin sodium) ..... Take one tablet every other day Metoprolol Tartrate 50 Mg Oral Tabs (Metoprolol tartrate) ..... One tablet twice daily Dofetilide 500 Mcg Oral Caps (Dofetilide) ..... One tab twice daily Aspirin 81 Mg Tabs (Aspirin) ..... One tab. daily Cassandrajonny Avilezberto [facility] Cardiology faxed 12/15 05/02 1353:His updated medication list for this problem includes: Lisinopril 2.5 Mg Tabs (Lisinopril) ..... One tab at bedtime Lasix 40 Mg Tabs (Furosemide) ..... Once daily or an extra 1/2 if needed Lanoxin 0.125 Mg Tabs (Digoxin) ..... 1 tablet by mouth daily Metoprolol Tartrate 50 Mg Oral Tabs (Metoprolol tartrate) ..... One tablet twice daily Dofetilide 500 Mcg Oral Caps (Dofetilide) ..... One tab twice daily Aspirin 81 Mg Tabs (Aspirin) ..... One tab. daily [facility] fax[facility] 01/01/17 1353 [facility] Card[facility] faxed 12/15 05/02 1353:Increased beta kayleigh dose. His updated medication list for this problem includes: Lisinopril 2.5 Mg Tabs (Lisinopril) ..... One tab at bedtime Nitrostat 0.4 Mg Subl (Nitroglycerin) ..... One tab. under tongue as needed. may repeat twice in 10 minutes. Coumadin 7.5 Mg Tabs (Warfarin sodium) ..... One tablet every other day, alternate with 5mg tablets Coumadin 5 Mg Tabs (Warfarin sodium) ..... Take one tablet every other day Metoprolol Tartrate 50 Mg Oral Tabs (Metoprolol tartrate) ..... One tablet twice daily Dofetilide 500 Mcg Oral Caps (Dofetilide) ..... One tab twice daily Magnesium 400 Mg Caps (Magnesium oxide) .... One tablet once a day Aspirin 81 Mg Tabs (Aspirin) ..... One tab. daily Cassandrajonny Crow [facility] EP faxed 07/09/16:Compliant with treatment. Hilda Quinteros MD EP faxed 07/09/16:Fl s updated medication list for this problem includes: Lisinopril 2.5 Mg Tabs (Lisinopril) ..... One tab at bedtime Lasix 40 Mg Tabs (Furosemide) ..... Once daily or an extra 1/2 if needed Lanoxin 0.125 Mg Tabs (Digoxin) ..... 1 tablet by mouth daily Metoprolol Tartrate 25 Mg Tabs (Metoprolol tartrate) ..... One tablet twice daily Tikosyn 500 Mcg Caps (Dofetilide) ..... Take one pill twice a day Aspirin 81 Mg Tabs (Aspirin) ..... One tab. daily Hilda Quinteros MD EP faxed 07/09/16:Cl ass 3 His updated medication list for this problem includes: Lisinopril 2.5 Mg Tabs (Lisinopril) ..... One tab at bedtime Lasix 40 Mg Tabs (Furosemide) ..... Once daily or an extra 1/2 if needed Lanoxin 0.125 Mg Tabs (Digoxin) ..... 1 tablet by mouth daily Metoprolol Tartrate 25 Mg Tabs (Metoprolol tartrate) ..... One tablet twice daily Tikosyn 500 Mcg Caps (Dofetilide) ..... Take one pill twice a day Aspirin 81 Mg Tabs (Aspirin) ..... One tab. daily Hilda Quinteros MD EP faxed 07/09/16:Fl s updated medication list for this problem includes: Coumadin 7.5 Mg Tabs (Warfarin sodium) ..... One tablet every other day, alternate with 5mg tablets Coumadin 5 Mg Tabs (Warfarin sodium) ..... Take one tablet every other day Metoprolol Tartrate 25 Mg Tabs (Metoprolol tartrate) ..... One tablet twice daily Tikosyn 500 Mcg Caps (Dofetilide) ..... Take one pill twice a day Aspirin 81 Mg Tabs (Aspirin) ..... One tab. daily Magnesium Oxide 400mg tablet .... twice a day Hilda Quinteros MD EP faxed 12/30/15 134 9: O rders: S NOMED-CT: [id number] Current Medications Documented ([facility]-[id number]) G lobal No Charge (CPT-27842) Hilda Quinteros MD EP: O rders: S NOMED-CT: [id number] Current Medications Documented ([facility]-[id number]) 9 9214 MOD Complex (CPT-06562) A BLATION w/ Anesthesia (*) Hilda Quinteros MD EP: H is updated medication list for this problem includes: Coumadin 5 Mg Tabs (Warfarin sodium) ..... Take one pill a day Lanoxin 0.125 Mg Tabs (Digoxin) ..... 1 tablet by mouth daily Metoprolol Tartrate 25 Mg Tabs (Metoprolol tartrate) ..... One half tab. twice daily Tikosyn 500 Mcg Caps (Dofetilide) ..... Take one pill twice a day Aspirin 81 Mg Tabs (Aspirin) ..... One tab. daily Hilda Quinteros MD EP: T he following medications were removed from the medication list: Lisinopril 2.5 Mg Tabs (Lisinopril) ..... One tab. daily His updated medication list for this problem includes: Coumadin 5 Mg Tabs (Warfarin sodium) ..... Take one pill a day Lasix 80 Mg Tabs (Furosemide) ..... 1 tab once daily pt takes an additional 1/2 tab as needed Lanoxin 0.125 Mg Tabs (Digoxin) ..... 1 tablet by mouth daily Metoprolol Tartrate 25 Mg Tabs (Metoprolol tartrate) ..... One half tab. twice daily Tikosyn 500 Mcg Caps (Dofetilide) ..... Take one pill twice a day Aspirin 81 Mg Tabs (Aspirin) ..... One tab. daily Orders: S TR - Adenosine (95166) S chedule Followup (*) Hilda Quinteros MD EP: T he following medications were removed from the medication list: Lisinopril 2.5 Mg Tabs (Lisinopril) ..... One tab. daily His updated medication list for this problem includes: Lasix 80 Mg Tabs (Furosemide) ..... 1 tab once daily pt takes an additional 1/2 tab as needed Lanoxin 0.125 Mg Tabs (Digoxin) ..... 1 tablet by mouth daily Metoprolol Tartrate 25 Mg Tabs (Metoprolol tartrate) ..... One half tab. twice daily Aspirin 81 Mg Tabs (Aspirin) ..... One tab. daily Orders: F VC - 24118 (67596) F - 05379 (51066) D O - 05700 (66969) Hilda Quinteros MD EP: T he following medications were removed from the medication list: Lisinopril 2.5 Mg Tabs (Lisinopril) ..... One tab. daily His updated medication list for this problem includes: Coumadin 5 Mg Tabs (Warfarin sodium) ..... Take one pill a day Metoprolol Tartrate 25 Mg Tabs (Metoprolol tartrate) ..... One half tab. twice daily Tikosyn 500 Mcg Caps (Dofetilide) ..... Take one pill twice a day Aspirin 81 Mg Tabs (Aspirin) ..... One tab. daily Hilda Quinteros MD EP: O rders: P rotime (CPT-68276) E KG (CPT-32963) 9 9215 HIGH Complex (CPT-17416) Hilda Quinteros MD EP Faxed 09/06/15 Hilda hall MD EP Faxed 09/06/15: T he following medications were removed from the medication list: Spironolactone 25 Mg Tabs (Spironolactone) ..... Take one pill a day His updated medication list for this problem includes: Coumadin 5 Mg Tabs (Warfarin sodium) ..... Take one pill a day Lasix 40 Mg Tabs (Furosemide) ..... 2 tabs in am 1 tab pm Lanoxin 0.125 Mg Tabs (Digoxin) ..... 1 tablet by mouth daily Metoprolol Tartrate 25 Mg Tabs (Metoprolol tartrate) ..... One tab. twice daily Tikosyn 500 Mcg Caps (Dofetilide) ..... Take one pill twice a day Aspirin 81 Mg Tabs (Aspirin) ..... One tab. daily Lisinopril 2.5 Mg Tabs (Lisinopril) ..... One tab. daily Hilda Quinteros MD EP Faxed 09/06/15:at riabrenton solorzanotter was documented H is updated medication list for this problem includes: Coumadin 5 Mg Tabs (Warfarin sodium) ..... Take one pill a day Lanoxin 0.125 Mg Tabs (Digoxin) ..... 1 tablet by mouth daily Metoprolol Tartrate 25 Mg Tabs (Metoprolol tartrate) ..... One tab. twice daily Tikosyn 500 Mcg Caps (Dofetilide) ..... Take one pill twice a day Aspirin 81 Mg Tabs (Aspirin) ..... One tab. daily Hilda Quinteros MD EP Faxed 09/06/15 Hilda hall MD EP f/u faxed 08/24/14 1343:worsening symptomsof tremor on current medication - will refer to neurologist as per patients request O rders: C T, Other: (CPT-75185) Hilda Quinteros MD EP f/u faxed 08/24/14 1343:no recent ICD therapies H is updated medication list for this problem includes: Spironolactone 25 Mg Tabs (Spironolactone) ..... Take one pill a day Coumadin 5 Mg Tabs (Warfarin sodium) ..... Take one pill a day Lasix 40 Mg Tabs (Furosemide) ..... 2 tabs in am 1 tab pm Metoprolol Tartrate 25 Mg Tabs (Metoprolol tartrate) ..... One tab. twice daily Tikosyn 500 Mcg Caps (Dofetilide) ..... Take one pill twice a day Aspirin 81 Mg Tabs (Aspirin) ..... One tab. daily Lisinopril 2.5 Mg Tabs (Lisinopril) ..... One tab. daily Hilda Quinteros MD EP f/u faxed 08/24/14 1343: H is updated medication list for this problem includes: Spironolactone 25 Mg Tabs (Spironolactone) ..... Take one pill a day Coumadin 5 Mg Tabs (Warfarin sodium) ..... Take one pill a day Lasix 40 Mg Tabs (Furosemide) ..... 2 tabs in am 1 tab pm Lanoxin 0.125 Mg Tabs (Digoxin) ..... 1 tablet by mouth daily Metoprolol Tartrate 25 Mg Tabs (Metoprolol tartrate) ..... One tab. twice daily Tikosyn 500 Mcg Caps (Dofetilide) ..... Take one pill twice a day Aspirin 81 Mg Tabs (Aspirin) ..... One tab. daily Orders: E KG (CPT-63420) S chedule Followup (*) Hilda Quinteros MD EP f/u faxed 08/24/14 1343: O rders: C omplete Echo (CPT-83725) Hilda Quinteros MD EP f/u faxed 08/24/14 1343: O rders: C arotid Duplex Bilateral (CPT-90533) Hilda Quinteros MD EP f/u faxed 08/24/14 1343:worsening symptoms on current medication. r efer to neurologist O rders: C T, Other: (CPT-77721) Hilda Quinteros MD EP f/u faxed 08/24/14 1343: H is updated medication list for this problem includes: Coumadin 5 Mg Tabs (Warfarin sodium) ..... Take one pill a day Lanoxin 0.125 Mg Tabs (Digoxin) ..... 1 tablet by mouth daily Metoprolol Tartrate 25 Mg Tabs (Metoprolol tartrate) ..... One tab. twice daily Tikosyn 500 Mcg Caps (Dofetilide) ..... Take one pill twice a day Aspirin 81 Mg Tabs (Aspirin) ..... One tab. daily Lisinopril 2.5 Mg Tabs (Lisinopril) ..... One tab. daily Hilda Quinteros MD EP f/u faxed 08/24/14 1343: H is updated medication list for this problem includes: Spironolactone 25 Mg Tabs (Spironolactone) ..... Take one pill a day Coumadin 5 Mg Tabs (Warfarin sodium) ..... Take one pill a day Lasix 40 Mg Tabs (Furosemide) ..... 2 tabs in am 1 tab pm Metoprolol Tartrate 25 Mg Tabs (Metoprolol tartrate) ..... One tab. twice daily Tikosyn 500 Mcg Caps (Dofetilide) ..... Take one pill twice a day Aspirin 81 Mg Tabs (Aspirin) ..... One tab. daily Lisinopril 2.5 Mg Tabs (Lisinopril) ..... One tab. daily Hilda Quinteros MD EP f/u faxed 08/24/14 1343: H is updated medication list for this problem includes: Spironolactone 25 Mg Tabs (Spironolactone) ..... Take one pill a day Coumadin 5 Mg Tabs (Warfarin sodium) ..... Take one pill a day Lasix 40 Mg Tabs (Furosemide) ..... 2 tabs in am 1 tab pm Lanoxin 0.125 Mg Tabs (Digoxin) ..... 1 tablet by mouth daily Metoprolol Tartrate 25 Mg Tabs (Metoprolol tartrate) ..... One tab. twice daily Tikosyn 500 Mcg Caps (Dofetilide) ..... Take one pill twice a day Aspirin 81 Mg Tabs (Aspirin) ..... One tab. daily Orders: E KG (CPT-66460) Hilda Quinteros MD Date Name LIPID PANEL TSH, free T4, total T3 CBC (INCLUDES DIFF/P LT) COMPREHENSIVE METABO LIC PANEL, W/EGFR Carotid Duplex Bilat eral Complete Echo LIPID PANEL CBC (INCLUDES DIFF/P LT) PROBNP, N TERMINAL COMPREHENSIVE METABO LIC PANEL, W/EGFR PARTIAL THROMBOPLAST IN TIME, ACTIVATED URINALYSIS, COMPLETE W/REFLEX TO CULTURE COMPREHENSIVE METABO LIC PANEL W/EGFR PROTHROMBIN TIME WIT H INR CBC (INCLUDES DIFF/P LT) Complete Echo LIPID PANEL MAGNESIUM CBC (INCLUDES DIFF/P LT) COMPREHENSIVE METABO LIC PANEL, W/EGFR CBC (INCLUDES DIFF/P LT) URIC ACID HEMOGLOBIN A1c LIPID PANEL HEPATIC FUNCTION ROB EL COMPREHENSIVE METABO LIC PANEL, W/EGFR Abdominal US Complete Echo PROTHROMBIN TIME WIT H INR MAGNESIUM Cardioversion - GC TSH, free T4, total T3 CBC (INCLUDES DIFF/P LT) HEMOGLOBIN A1c LIPID PANEL COMPREHENSIVE METABO LIC PANEL, W/EGFR Carotid Duplex Bilat eral PARTIAL THROMBOPLAST IN TIME, ACTIVATED PARTIAL THROMBOPLAST IN TIME, ACTIVATED PROTHROMBIN TIME WIT H INR COMPREHENSIVE METABO LIC PANEL W/EGFR URINALYSIS, COMPLETE W/REFLEX TO CULTURE CBC (INCLUDES DIFF/P LT) Complete Echo Aorta Duplex Ultraso und DLCO - 81162 FRC - 28421 FVC - 01330 MAGNESIUM PROBNP, N TERMINAL CBC (H/H, RBC, INDIC ES, WBC, PLT) COMPREHENSIVE METABO LIC PANEL, W/EGFR Complete Echo Aorta Duplex Ultraso und Arterial Duplex Bi-L ower EX MAGNESIUM CBC (H/H, RBC, INDIC ES, WBC, PLT) LIPID PANEL COMPREHENSIVE METABO LIC PANEL, W/EGFR DLCO - 92666 FRC - 58882 FVC - 41686 X-Ray, Chest - Routi ne PROBNP, N TERMINAL CBC (INCLUDES DIFF/P LT) COMPREHENSIVE METABO LIC PANEL, W/EGFR Complete Echo PROTHROMBIN TIME WIT H INR PROTHROMBIN TIME WIT H INR CBC (INCLUDES DIFF/P LT) LIPID PANEL BASIC METABOLIC PANE L W/EGFR Cardiac Cath - Left - [facility] Stress Regadenoson DIGOXIN MAGNESIUM THYROID PANEL WITH T SH, 3RD GENERATION LIPID PANEL CBC (H/H, RBC, INDIC ES, WBC, PLT) COMPREHENSIVE METABO LIC PANEL, W/EGFR PROTHROMBIN TIME WIT H INR LIPID PANEL THYROID PANEL WITH T SH, 3RD GENERATION COMPREHENSIVE METABO LIC PANEL, W/EGFR CBC (H/H, RBC, INDIC ES, WBC, PLT) Sleep Study Home BASIC METABOLIC PANE L W/EGFR PROTHROMBIN TIME WIT H INR MAGNESIUM LINK/CV - GC DLCO - 75467 FRC - 54698 FVC - 10769 Venous Doppler Unila hema LUE Bi-V AICD Implant - CNE CBC (INCLUDES DIFF/P LT) COMPREHENSIVE METABO LIC PANEL W/EGFR PARTIAL THROMBOPLAST IN TIME, ACTIVATED PROTHROMBIN TIME WIT H INR CBC (INCLUDES DIFF/P LT) BASIC METABOLIC PANE L W/EGFR Arterial Duplex Bi-L ower EX Venous Doppler Bilat eral LE ABLATION w/ Anesthes ia Kidney Ultrasound STR - Adenosine DLCO - 10624 FRC - 04494 FVC - 12903 DIGOXIN MAGNESIUM BASIC METABOLIC PANE L W/EGFR PROTHROMBIN TIME WIT H INR DLCO - 17198 FRC - 48973 FVC - 01517 Carotid Duplex Bilat eral Complete Echo CT, Other: AICD Dual Chamber w/ Reprogramming Spirometry Spirometry Spirometry AICD Dual Chamber w/ Reprogramming ABLATION w/ Anesthes ia HISTORY OF PROCEDURES Procedure Date Procedure Name Provider Procedure Notes S tatus EKG Hilda bain MD completed Jerry Regalado MD complete d Jerry Gonzalez MD completed Jerry Daley MD complet ed Jerry bain MD completed Jerry bain MD completed Protime Hilda bain MD completed Protime Eric Parson MD completed Protime Hilda bain MD completed EKG Hilda bain MD completed Protime Hilda bain MD completed Protconnie Gannon MD completed Protime Hilda bain MD completed Protconnie Regalado MD complete d Protime Maksim Fry MD completed Protime Hilda bain MD completed EKG Hilda bain MD completed Jerry Gannon MD completed EKG Hilda bain MD completed Jerry Gannon MD completed Protime Hilda bain MD completed EKG Hilda bain MD completed Protime Hilda bain MD completed Jerry bain MD completed Protime Hilda bain MD completed Jerry bain MD completed Protconnie Gannon MD completed Jerry Gannon MD completed Protime Eric Parson MD completed Protime Michael Regalado MD complete d EKG Hilda bain MD completed Protime Hilda bain MD completed Jerry Gannon MD completed EKG Hilda bain MD completed Jerry Gannon MD completed Jerry Fry MD completed Jerry Fry MD completed Jerry Regalado MD complete d Jerry Regalado MD complete d EKG Hilda bain MD completed Jerry bain MD completed Jerry bain MD completed Jerry bain MD completed Spirometry Hilda bain MD completed FVC / MVV with bronchodilator - 57306 Hilda Quinteros MD completed FRC - 85027 Hilda bain MD completed SpO2 w/o 6min walk/titration Hilda Quinteros MD completed SVC - 25452 Hilda bain MD completed DLCO - 66818 Hilda bain MD completed EKG Hilda bain MD completed EKG Hilda bain MD completed EKG Hilda bain MD completed FVC / MVV with bronchodilator - 62839 Hilda Quinteros MD completed BLOOD COUNT HEMOGLOBIN Hilda tirado MD completed FRC - 56033 Hilda bain MD completed SpO2 w/o 6min walk/titration Hilda Quinteros MD completed DLCO - 28825 Hilda bain MD completed EKG Hilda bain MD completed Protime Hilda bain MD completed Schedule Followup Hilda hall MD In six months completed EKG Hilda bain MD completed ICM Interrogation, Remote (Prof) Hilda Quinteros MD INTERROGATION EVAL REMOTE </30 D CV MNTR SYS completed ICM Interrogation, Remote (Tech) Hilda Quinteros MD INTERROGATION EVAL REMOTE </30 D TECH REVIEW completed Schedule Followup Hilda hall MD see note completed ICM Interrogation, Remote (Prof) Hilda Quinteros MD INTERROGATION EVAL REMOTE </30 D CV MNTR SYS completed ICM Interrogation, Remote (Tech) Hilda Quinteros MD INTERROGATION EVAL REMOTE </30 D TECH REVIEW completed ICM Interrogation, Remote (Prof) Hilda Quinteros MD INTERROGATION EVAL REMOTE </30 D CV MNTR SYS completed AICD Interrogation, Remote (Tech) Hilda Quinteros MD INTERROGATION REMOTE </90 D BRILLIANDEER LOOPER REVIEW completed AICD Interrogation, Remote (Prof) Hilda Quinteros MD INTERROGATION EVAL REMOTE </90 D 1/2/> LD CVDFB completed Regadenoson, 4 units ulius Frederic mccarty MD completed Cardiolite, 2 units Saulius Edilson horton MD completed SPECT Images Maksim Fry MD complet ed Stress EKG Maksim Fry MD completed ICM Interrogation, Remote (Prof) Hilda Quinteros MD INTERROGATION EVAL REMOTE </30 D CV MNTR SYS completed ICM Interrogation, Remote (Tech) Hilda Quinteros MD INTERROGATION EVAL REMOTE </30 D TECH REVIEW completed Schedule Followup Hilda hall MD in 6 mo completed EKG Hilda bain MD completed ICM Interrogation, Remote (Prof) ulius Lilli ESCOBAR INTERROGATION EVAL REMOTE </30 D CV MNTR SYS completed ICM Interrogation, Remote (Tech) Hilda Quinteros MD INTERROGATION EVAL REMOTE </30 D TECH REVIEW completed ICM Interrogation, Remote (Prof) ulius Lilli ESCOBAR INTERROGATION EVAL REMOTE </30 D CV MNTR SYS completed AICD Interrogation, Remote (Tech) Hilda Quinteros MD INTERROGATION REMOTE </90 D BRILLIANDEER LOOPER REVIEW completed AICD Interrogation, Remote (Prof) Saulius Kalvaitis MD INTERROGATION EVAL REMOTE </90 D 1/2/> LD CVDFB completed ICM Interrogation, Remote (Prof) Saulius Kalvaitis MD INTERROGATION EVAL REMOTE </30 D CV MNTR SYS completed ICM Interrogation, Remote (Tech) Saulius Kalvaitis MD INTERROGATION EVAL REMOTE </30 D TECH REVIEW completed ICM Interrogation, Remote (Prof) Saulius Kalvaitis MD INTERROGATION EVAL REMOTE </30 D CV MNTR SYS completed ICM Interrogation, Remote (Tech) Saulius Kalvaitis MD INTERROGATION EVAL REMOTE </30 D TECH REVIEW completed Schedule Followup Hilda hall MD in 1 yr completed EKG ulius Janette bain MD completed ICM Interrogation, Remote (Prof) Saulius Kalvaitis MD INTERROGATION EVAL REMOTE </30 D CV MNTR SYS completed ICM Interrogation, Remote (Tech) Saulius Kalvaitis MD INTERROGATION EVAL REMOTE </30 D TECH REVIEW completed ICM Interrogation, Remote (Prof) Saulius Kalvaitis MD INTERROGATION EVAL REMOTE </30 D CV MNTR SYS completed AICD Interrogation, Remote (Tech) Saulius Kalvaitis MD INTERROGATION REMOTE </90 D BRILLIANDEER LOOPER REVIEW completed AICD Interrogation, Remote (Prof) Saulius Kalvaitis MD INTERROGATION EVAL REMOTE </90 D 1/2/> LD CVDFB completed ICM Interrogation, Remote (Prof) Saulius Kalvaitis MD INTERROGATION EVAL REMOTE </30 D CV MNTR SYS completed ICM Interrogation, Remote (Tech) Saulius Kalvaitis MD INTERROGATION EVAL REMOTE </30 D TECH REVIEW completed ICM Interrogation, Remote (Prof) Saulius Kalvaitis MD INTERROGATION EVAL REMOTE </30 D CV MNTR SYS completed ICM Interrogation, Remote (Tech) Saulius Kalvaitis MD INTERROGATION EVAL REMOTE </30 D TECH REVIEW completed ICM Interrogation, Remote (Prof) Saulius Kalvaitis MD INTERROGATION EVAL REMOTE </30 D CV MNTR SYS completed ICM Interrogation, Remote (Tech) Saulius Kalvaitis MD INTERROGATION EVAL REMOTE </30 D TECH REVIEW completed ICM Interrogation, Remote (Prof) Saulius Kalvaitis MD INTERROGATION EVAL REMOTE </30 D CV MNTR SYS completed ICM Interrogation, Remote (Tech) Saulius Kalvaitis MD INTERROGATION EVAL REMOTE </30 D TECH REVIEW completed ICM Interrogation, Remote (Prof) Saulius Kalvaitis MD INTERROGATION EVAL REMOTE </30 D CV MNTR SYS completed ICM Interrogation, Remote (Tech) Saulius Kalvaitis MD INTERROGATION EVAL REMOTE </30 D TECH REVIEW completed ICM Interrogation, Remote (Prof) Saulius Kalvaitis MD INTERROGATION EVAL REMOTE </30 D CV MNTR SYS completed ICM Interrogation, Remote (Tech) Saulius Kalvaitis MD INTERROGATION EVAL REMOTE </30 D TECH REVIEW completed ICM Interrogation, Remote (Prof) Saulius Kalvaitis MD INTERROGATION EVAL REMOTE </30 D CV MNTR SYS completed AICD Interrogation, Remote (Tech) Saulius Kalvaitis MD INTERROGATION REMOTE </90 D BRILLIANDEER LOOPER REVIEW completed AICD Interrogation, Remote (Prof) Saulius Kalvaitis MD INTERROGATION EVAL REMOTE </90 D 1/2/> LD CVDFB completed ICM Interrogation, Remote (Prof) Saulius Kalvaitis MD INTERROGATION EVAL REMOTE </30 D CV MNTR SYS completed ICM Interrogation, Remote (Tech) Saulius Kalvaitis MD INTERROGATION EVAL REMOTE </30 D TECH REVIEW completed EKG Hilda bain MD completed SNOMED-CT: [id number] Current Medications Documented Hilda Quinteros MD completed ICM Interrogation, Remote (Prof) Hilda Quinteros MD INTERROGATION EVAL REMOTE </30 D CV MNTR SYS completed ICM Interrogation, Remote (Tech) Hilda Quinteros MD INTERROGATION EVAL REMOTE </30 D TECH REVIEW completed ICM Interrogation, Remote (Prof) Saulius Weaveritis MD INTERROGATION EVAL REMOTE </30 D CV MNTR SYS completed AICD Interrogation, Remote (Tech) Hilda Quinteros MD INTERROGATION REMOTE </90 D BRILLIANDEER LOOPER REVIEW completed AICD Interrogation, Remote (Prof) Saulius Weaveritis INTERROGATION EVAL REMOTE </90 D 1/2/> LD CVDFB completed ICM Interrogation, Remote (Prof) Saulius Quinteros MD INTERROGATION EVAL REMOTE </30 D CV MNTR SYS completed ICM Interrogation, Remote (Tech) Hilda Quinteros MD INTERROGATION EVAL REMOTE </30 D TECH REVIEW completed ICM Interrogation, Remote (Prof) Samatthew Quitneros MD INTERROGATION EVAL REMOTE </30 D CV MNTR SYS completed ICM Interrogation, Remote (Tech) Hilda Quinteros MD INTERROGATION EVAL REMOTE </30 D TECH REVIEW completed FVC / MVV with bronchodilator - 46882 Hilda Quinteros MD completed BLOOD COUNT HEMOGLOBIN Hilda tirado MD completed FRC - 72716 Hilda bain MD completed SpO2 - 49254 Hilda bain MD completed DLCO - 31572 Hilda bain MD completed EKG Hilda bain MD completed SNOMED-CT: [id number] Current Medications Documented Hilda Quinteros MD completed Schedule ICD Check Hilda villanueva MD 1 month completed EKG Hilda bain MD completed SNOMED-CT: [id number] Current Medications Documented Saulius Lilli ESCOBAR completed ICM Interrogation, Remote (Prof) Saulius Kalvaitis MD INTERROGATION EVAL REMOTE </30 D CV MNTR SYS completed ICM Interrogation, Remote (Tech) Saulius Kalvaitis MD INTERROGATION EVAL REMOTE </30 D TECH REVIEW completed ICM Interrogation, Remote (Prof) Saulius Kalvaitis MD INTERROGATION EVAL REMOTE </30 D CV MNTR SYS completed AICD Interrogation, Remote (Tech) Saulius Fredericvaitis MD INTERROGATION REMOTE </90 D BRILLIANDEER LOOPER REVIEW completed AICD Interrogation, Remote (Prof) Saulius Kalvaitis MD INTERROGATION EVAL REMOTE </90 D 1/2/> LD CVDFB completed ICM Interrogation, Remote (Prof) Saulius Kalvaitis MD INTERROGATION EVAL REMOTE </30 D CV MNTR SYS completed ICM Interrogation, Remote (Tech) Saulius Kalvaitis MD INTERROGATION EVAL REMOTE </30 D TECH REVIEW completed ICM Interrogation, Remote (Prof) Saulius Kalvaitis MD INTERROGATION EVAL REMOTE </30 D CV MNTR SYS completed ICM Interrogation, Remote (Tech) Saulius Fredericvaitis MD INTERROGATION EVAL REMOTE </30 D TECH REVIEW completed ICM Interrogation, Remote (Prof) Saulius Megitis MD INTERROGATION EVAL REMOTE </30 D CV MNTR SYS completed AICD Interrogation, Remote (Tech) Saulius Weaveritis MD INTERROGATION REMOTE </90 D BRILLIANDEER LOOPER REVIEW completed AICD Interrogation, Remote (Prof) Saulius Kalvaitis INTERROGATION EVAL REMOTE </90 D 1/2/> LD CVDFB completed BLOOD COUNT HEMOGLOBIN Hilda tirado MD completed FVC - 46541 Hilda bain MD completed FRC - 03295 Hilda bain MD completed DLCO - 99263 Hilda bain MD completed Schedule ICD Check Hilda villanueva MD completed EKG Hilda bain MD completed SNOMED-CT: [id number] Current Medications Documented Hilda Quinteros MD completed ICM Interrogation, Remote (Prof) Hilda Quinteros MD INTERROGATION EVAL REMOTE </30 D CV MNTR SYS completed ICM Interrogation, Remote (Tech) Hilda Quinteros MD INTERROGATION EVAL REMOTE </30 D TECH REVIEW completed ICM Interrogation, Remote (Prof) Saulius Lilli ESCOBAR INTERROGATION EVAL REMOTE </30 D CV MNTR SYS completed ICM Interrogation, Remote (Tech) Hilda Quinteros MD INTERROGATION EVAL REMOTE </30 D TECH REVIEW completed ICM Interrogation, Remote (Prof) Hilda Weaveritis INTERROGATION EVAL REMOTE </30 D CV MNTR SYS completed AICD Interrogation, Remote (Tech) Hilda Quinteros MD INTERROGATION REMOTE </90 D BRILLIANDEER LOOPER REVIEW completed AICD Interrogation, Remote (Prof) Samatthew Quinteros MD INTERROGATION EVAL REMOTE </90 D 1/2/> LD CVDFB completed ICM Interrogation, Remote (Prof) Saulius Lilli ESCOBAR INTERROGATION EVAL REMOTE </30 D CV MNTR SYS completed ICM Interrogation, Remote (Tech) Hilda Quinteros MD INTERROGATION EVAL REMOTE </30 D TECH REVIEW completed ICM Interrogation, Remote (Prof) Samatthew Quinteros MD INTERROGATION EVAL REMOTE </30 D CV MNTR SYS completed ICM Interrogation, Remote (Tech) Hilda Quinteros MD INTERROGATION EVAL REMOTE </30 D TECH REVIEW completed EKG Hilda bain MD completed SNOMED-CT: [id number] Smoking Cessation Counseling Hilda Quinteros MD completed SNOMED-CT: [id number] Current Medications Documented Hilda Quinteros MD completed SNOMED-CT: [id number] Smoking Cessation Counseling Hilda Quinteros MD completed EKG Hilda bain MD completed SNOMED-CT: [id number] Current Medications Documented Hilda Quinteros MD completed ICM Interrogation, Remote (Prof) Hidla Quinteros MD INTERROGATION EVAL REMOTE </30 D CV MNTR SYS completed AICD Interrogation, Remote (Tech) Hilda Quinteros MD INTERROGATION REMOTE </90 D BRILLIANDEER LOOPER REVIEW completed AICD Interrogation, Remote (Prof) Hilda Quinteros MD INTERROGATION EVAL REMOTE </90 D 1/2/> LD CVDFB completed Jerry bain MD completed Jerry bain MD completed SNOMED-CT: 548002146 Smoking Cessation Counseling Hilda Quinteros MD completed EKG Hilda bain MD completed SNOMED-CT: [id number] Current Medications Documented Hilda Quinteros MD completed Jerry bain MD completed ICM Interrogation, Remote (Prof) Hilda Quinteros MD INTERROGATION EVAL REMOTE </30 D CV MNTR SYS completed ICM Interrogation, Remote (Tech) Hilda Quinteros MD INTERROGATION EVAL REMOTE </30 D TECH REVIEW completed Jerry bain MD completed SNOMED-CT: 102163929 Smoking Cessation Counseling Hilda Quinteros MD completed Schedule Followup Hilda hall MD 2 weeks completed EKG Hilda bain MD completed SNOMED-CT: 207740899259998 Current Medications Documented Hilda Quinteros MD completed Jerry bain MD completed Jerry bain MD completed Jerry bain MD completed SNOMED-CT: 534961469 Smoking Cessation Counseling Hilda Quinteros MD completed SNOMED-CT: [id number] Current Medications Documented Hilda Quinteros MD completed EKG Hilda bain MD completed Ultrasound, retroperitoneal, complete Hilda Quinteros MD completed Stress EKG Oracio Daley MD complet ed Regadenoson, 4 units ulius Frederic vakay ESCOBAR completed Cardiolite, 2 units Saulius Kalv aittom ESCOBAR completed SPECT Images Oracio Daley MD compl eted BLOOD COUNT HEMOGLOBIN Hilda tirado MD completed FVC - 74491 Hilda bain MD completed FRC - 27756 Hilda bain MD completed DLCO - 99682 Hilda bain MD completed ICM Interrogation, Remote (Prof) Hilda Quinteros MD INTERROGATION EVAL REMOTE </30 D CV MNTR SYS completed ICM Interrogation, Remote (Tech) Hilda Quinteros MD INTERROGATION EVAL REMOTE </30 D TECH REVIEW completed Schedule Followup Hilda hall MD fu with SK in 2 weeks completed EKG Hilda bain MD completed Jerry bain MD completed SNOMED-CT: [id number] Current Medications Documented Hilda Quinteros MD completed Jerry bain MD completed Jerry bain MD completed Jerry bain MD completed SNOMED-CT: 533251400129540 Current Medications Documented Hilda Quinteros MD completed SNOMED-CT: 916363109 Smoking Cessation Counseling Hilda Quinteros MD completed EKG Hilda bain MD completed SNOMED-CT: 969401983685166 Current Medications Documented Hilda Quinteros MD completed ICM Interrogation, Remote (Prof) Saulius Kalvaitis MD INTERROGATION EVAL REMOTE </30 D CV MNTR SYS completed AICD Interrogation, Remote (Tech) Saulius Kalvaitis MD INTERROGATION REMOTE </90 D BRILLIANDEER LOOPER REVIEW completed AICD Interrogation, Remote (Prof) Saulius Kalvaitis MD INTERROGATION EVAL REMOTE </90 D 1/2/> LD CVDFB completed ICM Interrogation, Remote (Prof) Saulius Kalvaitis MD INTERROGATION EVAL REMOTE </30 D CV MNTR SYS completed ICM Interrogation, Remote (Tech) Saulius Kalvaitis MD INTERROGATION EVAL REMOTE </30 D TECH REVIEW completed ICM Interrogation, Remote (Prof) Saulius Kalvaitis MD INTERROGATION EVAL REMOTE </30 D CV MNTR SYS completed ICM Interrogation, Remote (Tech) Saulius Kalvaitis MD INTERROGATION EVAL REMOTE </30 D TECH REVIEW completed ICM Interrogation, Remote (Prof) Saulius Kalvaitis MD INTERROGATION EVAL REMOTE </30 D CV MNTR SYS completed AICD Interrogation, Remote (Tech) Saulius Kalvaitis MD INTERROGATION REMOTE </90 D BRILLIANDEER LOOPER REVIEW completed AICD Interrogation, Remote (Prof) Saulius Kalvaitis MD INTERROGATION EVAL REMOTE </90 D 1/2/> LD CVDFB completed ICM Interrogation, Remote (Prof) Saulius Kalvaitis MD INTERROGATION EVAL REMOTE </30 D CV MNTR SYS completed ICM Interrogation, Remote (Tech) Saulius Kalvaitis MD INTERROGATION EVAL REMOTE </30 D TECH REVIEW completed ICM Interrogation, Remote (Prof) Saulius Kalvaitis MD INTERROGATION EVAL REMOTE </30 D CV MNTR SYS completed ICM Interrogation, Remote (Tech) Saulius Kalvaitis MD INTERROGATION EVAL REMOTE </30 D TECH REVIEW completed ICM Interrogation, Remote (Prof) Saulius Kalvaitis MD INTERROGATION EVAL REMOTE </30 D CV MNTR SYS completed AICD Interrogation, Remote (Tech) Saulius Kalvaitis MD INTERROGATION REMOTE </90 D BRILLIANDEER LOOPER REVIEW completed AICD Interrogation, Remote (Prof) Saulius Kalvaitis MD INTERROGATION EVAL REMOTE </90 D 1/2/> LD CVDFB completed ICM Interrogation, Remote (Prof) Saulius Kalvaitis MD INTERROGATION EVAL REMOTE </30 D CV MNTR SYS completed ICM Interrogation, Remote (Tech) Saulius Kalvaitis MD INTERROGATION EVAL REMOTE </30 D TECH REVIEW completed ICM Interrogation, Remote (Prof) Saulius Kalvaitis MD INTERROGATION EVAL REMOTE </30 D CV MNTR SYS completed ICM Interrogation, Remote (Tech) Saulius Kalvaitis MD INTERROGATION EVAL REMOTE </30 D TECH REVIEW completed ICM Interrogation, Remote (Prof) Saulius Kalvaitis MD INTERROGATION EVAL REMOTE </30 D CV MNTR SYS completed AICD Interrogation, Remote (Tech) Saulius Kalvaitis MD INTERROGATION REMOTE </90 D BRILLIANDEER LOOPER REVIEW completed AICD Interrogation, Remote (Prof) Saulius Kalvaitis MD INTERROGATION EVAL REMOTE </90 D 1/2/> LD CVDFB completed Schedule Followup Hilda hall MD Please schedule a follow-up appointment with me in 1 year. completed EKG Hilda bain MD completed ICM Interrogation, Remote (Prof) ulius Lilli ESCOBAR INTERROGATION EVAL REMOTE </30 D CV MNTR SYS completed ICM Interrogation, Remote (Tech) Saulius Kalvaitis MD INTERROGATION EVAL REMOTE </30 D TECH REVIEW completed EKG Hilda bain MD completed ICM Interrogation, Remote (Prof) Saulius Kalvaitis MD INTERROGATION EVAL REMOTE </30 D CV MNTR SYS completed ICM Interrogation, Remote (Tech) Saulius Kalvaitis MD INTERROGATION EVAL REMOTE </30 D TECH REVIEW completed ICM Interrogation, Remote (Prof) Saulius Kalvaitis MD INTERROGATION EVAL REMOTE </30 D CV MNTR SYS completed AICD Interrogation, Remote (Tech) Saulius Kalvaitis MD INTERROGATION REMOTE </90 D BRILLIANDEER LOOPER REVIEW completed AICD Interrogation, Remote (Prof) Saulius Kalvaitis MD INTERROGATION EVAL REMOTE </90 D 1/2/> LD CVDFB completed ICM Interrogation, Remote (Prof) Saulius Kalvaitis MD INTERROGATION EVAL REMOTE </30 D CV MNTR SYS completed ICM Interrogation, Remote (Tech) Saulius Kalvaitis MD INTERROGATION EVAL REMOTE </30 D TECH REVIEW completed ICM Interrogation, Remote (Prof) Saulius Kalvaitis MD INTERROGATION EVAL REMOTE </30 D CV MNTR SYS completed ICM Interrogation, Remote (Tech) Saulius Kalvaitis MD INTERROGATION EVAL REMOTE </30 D TECH REVIEW completed ICM Interrogation, Remote (Prof) Saulius Kalvaitis MD INTERROGATION EVAL REMOTE </30 D CV MNTR SYS completed AICD Interrogation, Remote (Tech) Saulius Kalvaitis MD INTERROGATION REMOTE </90 D BRILLIANDEER LOOPER REVIEW completed AICD Interrogation, Remote (Prof) Saulius Kalvaitis MD INTERROGATION EVAL REMOTE </90 D 1/2/> LD CVDFB completed ICM Interrogation, Remote (Prof) Saulius Kalvaitis MD INTERROGATION EVAL REMOTE </30 D CV MNTR SYS completed ICM Interrogation, Remote (Tech) Saulius Kalvaitis MD INTERROGATION EVAL REMOTE </30 D TECH REVIEW completed ICM Interrogation, Remote (Prof) Saulius Kalvaitis MD INTERROGATION EVAL REMOTE </30 D CV MNTR SYS completed ICM Interrogation, Remote (Tech) Saulius Kalvaitis MD INTERROGATION EVAL REMOTE </30 D TECH REVIEW completed AICD Interrogation, Remote (Tech) Saulius Kalvaitis MD INTERROGATION REMOTE </90 D BRILLIANDEER LOOPER REVIEW completed AICD Interrogation, Remote (Prof) Saulius Kalvaitis MD INTERROGATION EVAL REMOTE </90 D 1/2/> LD CVDFB completed Schedule Followup Hilda hall MD fu with Dr. quinteros in 1 year completed EKG Hilda bain MD completed ICM Interrogation, Remote (Prof) Saulius Kalvaitis MD INTERROGATION EVAL REMOTE </30 D CV MNTR SYS completed ICM Interrogation, Remote (Tech) Saulius Kalvaitis MD INTERROGATION EVAL REMOTE </30 D TECH REVIEW completed ICM Interrogation, Remote (Prof) Saulius Kalvaitis MD INTERROGATION EVAL REMOTE </30 D CV MNTR SYS completed ICM Interrogation, Remote (Tech) Saulius Kalvaitis MD INTERROGATION EVAL REMOTE </30 D TECH REVIEW completed ICM Interrogation, Remote (Prof) Saulius Kalvaitis MD INTERROGATION EVAL REMOTE </30 D CV MNTR SYS completed AICD Interrogation, Remote (Tech) Saulius Kalvaitis MD INTERROGATION REMOTE </90 D BRILLIANDEER LOOPER REVIEW completed AICD Interrogation, Remote (Prof) Saulius Kalvaitis MD INTERROGATION EVAL REMOTE </90 D 1/2/> LD CVDFB completed ICM Interrogation, Remote (Prof) Saulius Kalvaitis MD INTERROGATION EVAL REMOTE </30 D CV MNTR SYS completed ICM Interrogation, Remote (Tech) Saulius Kalvaitis MD INTERROGATION EVAL REMOTE </30 D TECH REVIEW completed ICM Interrogation, Remote (Prof) Saulius Kalvaitis MD INTERROGATION EVAL REMOTE </30 D CV MNTR SYS completed ICM Interrogation, Remote (Tech) Saulius Kalvaitis MD INTERROGATION EVAL REMOTE </30 D TECH REVIEW completed Schedule Followup Hilda hall MD in 6 months with SK completed EKG Hilda bain MD completed Schedule Followup Hilda hall MD fu with DtrVanessa Varghese only completed EKG Hilda bain MD completed Schedule ICD Check Hilda villanueva MD fu in 4 weeks completed Schedule Followup Hilda hall MD fu in 4 weeks completed EKG Hilda bain MD completed TI, OPTIVOL, CHF Interrogation (Office) Hilda Quinteros MD INTERROGATION EVAL F2F IMPLANTABLE CV MNTR SYS completed AICD Programming (Du al Lead) Hilda Quinteros MD PROGRM EVAL IMPLANTABLE IN PRSN DUAL L CARD/DFB completed EKG Hilda bain MD completed
--- OUTSIDE RECORDS SUMMARY | 2024-12-16 11:31 | XMS_ITS | Referral Summary ---
Author Organization [facility] Address [address] [place] [address] Care Team Providers Care Arabic Teacher Name Role Phone Suzi Mitchell MD Primary [...] (03/05/2022): Added automatically from request for surgery [id number] Degeneration of intervertebral disc 01/18/2021 Primary localized [...] very low and wound not plan on snf abx at this time. We will follow culture results from his hematoma. If these are positive, our plan will likely change. - ID will continue to follow peripherally while in house- please call with questions or concerns. Primary osteoarthritis of right hip 02/18/2019 Overview (02/18/2019): Added automatically from request for surgery [id number] Arteriosclerosis of coronary artery 01/20/2019 Chest pain [...] SARS-CoV-2 Monovalent Vaccination (12+ Yrs) PURPLE 01/03/2022,06/19/2021,12/08/2020,2020 Social History Tobacco Use Types Packs/Day Years Used Date Smoking Tobacco: Former Cigarettes Q uit: 1976 Pipe Cigars Smokeless Tobacco: Never Comments:1970 Alcohol [...] on file Legal Sex Male 3:24 AM [employer] Gender Identity Not on file Sexual Orientation Not on file Last Filed Vital Signs Vital Sign Reading [...] 04/20/2022 11:15 AM CDT Plan of Treatment Not on file Medical Devices Implanted Type Area Gear Machine Operator General Device Identifier Shelf Expiration Date Model / Serial / Lot Icd Left: Chest [employer] [id number] 56mm Limit 4 Hole Hip F Hemisphere Offset Shell Acetabular - [id number] Implanted:Qty: 1 on 03/25/2019 by Len Colon MD at [facility] Right: Hip [employer] [id number] 09/17/2028 [id number] / / [id number] [employer] [id number] Trilogy 6.5mm 25mm Self Tap Screw Bone - [id number] Implanted:Qty: 1 on 03/25/2019 by Len Colon MD at [facility] Right: Hip [employer] [id number] 07/16/2028 [id number] / / [id number] [employer] [id number] Trilogy 6.5mm 20mm Self Tap Screw Bone - [id number] Implanted:Qty: 1 on 03/25/2019 by Len Colon MD at [facility] Right: Hip [employer] [id number] 08/15/2028 [id number] / / [id number] [employer] [id number] G7 44mm 2 Mobility Hip F Liner Acetabular - [id number] Implanted:Qty: 1 on 03/25/2019 by Len Colon MD at [facility] Right: Hip [employer] [id number] 01/16/2029 [id number] / / [id number] [employer] [id number] Taperloc 142mm Type 1 Press Fit Reduce Hip 133d 11 High Offset - [id number] Implanted:Qty: 1 on 03/25/2019 by Len Colon MD at [facility] Right: Hip [employer] 09/22/2028 [id number] / / [id number] [employer] [id number] Active Articulation 44mm Bearing Hip Arcomxl Sterile 28mm Modular - [id number] Implanted:Qty: 1 on 03/25/2019 by Len Colon MD at [facility] Right: Hip [employer] [id number] 01/20/2024 [id number] / / [id number] [employer] [id number] 28mm Modular Hip Standard Head Femoral Biolox Delta - [id number] Implanted:Qty: 1 on 03/25/2019 by Len Colon MD at [facility] Right: Hip [employer] 08/13/2028 [id number] / / [id number] Insurance [facility] MEDICARE ADVANTAGE MEDICARE FORMERLY [facility] MEDICARE FORMERLY [facility] UHC MEDICARE AD[facility]ANT[facility] Address: [address] [address] [place] [address] UHC MEDICARE ADVANTAGE [facility] Address: [address] [address] [place] [address] Advance Directives For more information, please contact: [phone] * Full Code (Latest Code Status on File) Date Activated Date Inactivated Comments 03/25/2019 6:35 PM 04/06/2019 7:49 PM Care Teams Arabic Teacher Relationship Specialty Start Date End Date Suzi Mitchell MD [address] [facility] [address] [place] [address] PCP - General Family Medicine 04/17/22
--- OUTSIDE RECORDS SUMMARY | 2024-12-16 11:31 | XMS_ITS | Continuity of Care Document ---
Author Name [facility] Organization [facility] Care Team Providers Care Sleeve Machine Tender Name Role Phone [facility] Unavailable Unavailable Problems Combined list of problems from Department of Defense and [facility] Affairs facilities. It does not include entries that were removed or entered in error. Problem Status Onset Date Problem Type Date of Resolution Comments Source Hypertrophic cardiomyopathy Active 5 Condition Oct 27, 2004 Entered By: MAGAN HOUSE Comment: Strong Fam Hx of SCD [facility] Anxiety * (ICD-9-CM 300.00/300.09) Active Condition [facility] APNEA Active Condition [facility] Atrial Fibrillation * (ICD-9-CM 427.31) Active Condition [facility] Diabetes * (ICD-9-CM 250.00) Active Condition [facility] Dyslipidemia (ICD-9-CM 272.4) Active Condition [facility] Encounter for Therapeutic Drug Monitoring (ICD-9-CM V58.83) Active Condition [facility] Hearing Loss, Sensorineural, Unspecified Active Condition [facility] Hematuria Active Condition [facility] Hyperlipidemia Active Condition [facility] Hypertension * (ICD-9-CM 401.9) Active Condition [facility] Hypertension, Benign Active Condition [facility] Impotence, Organic Active Condition [facility] Shelter Use Anticoag Active Condition [facility] Mitral valve disorders (ICD-9-CM 424.0) Active Condition [facility] Mitral Valve Insufficiency * (ICD-9-CM 424.0) Active Condition [facility] Postsurgical Status of Automatic Implantable Cardiac Defibrillator in Situ (ICD- Active Condition [facility] Medications Combined list of outpatient medications from [facility] [place] and Veterans Affairs facilities.Medications provided include 1) outpatient medications from the last 15 months, and 2) patient-reported medications. Medication Details Route Status Patient Instructions Prescription Expires Prescription Number Last Dispense Date Ordering Provider Order Date Order Qty Source APAP 250MG/ASA 250MG/CAFN 65MG TAB TAKE TWO TABLETS BY MOUTH PRN ORAL ACTIVE CHARLIE,R OSEMARY M 2004 [facility] ASPIRIN 81MG TAB,EC TAKE ONE TABLET BY MOUTH ONCE A DAY ORAL ACTIVE CHARLIE,R OSEMARY M 2004 [facility] CYANOCOBALA MIN INJ,SOLN INJECT INTRAMUS CULAR ONCE A DAY INTRAM USCULA R ACTIVE CHARLIE,R OSEMARY M 2004 [facility] LISINOPRIL 5MG TAB TAKE ONE-HALF TABLET BY MOUTH ONCE A DAY ORAL ACTIVE RENA WALTERS 2005 [facility] Immunizations Combined list of available immunizations from the Department [facility] and Veterans Affairs facilities. Immunization Series Date Given Administered By Site Reaction Lot Number CVX Code Drug Nut Feeder Status Comments Source INFLUENZA, UNSPECIFIED FORMULATION 2004 88 complet ed [facility] INFLUENZA, UNSPECIFIED FORMULATION 2002 88 complet ed [facility] PNEUMOCOCCAL, UNSPECIFIED FORMULATION 2002 109 complet ed [facility] PNEUMOCOCCAL, UNSPECIFIED FORMULATION 2001 109 complet ed [facility] TD(ADULT) UNSPECIFIED FORMULATION 2001 139 complet ed [facility] INFLUENZA, UNSPECIFIED FORMULATION 2001 88 complet ed [facility] Social History Combined list of available smoking, tobacco, and other social history from Department [facility] and Veterans Affairs facilities. Social History Type Response Date Comment [facility] e Tobacco smoking status NHIS CURRENT NON-TOBACCO USER-HX OF USE 09/05/2005 [facility] History of tobacco use TOBACCO TERMINATION STAGE 09/05/2005 [facility] History of tobacco use CURRENT NON-TOBACCO USER-HX OF USE 03/26/2005 [facility] History of tobacco use LIFETIME NON-TOBACCO USER 04/03/2004 [facility] History of tobacco use CURRENT NON-TOBACCO USER-HX OF USE 05/31/2003 STOPPED 1975 [facility] History of tobacco use CURRENT NON-TOBACCO USER-HX OF USE 09/28/2002 quit in 1975 [facility] Advance Directives List of completed, amended, or rescinded Advance Directives on record at Department of [facility] facilities. An actual copy of the Directive is not included. Date Advance Directive Provider Source 06/27/2005 ADVANCE DIRECTIVE DESMOND SHARMA [facility] 09/21/2004 ADVANCE DIRECTIVE MACY WLILIS [facility]
[2024-12-16 12:21] LABS: Folic Acid 16.9 ng/mL (2.76->20)
== END 2024-12-16 10:14 | disposition home or self-care (01) ==
PROVIDERS: PCP Family Medicine; Referring Provider Internal Medicine Cardiovascular Disease; Visit Provider Family Medicine
DX: E03.9 Hypothyroidism, unspecified (principal); R53.83 Other fatigue; R26.9 Unspecified abnormalities of gait and mobility; I48.0 Paroxysmal atrial fibrillation; R07.9 Chest pain, unspecified; R10.9 Unspecified abdominal pain; I25.10 Atherosclerotic heart disease of native coronary artery without angina pectoris; R20.0 Anesthesia of skin; I42.9 Cardiomyopathy, unspecified; I50.9 Heart failure, unspecified; R42 Dizziness and giddiness
CPT/HCPCS: 36415; 80053; 80061; 82607; 82746; 83880; 84443; 85027

== ENCOUNTER 2025-06-09 10:20 | Outpatient (CLI) | payer MEDICARE, SELFPAY ==
[2025-06-09 10:35] LABS: Hematocrit 38.9 % (42.0-52.0); Hemoglobin 12.3 g/dL (14.0-18.0); Mean Corpuscular HGB Conc 31.6 g/dl (32-36); Mean Corpuscular Hemoglobin 29.9 pg (26-34); Mean Corpuscular Volume 94.6 fl (80-100); Platelet Count Result 123 k/mm3 (150-375); Red Blood Count 4.11 M/mm3 (4.6-6.20); White Blood Count 6.0 K/mm3 (4.5-10.0)
[2025-06-09 11:01] LABS: Alanine Aminotransferase 21 U/L (6-50); Albumin Level 3.9 g/dL (3.5-5.1); Alkaline Phosphatase 75 U/L (38-126); Anion Gap 4 mmol/L (4-12); Aspartate Amino Transferase 28 U/L (17-59); Bilirubin,Total 1.1 mg/dL (0.2-1.3); Blood Urea Nitrogen 21 mg/dL (9-20); Calcium 8.9 mg/dL (8.4-10.2); Carbon Dioxide 31 mmol/L (22-30); Chloride 105 mmol/L (98-107); Estimated Glomerular Filt Rate > 60; Glucose 93 mg/dL (65-110); Potassium 4.4 mmol/L (3.4-5.0); Sodium 140 mmol/L (137-145); Total Protein 6.5 g/dL (6.3-8.2)
--- OUTSIDE RECORDS SUMMARY | 2025-06-09 11:16 | XMS_ITS | Clinical Summary ---
Author Organization [facility] Address [address] [place] [address] Care Team Providers Care Pressing Machine Operator Name Role Phone Suzi Mitchell MD Primary [...] (03/05/2022): Added automatically from request for surgery [id number] Degeneration of intervertebral disc 01/18/2021 Primary localized [...] very low and wound not plan on exterminator helper abx at this time. We will follow culture results from his hematoma. If these are positive, our plan will likely change. - ID will continue to follow peripherally while in house- please call with questions or concerns. Primary osteoarthritis of right hip 02/18/2019 Overview (02/18/2019): Added automatically from request for surgery [id number] Arteriosclerosis of coronary artery 01/20/2019 Chest pain [...] on file Legal Sex Male 3:24 AM [employer]IP[employer] Gender Identity Not on file Sexual Orientation [...] Assessment 04/20/2023 04/20/2022 Covid-19 Vaccine (5 - 2024-2 6 season) 2025 01/03/2022, 06/19/2021, 12/08/2020, Additional history exists Influenza Vaccine (#1) 2025 Medical Devices Implanted Type Area Rn Social Services Device Identifier Shelf Expiration Date Model / Serial / Lot Icd Left: Chest [employer] [id number] 56mm Limit 4 Hole Hip F Hemisphere Offset Shell Acetabular - [id number] Implanted:Qty: 1 on 03/25/2019 by Len Colon MD at [facility] Right: Hip [employer] [id number] 09/17/2028 [id number] / / [id number] [employer] [id number] Trilogy 6.5mm 25mm Self Tap Screw Bone - [id number] Implanted:Qty: 1 on 03/25/2019 by Len Colon MD at [facility] Right: Hip [employer] [id number] 07/16/2028 [id number] / / [id number] [employer] [id number] Trilogy 6.5mm 20mm Self Tap Screw Bone - [id number] Implanted:Qty: 1 on 03/25/2019 by Len Colon MD at [facility] Right: Hip [employer] [id number] 08/15/2028 [id number] / / [id number] [employer] [id number] 44mm 2 Mobility Hip F Liner Acetabular - [id number] Implanted:Qty: 1 on 03/25/2019 by Len Colon MD at [facility] Right: Hip [employer] [id number] 01/16/2029 [id number] / / [id number] [employer] [id number] Taperloc 142mm Type 1 Press Fit Reduce Hip 133d 11 High Offset - [id number] Implanted:Qty: 1 on 03/25/2019 by Len Colon MD at [facility] Right: Hip [employer] 09/22/2028 [id number] / / [id number] [employer] [id number] Active Articulation 44mm Bearing Hip Arcomxl Sterile 28mm Modular - [id number] Implanted:Qty: 1 on 03/25/2019 by Len Colon MD at [facility] Right: Hip [employer] [id number] 01/20/2024 [id number] / / [id number] [employer] [id number] 28mm Modular Hip Standard Head Femoral Biolox Delta - [id number] Implanted:Qty: 1 on 03/25/2019 by Len Colon MD at [facility] Right: Hip [employer] 08/13/2028 [id number] / / [id number] Insurance UHC MEDICARE ADVANTAGE MEDICARE FORMERLY [facility] MEDICARE FORMERLY [facility] MEDICARE ADVANTAGE [facility] MEDICARE ADVANTAGE Advance Directives For more information, please contact: [phone] * Full Code (Latest Code Status on File) Date Activated Date Inactivated Comments 03/25/2019 6:35 PM 04/06/2019 7:49 PM Care Teams Pressing Machine Operator Relationship Specialty Start Date End Date Suzi Mitchell MD [address] [facility] [address] [place] [address] PCP - General Family Medicine 04/17/22
--- OUTSIDE RECORDS SUMMARY | 2025-06-09 11:16 | XMS_ITS | Encounter Summary ---
Author Organization [facility] Address [address] [place] [address] Phone Care Team Providers Care Loader Helper Name Role Phone Srini Elizabeth MD Primary Care Provider [phone] Hanna Carey RN Unavailable [phone] Suzi Mitchell MD Primary Care Provider Encounter Details Date Type Department Care Team (Late st Contact Info) Description 03/18/2019 Telephone [facility] Orthopaedic Surgery [address] [facility] 1st Floor [address] [place] [address] Len Colon MD [address] 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 [employer] Gender Identity Not on file Sexual Orientation Not on file documented as of this encounter Plan of Treatment Not on file documented as of this encounter Visit Diagnoses Not on filedocumented in this encounter Care Teams Loader Helper Relationship Specialty Start Date End Date Srini Elizabeth MD [address] [place] [address] PCP - General 07/15/14 04/16/22 Suzi Mitchell MD [address] [facility] [address] [place] [address] PCP - General Family Medicine 04/17/22 Hanna Carey, RN [address] [place] [address] Outpatient Lead Painter 03/12/[birth year]07/05 documented as of this encounter
== END 2025-06-09 10:21 | disposition home or self-care (01) ==
PROVIDERS: PCP Family Medicine; Referring Provider Family Medicine; Visit Provider Physician Assistant Medical
DX: I50.9 Heart failure, unspecified (principal); I48.20 Chronic atrial fibrillation, unspecified; J44.9 Chronic obstructive pulmonary disease, unspecified; E03.9 Hypothyroidism, unspecified; R53.83 Other fatigue; E55.9 Vitamin D deficiency, unspecified
CPT/HCPCS: 36415; 80053; 82306; 85027

== ENCOUNTER 2025-08-23 11:43 | Emergency (ER) | payer MEDICARE, SELFPAY ==
--- NOTE | ~2025-08-23 | CT_ITS ---
CT HEAD NON-CONTRAST CT C-SPINE Clinical History: unwitnessed fall-hematoma to posterior aspect of head Comparison: None Technique: Unenhanced axial images skull base to vertex. Coronal, sagittal reformats. Axial images thoracic inlet to skull base. Sagittal and coronal reformats. CT images acquired with automatic exposure control for dose reduction DLP: 681 mGy-cm Findings: Head: Age-related atrophy. Chronic white matter microvascular ischemic changes Sulci, ventricles: Unremarkable. No intracerebral hemorrhage. No evidence acute territorial infarct. No mass effect, midline shift, intra-/extra-axial fluid collection. Bony calvarium intact. Visualized paranasal sinuses: Clear. Mastoid air cells: Clear. Small hematoma posterior scalp. C-spine: No acute fracture. Grade 1 anterolisthesis of C3 on 4. Moderate degenerative changes. Disc spaces maintained. Prevertebral soft tissues within normal limits. Visualized lung apices: Clear. Visualized thyroid: Unremarkable. No enlarged cervical nodes. IMPRESSION: HEAD: 1. No acute intracranial findings. C-SPINE: 1. No acute fracture. Reviewed, dictated and finalized at location R. SFORMER MECHANIC IMPRESSION: HEAD: 1. No acute intracranial findings. C-SPINE: 1. No acute fracture.
[2025-08-23 12:23] VITALS: BP 114/63; PULSE 80; RESP 16; TEMP 36.4; O2SAT 100
--- NOTE | 2025-08-23 12:27 | ED.FALL ---
HPI - Fall General Chief Complaint: Fall Stated Complaint: fell, hit head on blood thinner, hematoma on the b Time Seen by Provider: 08/23/25 12:22 History of Present Illness HPI Narrative: Patient was trying to hang his hat on the had trach but he rolled away from him, he tried to grab it for support and and falling, landing on his back and hitting the back of his head. He is on blood thinners. No loss of consciousness, no nausea or vomiting. Related Data Home Medications ?Medication ?Instructions ?Recorded ?Confirmed ?Last Taken ?Type magnesium oxide 400 mg PO DAILY 09/23/19 07/28/25 Unknown History tamsulosin 0.4 mg capsule 0.4 mg PO DAILY 09/23/19 07/28/25 Unknown History sacubitril 24 mg-valsartan 26 mg 1 tablet PO BID 04/26/21 07/28/25 Unknown History tablet (Entresto) atorvastatin 20 mg tablet 20 mg PO DAILY 10/26/21 07/28/25 Unknown History cholecalciferol (vitamin D3) 50 50 mcg PO DAILY 03/02/22 07/28/25 Unknown History mcg (2,000 unit) capsule omega-3 417 mg-dha 120 mg-epa-276 cap PO 03/02/22 07/28/25 Unknown History mg-fish oil 600 mg-turmeric capsule (Jackson MonoPure Curcumin EC) dofetilide 500 mcg capsule 500 mcg PO BID 01/29/25 07/28/25 Unknown History furosemide 40 mg tablet 20 mg PO QAM 01/29/25 07/28/25 Unknown History Allergies Allergy/AdvReac Type Severity Reaction Status Date / Time codeine Allergy Mild rash Verified 07/28/25 11:37 Review of Systems Review of Systems: All systems reviewed & are unremarkable except as noted in HPI and below PMFSH Past Medical History Medical History Abscess Infected sebaceous cyst 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 Smoked 22 years, less than 1/2 ppd. 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 Family History Family History Sibling Family history of cardiovascular disease, Onset Age: 49 Mother Family history of malignant neoplasm, Onset Age: 82 Other Family history of Hodgkin's lymphoma Family history of gastrointestinal disorder Hypertension Social History Social History Social History: Smoking status: Former smoker Tobacco type: cigarettes Second hand tobacco smoke exposure: No Smoking end date: 09/16/75 Alcohol intake: never Substance use: never Substance use type: does not use Lack of Transportation: No Lack of Food: Never True Current Housing: I Have Housing Concerned About Future Housing: No Difficulty Paying Gas/Electric Bills: No Difficulty Paying for Meds: No Currently Unemployed: YES Education: Decline to Answer Difficulty w/ Childcare or Family Care: No Living arrangements: with family Occupation/Education: retired Gender identity (if verbalized by the patient): Male Sexual Orientation (if Verbalized by the Patient): Straight or Heterosexual Exam Narrative: EXAMINATION OF ORGAN SYSTEMS/BODY AREAS: Constitutional: Vital signs per nursing GENERAL:[No acute distress, non-toxic appearing.] HEAD: Hematoma to back of head, no abrasion or bleeding EYES: EOMI, conjunctiva normal ENT: Hearing grossly intact LUNGS: Nonlabored breathing. HEART: [Regular rate and rhythm] ABD: [Soft], [nontender to palpation] EXT: Normal range of motion; no tenderness. No tenderness to midline SKIN: [No rashes or lesions.] NEURO: [Alert. No gross focal sensory or strength deficits.] PSYCH: Normal affect Course Vital Signs Vital signs: Vital Signs Temperature 97.6 F 08/23/25 12:23 Pulse Rate 80 08/23/25 12:23 Respiratory Rate 16 08/23/25 12:23 Blood Pressure 114/63 08/23/25 12:23 Pulse Oximetry 100 08/23/25 12:23 Oxygen Delivery Room Air 08/23/25 12:23 Temperature 97.6 F 08/23/25 12:23 Pulse Rate 80 08/23/25 12:23 Respiratory Rate 16 08/23/25 12:23 Blood Pressure 114/63 08/23/25 12:23 Pulse Oximetry 100 08/23/25 12:23 Oxygen Delivery Room Air 08/23/25 12:23 MDM MDM Narrative Medical decision making narrative: Patient presents after falling hitting his head, he is on blood thinners. Well-appearing, no tenderness to palpation across his back, any extremities, he does have a hematoma to the back of his head. CT head and C-spine thankfully negative for acute fracture or intracranial hemorrhage. Discussed with patient and family, agreeable to follow-up with PCP, ice and Tylenol as needed with return precautions Differential Diagnosis Differential Diagnosis: Intracranial hemorrhage, fracture, hematoma Imaging Data Radiologist's impression: ITS Impressions Cervical Spine CT 08/23/25 12:12 IMPRESSION: HEAD: 1. No acute intracranial findings. C-SPINE: 1. No acute fracture. Head CT 08/23/25 12:12 IMPRESSION: HEAD: 1. No acute intracranial findings. C-SPINE: 1. No acute fracture. Discharge Plan Discharge Clinical Impression: Head injury, Hematoma Patient Disposition: Home Condition: Stable Instructions: Head Injury (ED) Additional Instructions: Please follow up with your doctor; you can use ice on your head, take Tylenol as needed for pain. You can always return for any further issues. Patient Language: Lao Prescriptions: No Action Entresto 24-26 mg tablet 1 tablet PO BID Jackson MonoPure Curcumin EC 417 mg-120 mg- 276 mg-600 mg capsule PO cholecalciferol (vitamin D3) 50 mcg (2,000 unit) capsule 50 mcg PO DAILY finasteride 5 mg tablet 5 mg PO DAILY Qty: 90 4RF albuterol sulfate 90 mcg/actuation HFA aerosol inhaler 1 - 2 inh inhalation Q4-6H PRN (Reason: shortness of breath or wheezing) Qty: 8.5 2RF magnesium oxide 400 mg magnesium tablet 400 mg PO DAILY tamsulosin 0.4 mg capsule 0.4 mg PO DAILY atorvastatin 20 mg tablet 20 mg PO DAILY budesonide 160 mcg-glycopyr 9 mcg-formot 4.8 mcg/actuation HFA inhaler 160-9-4.8 mcg/actuation HFA aerosol inhaler 0RF ropinirole 0.5 mg tablet See Rx Instructions .ROUTE .COMPLEX Qty: 540 0RF Dose Instruction: TAKE 2 TABLETS BY MOUTH THREE TIMES DAILY Rx Instructions: TAKE 2 TABLETS BY MOUTH THREE TIMES DAILY levothyroxine 75 mcg tablet See Rx Instructions .ROUTE .COMPLEX Qty: 100 3RF Dose Instruction: TAKE 1 TABLET BY MOUTH DAILY Rx Instructions: TAKE 1 TABLET BY MOUTH DAILY digoxin 125 mcg (0.125 mg) tablet See Rx Instructions .ROUTE .COMPLEX Qty: 90 1RF Dose Instruction: TAKE 1 TABLET BY MOUTH EVERY DAY FOUR DAYS OF THE WEEK DIRECTED Rx Instructions: TAKE 1 TABLET BY MOUTH EVERY DAY FOUR DAYS OF THE WEEK DIRECTED dofetilide 500 mcg capsule 500 mcg PO BID furosemide 40 mg tablet 20 mg PO QAM tramadol 50 mg tablet 50 mg PO QID PRN (Reason: chronic pain) Qty: 120 0RF Breztri Aerosphere 160-9-4.8 mcg/actuation HFA aerosol inhaler See Rx Instructions .ROUTE .COMPLEX Qty: 10.7 5RF Dose Instruction: INHALE 2 PUFFS BY MOUTH TWICE DAILY. RINSE AND SPIT AFTERWARDS Rx Instructions: INHALE 2 PUFFS BY MOUTH TWICE DAILY. RINSE AND SPIT AFTERWARDS gabapentin 300 mg capsule See Rx Instructions .ROUTE .COMPLEX Qty: 180 0RF Dose Instruction: TAKE 1 CAPSULE BY MOUTH TWICE DAILY Rx Instructions: TAKE 1 CAPSULE BY MOUTH TWICE DAILY Follow-up/Referrals: Josesito Flores MD [Primary Care Provider, Family Practice] - 2 Days
== END 2025-08-23 12:33 | disposition home or self-care (01) ==
LOC: ANHED 12:28
PROVIDERS: Emergency Provider Emergency Medicine; PCP Family Medicine
DX: S00.03XA Contusion of scalp, initial encounter (principal); I48.91 Unspecified atrial fibrillation; Z79.01 Long term (current) use of anticoagulants; Z95.0 Presence of cardiac pacemaker; W01.0XXA Fall on same level from slipping, tripping and stumbling without subsequent striking against object, initial encounter
CPT/HCPCS: 70450; 72125; 99284